=== PATIENT | female | born 1985 | race Caucasian/White ===

== ENCOUNTER 2016-05-09 12:03 | Emergency (ER) | payer OTHER, BC ==
[~2016-05-09] VITALS: Ht 167.6 cm; Wt 66.0 kg
[~2016-05-09 12:03] MED LIST: HYDR-3989 PO; IBUP-1547 PO; LEVO25TA49 PO; PREN1TAB53 PO
[2016-05-09 12:05] VITALS: Ht 167.6 cm; Wt 66.0 kg
--- NOTE | 2016-05-09 13:12 | NUR ---
PROVIDER Piper MATOS AMORTIZATION CLERK IN TO SEE PATIENT.
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
[2016-05-09 13:30] VITALS: BP 124/77; PULSE 70; RESP 14; TEMP 98; O2SAT 98
== END 2016-05-09 13:30 | disposition home or self-care (01) ==
LOC: ED 12:03
DX: Z04.1 Encounter for examination and observation following transport accident (principal); V49.40XA Driver injured in collision with unspecified motor vehicles in traffic accident, initial encounter; Y93.89 Activity, other specified; Y92.410 Unspecified street and highway as the place of occurrence of the external cause; Y99.8 Other external cause status

== ENCOUNTER → 2016-06-22 | Outpatient (CLI) | payer BC ==
[~2016-06-22] MED LIST changes: -HYDR-3989 PO; -IBUP-1547 PO; -LEVO25TA49 PO
[2016-06-22 16:14] LABS: HCG-QUANTITATIVE 328.94 mIU/mL
[2016-06-22 17:38] LABS: ALBUMIN 4.5 G/DL (3.5-5.0); ALBUMIN/GLOBULIN RATIO 1.6 RATIO (1.1-2.2); ALKALINE PHOSPHATASE 51 U/L (38-126); ALT (SGPT) 37 U/L (9-52); ANION GAP 14 MEQ/L (5-15); AST (SGOT) 19 U/L (14-36); BUN/CREATININE RATIO 13 RATIO (6-26); CALCIUM 9.6 MG/DL (8.4-10.2); CHLORIDE 108 MEQ/L (98-107); CO2 - CARBON DIOXIDE 19 MEQ/L (22-30); CREATININE 0.8 MG/DL (0.7-1.2); GLOMERULAR FILTRATION RATE 85; GLUCOSE 104 MG/DL (65-110); POTASSIUM 3.6 MEQ/L (3.6-5); SODIUM 141 MEQ/L (134-144); TOTAL PROTEIN 7.4 G/DL (6.3-8.2)
== END ==
LOC: LAB 15:28
PROVIDERS: ATTEND Obstetrics & Gynecology
DX: R10.30 Lower abdominal pain, unspecified (principal)
CPT/HCPCS: 36415; 80053; 84702

== ENCOUNTER 2017-10-08 05:00 | Inpatient (IN) ==
[2017-10-08] MEDS ORDERED: ACETAMINOPHEN 500 MG TABLET PO PRN (05:24)
[2017-10-08] MEDS ORDERED: MAG-AL + SIM ORAL LIQUID 30ml PO PRN (05:24)
[2017-10-08] MEDS ORDERED: LIDOCAINE 1% (10mg/ml) 2mL INJ PF SDV ID PRN (05:24)
[2017-10-08] MEDS ORDERED: D5LR 1,000 ML IV PRN (05:24)
[2017-10-08] MEDS ORDERED: SALINE FLUSH 10ml SYRINGE IV PRN (05:24)
[2017-10-08] MEDS ORDERED: METHYLERGONOVINE 0.2 MG/ML INJECTION IM PRN (05:24)
[2017-10-08] MEDS ORDERED: OXYTOCIN DRIP 30 UNIT/500 ML ML IV PRN (05:24)
[2017-10-08] MEDS ORDERED: CARBOPROST 250 MCG/ML INJECTION IM PRN (05:24)
[2017-10-08] MEDS ORDERED: CALCIUM CARBONATE Chewable 500mg TABLET PO PRN (05:24)
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
--- OUTSIDE RECORDS SUMMARY | 2017-10-08 05:24 | External Medical Summary | Continuity of Care Document ---
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) - (routine) w/o 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 Encounter for suprvsn of normal - , third trimester 31 weeks gestation of - Encounter for suprvsn of normal - , second trimester 23 weeks gestation of - Other specified hypothyroidism Other specified hypothyroidism - Acute upper respiratory infection, - unspecified Encounter for suprvsn of normal - , second trimester 15 weeks gestation of - Irregular Menses Threatened Lower abdominal pain, unspecified Pari Encounter for ot general cnsl and advice on procreation Unspec [...] third tri 33 weeks gestation of - Endo, nutritional and [...] third trimester 29 weeks gestation of - Personal history of comp of preg, chldbrth and the puerp Personal history of comp of preg, chldbrth and the puerp Hypothroidism, Unspecified - Active Abdominal Pain LLQ - Active Active Procedures Procedure Date Immuniz admnin, 1 vac, sngl/combo 19 Yrs + TDAP VACCINE >7 IM OB Visit No Charge Results Test Name Date and Time Measure Units Reference Range Abnormal Flag Comments Unknown Advance Directives Directive Yes / No Effective Date File Name Unknown Encounters Encounter Practice Location Reason(s) Diagnoses Date Provider Care Team Description For Visit [facility] [facility]aternal care for Denilson-0 Nj Referring In Womens excess 5-201 Gabbi. Provider: Fili CHUA, growth, third [address], [address] trimester, [id number] Medical [address], weeks gestation [facility], of , [place], [place], 120, [facility], [id number], [place], [address]. [place], tel:+ tel:+ [phone] , [place]. tel: [phone] Brock [place] Maternal care for Denilson-0 Nj Referring In Womens Ultrasound excess 5-201 Gabbi. Provider: Fili CHUA, growth, third [address], PO Box trimester, Medical [address], unspEndo, [facility], nutritional and , [place], metab diseases 120, [facility], , comp [place], [place], [address]. [place] tri33 weeks [place], tel:+ tel:+ gestation of [phone] , [place]. tel: [phone] Brock [place] Encounter for Joshua-2 Nj Referring In Womens suprvsn of normal 6-201 Gabbi. Provider: Fili CHUA, , third [address], PO Box weeks Medical [address], gestation of [facility], [place], 120, [facility], , [place], [address]. [place], tel:+ tel:+ [phone] , [place]. tel: [phone] Brock [place] Encounter for Joshua-1 Nj Referring In Womens suprvsn of normal 2-201 Gabbi. Provider: Fili CHUA, , third [address], PO Box [id number] weeks Medical [address], gestation of [facility], [place], 120, [facility], , [place], [address]. [place], tel:+ tel: [phone] , [place]. tel: [phone] [facility] May-2 Nj In Womens 5-201 Gabbi. [facility], 8 700 [address] Medical [address]22, Ronald [facility], Dr [facility], 120, [id number], [place], tel: [phone] , [place]. tel: [phone] [facility] Benson, nutritional May-2 Nj Referring In Womens and metab 4-201 Gabbi. Provider: [facility], diseases comp [address], PO Box preg, second Medical [address], triEncounter for [facility], [place] of normal [place], , second 120, [facility], [id number], [id number] [place], [address]. [place] gestation of [place], tel: tel: [phone] , [place]. tel: [phone] [facility] Green for May-0 Nj Referring In Womens suprvsn of normal 1-201 Gabbi. Provider: Health PA, , second [address], PO Box [id number] weeks Medical [address], gestation of [facility], [place], 120, [facility], [id number], [place], [address]. [place], tel: tel:[phone] , [place]. tel: [phone] [facility] Benson nutritional Apr-0 Nj Referring In Womens and metab 4-201 Gabbi. Provider: [facility], diseases comp [address], PO Box preg, second Medical [address], [facility], louisen of normal [place], , second 120, [facility], [id number], [id number] [place], [address]. [place] gestation of [place], tel:+ tel: [phone] , [place]. tel:[phone] [facility] Maternal care for Apr-0 Nj Referring In Womens Ultrasound excess 4-201 Gabbi. Provider: Health HARSHIL, growth, second [address], PO Box tri, unspEndo, Medical [address], nutritional and [facility], metab diseases [place], comp preg, second 120, [facility], [id number], tri20 [place], [address]. [place] gestation of [place], tel: tel: [phone] , [place]. tel: [phone] [facility] Acute upper Mar-0 Nj Referring In Womens respiratory 5-201 Gabbi. Provider: Health HARSHIL, infection, [address], PO Box unspecifiedEncoun Medical [address], ter for suprvsn [facility], of normal [place], , second 120, [facility], [id number], [id number] [place], [address]. [place] gestation of [place], tel: tel: [phone] , [place]. tel: [phone] Brock [place] Maternal care for Feb-2 Nj Referring In Womens excess 6-201 Gabbi. Provider: Fili CHUA, growth, second [address], PO Box tri, [id number] weeks Medical [address], gestation of [facility], [place], 120, [facility], [id number], [place], [address]. [place], tel: tel: [phone] , [place]. tel: [phone] [facility] Encounter for Regino-3 Nj Referring In Womens suprvsn of normal 0-201 Gabbi. Provider: Health HARSHIL, , first [address], PO Box [id number] weeks Medical [address], gestation of [facility], [place], 120, [facility], [id number], [place], [address]. [place], tel: tel: [phone] , [place]. tel: [phone] [facility] Encounter for Regino-0 Nj Referring In Womens suprvsn of normal 2-201 Gabbi. Provider: Health HARSHIL, , first [address], PO Box trimesterLess Medical [address], than 8 weeks [facility], gestation of , [place], 120, [facility], , [place], [address]. [place], tel: tel: [phone] , [place]. tel: [phone] [facility] Suprvsn of preg w Jan- Nj Referring In Womens history of ect or 0-201 Gabbi. Provider: Fili CHUA, molar preg, first [address], PO Box tri Medical [address], [facility] Dr Alyssia, [place], 120, [facility], , [place], [address]. [place], tel: tel:[phone] , [place]. tel: [phone] [facility] Personal history Jan- Nj In Womens of comp of preg, 1-201 Gabbi. Health HARSHIL, natali and the 7 700 [address] Box puerp Medical 15[address], [address] Dr Alyssia, [facility], 120, [id number], [place], [place], tel: [phone] , [place]. tel: [phone] [facility] MittelschmerzEnmn Sep-2 Nj Referring In Womens unter for oth 9-201 Gabbi. Provider: Health HARSHIL, general cnsl and [address], PO Box advice on Medical [address], procreation [facility] A[facility], [place], 120, [facility], , [place], [address]. [place], tel: tel: [phone] , [place]. tel: [phone] Brock [place] Pelvic and Aug-2 Nj In Womens perineal pain 1-201 Gabbi. Fili CHUA, 7 700 [address] Medical [address], [address] Dr Alyssia, [facility], 120, [id number], [place], [place], tel:+ [phone] , [place]. tel: [phone] [facility] Personal history Joshua-1 Curiel Referring In Womens of comp of preg, 5-201 Luz. Provider: Fili CHUA, rick and the [address], PO Box puerp Medical [address], [facility] [address] Alyssia, [place], [place], 120, [facility], , [place], [address]. [place], tel: tel: [phone] , [place]. tel: [phone] [facility] Unspec ectopic May-2 Curiel In Womens preg w/out 3-201 Luz. Fili CHUA, intrauterine preg 7 700 PO [facility] [address], [address] Alyssia, [facility], 120, [id number], [place], tel:+ [phone] , [place]. tel: [phone] [facility] Unspec ectopic May-1 Curiel In Womens preg w/out 7-201 Luz. Fili CHUA, intrauterine preg 7 700 PO [facility] [address], [address] Dr Alyssia, [facility], 120, [id number], [place], [place], tel: [phone] , [place]. tel: [phone] [facility] Encounter for May-0 Curiel Referring In Womens test, 9-201 Luz. Provider: Fili CHUA, result unknown 7 [address], PO Box Medical [address], [facility] [address] Alyssia, [place], [place], 120, [facility], , [place], [address]. [place], tel:+ tel:+ [phone] , [place]. tel: [phone] [facility] Unspec ectopic May-0 Curiel In Womens preg w/out 9-201 Luz. Health PA, intrauterine preg 7 700 PO Box Medical 1522, Center Dr Alyssia, [facility], 120, [id number], [place], [place], tel: [phone] , [place]. tel: [phone] [facility] Unspec ectopic May-0 Curiel Referring In Womens preg w/out 4-201 Luz. Provider: Health PA, intrauterine preg [address], PO Box Medical [address], [facility] [address] Alyssia, [place], [place], 120, [facility], [id number], [place], [address]. [place], tel: tel:[phone] , [place]. tel: [phone] [facility] Unspec ectopic May-0 Curiel Referring In Womens preg w/out 1-201 Luz. Provider: Health HARSHIL, intrauterine [address], PO Box preg Medical [address], state, incidental [facility] Alyssia, [place], [place], 120, [facility], [id number], [place], [address]. [place], tel: tel:[phone] , [place]. tel: [phone] [facility] Threatened May-0 Curiel Referring In Womens Ultrasound abortionLower 1-201 Luz. Provider: Health HARSHIL, abdominal pain, 7 [address], PO Box unspecified Medical [address], [facility] [address] Alyssia, [place], [place], 120, [facility], [id number], [place], [address]. [place] tel: tel: [phone] , [place]. tel: [phone] [facility] Lower abdominal Apr-2 Curiel In Womens pain, unspecified 8-201 Luz. Health HARSHIL, 7 700 PO Box Medical [address], [address] Alyssia, [facility], 120, [id number], [place], tel: [phone] , [place]. tel: [phone] Brock [place] Threatened Apr-2 Curiel Referring In Womens 7-201 Luz. Provider: Fili CHUA, 7 [address], PO Box Medical [address], [facility] [address] Alyssia, [place], [place], 120, [facility], , [place], [address]. [place], tel: tel: [phone] , [place]. tel: [phone] Brock [place] Irregular Apr-2 Curiel Referring In Womens MensesThreatened 5-201 Luz. Provider: Fili CHUA, abortionLower 7 [address], PO Box abdominal pain, Medical [address], unspecified [facility] [address] Alyssia, [place], [place], 120, [facility], , [place], [address]. [facility], tel: tel: [phone] , [place]. tel: [phone] Brock [place] Other specified Nov-1 Curiel Referring In Womens hypothyroidism 4-201 Luz. Provider: Fili CHUA, 6 [address], PO Box Medical [address], [facility] [address] Alyssia, [place], [place], 120, [facility], , [place], [address]. [place], tel:+ tel: [phone] , [place]. tel: [phone] Brock [place] Other specified Oct-2 Curiel In Womens hypothyroidism 7-201 Luz. Fili CHUA, 6 700 PO Box Medical [address], [address], [facility], 120, , [place], [place], tel: [phone] , [place]. tel: [phone] Brock [place] Encntr for manager membership Denilson-1 Curiel Referring In Womens exam (general) 9-201 Luz. Provider: Fili CHUA, (routine) w/o abn 6 [address], PO Box findings Medical [address], [facility] [address] Alyssia, [place], [place], 120, [facility], [id number], [place], [address]. [place], tel: tel: [phone] , [place]. tel: [phone] Brock [place] Dec-2 [place] Referring In Womens 2-201 Tamera. Provider: Health HARSHIL, [address], [facility] Medical [address], [facility] [address] Alyssia, [place], [place], 120, [facility], [id number], [place], [address]. [place], tel:+ tel: [phone] , [place]. tel: [phone] Brock [place] Oct-2 [place] Referring In Womens 0-201 Tamera. Provider: Health HARSHIL, 4 700 [address] Box Medical [place] 1522, Center S, [address], [facility], 120, Ronald , [facility], [place], tel: [phone] [place], , [place]. [id number]. tel: tel: [phone] Brock [place] Sep-1 [place] Referring In Womens 9-201 Tamera. Provider: Health HARSHIL, 4 700 [address] Box Medical [place] 1522, Center S, [address] Dr [address]lyssia, [facility], 120, Ronald [id number], [facility] 120, [place], tel:[phone] [place], , [place]. [id number]. tel: tel: [phone] Brock [place] Apr-2 [place] In Womens 1-201 Tamera. Health [facility], 4 700 [facility] Medical 1522, [address] Alyssia, [facility], 120, [id number], [place], [place], tel: [phone] , [place]. tel: [phone] Family History Family Member Diagnosis Age At [...] name Insurance type Covered republican ID Authorization(s) [facility] [id number] [facility] [id number] [facility] [id number] [facility] [id number] Social History Type Description Quantity Date Captured Alcohol Use Details No Caffeine Use Details Unknown Tobacco Use Status Unknown Smoking Status Never smoker Vital Signs Date / Height Weight BMI Pulse Blood Temperature Respiratory Body Head BMI Time: Rate Pressure Rate Surface Circumference percentile Area 169.90 29.1 -2018 lbs 6 8:49 kg/m AM eter (2) 169.90 29.1 107/69 -2018 lbs 6 mm[Hg] 8:49 kg/m AM eter (2) Chief Complaint And Reason For Visit Unknown Chief Complaint And Reason For Visit Reason For Referral Reason For Referral Unknown Plan Of Care Date Type Action Status Goal Lifestyle education regarding completed diet Goal Lifestyle education regarding completed diet Goal Lifestyle education regarding completed diet Appointment Francesca Sanders BOOKED Future Order: Radiology Order Complete OB Ultrasound > 14 Weeks Ordered ([id number]) Future Order: Radiology Order Ultrasound OB Follow-up ([id number]) Ordered Future Order: Lab Order hCG,Beta Subunit, Qnt, Serum Ordered ([id number]) Date Type Problem Goal Intervention Status Start [...]
--- OUTSIDE RECORDS SUMMARY | 2017-10-08 05:24 | External Medical Summary | Continuity of Care Document ---
:1985 Author Organization [facility] Address [address] [place], [place] [id number] Phone Care Team Providers Name Role Phone [...] (start - stop) Clinical Status Encntr for die forger exam (general) - (routine) w/o 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 Maternal care for excess growth, - third trimester, unsp 33 weeks gestation of - Other specified hypothyroidism Other specified hypothyroidism - Acute upper respiratory infection, - unspecified Encounter for suprvsn of normal - , second trimester 15 weeks gestation of - Irregular Menses Threatened Lower abdominal pain, unspecified [facility] Encounter for ot general cnsl and advice [...] third tri 33 weeks gestation of - Maternal care [...] LLQ - Active Active Procedures Procedure Date OB Visit No Charge Results Test Name [...] [address], unspEncounter for [facility] [place], suprvsn of normal Drive, [place], [place], , third [address] [place], [id number], [email or web address] weeks 120, [place], [address]. [place] gestation of [place], tel:+ tel:+ [phone], [place]. tel: [phone] [facility] Maternal care for Denilson-0 Nj Referring In Womens excess 5-201 Gabbi. Provider: Fili CHUA, growth, third [address], PO Box trimester, unsp33 Medical [address], weeks gestation [facility] [place], of [place], 120, [place], , [place], [address]. [place], tel:+ tel: [phone] , [place]. tel: [phone] [facility] Maternal care for Denilson-0 Nj Referring In Womens Ultrasound excess 5-201 Gabbi. Provider: Fili CHUA, growth, third [address], PO Box trimester, Medical [address], unspEndo, [facility] [place], nutritional and [place], metab diseases 120, [place], , comp preg, [place], [address]. [place] tri33 weeks [place], tel:+ tel:+ gestation of [phone] , [place]. tel: [phone] [facility] Encounter for Joshua-2 Nj Referring In Womens suprvsn of normal 6-201 Gabbi. Provider: Fili CHUA, , third [address], PO Box [email or web address] weeks Medical [address], gestation of [facility] [place], [place], 120, [place], , [place], [address]. [place], tel: tel: [phone] , [place]. tel: [phone] Brock [place] Encounter for Joshua-1 Nj Referring In Womens suprvsn of normal 2-201 Gabbi. Provider: Health PA, , third [address], PO Box [email or web address] weeks Medical [address], gestation of [facility] [place], [place], 120, [place], [id number], [place], [address]. [place], tel:+ tel: [phone] , [place]. tel: [phone] Brock [place] May-2 Nj In Womens 5-201 Gabbi. Health PA, 8 700 [address] Medical [address]22, [place], , [facility], 120, [id number], [place], tel: [phone] , [place]. tel: [phone] Brock Benson nutritional May-2 Nj Referring In Womens and metab 4-201 Gabbi. Provider: Health [place], diseases comp [address], PO Box preg, second Medical [address], triEncounter for [facility] [place], suprvsn of normal [place], , second 120, [place], [id number], [place], [address]. [place] gestation of [place], tel: tel: [phone] , [place]. tel: [phone] Brock [place] Encounter for May-0 Nj Referring In Womens suprvsn of normal 1-201 Gabbi. Provider: Health [facility], , second [address], PO Box [id number] weeks Medical [address], gestation of [facility] [place], [place], [place], 120, [place], [id number], [place], [address]. [place], tel: tel: [phone] , [place]. tel: [phone] [facility] [place] End[facility], nutritional Apr-0 Nj Referring In Womens and metab 4-201 Gabbi. Provider: Health HARSHIL, diseases comp [address], PO Box preg, second Medical [address], triEncounter for [facility] [place], suprvsn of normal [place], , second 120, [place], [id number], [id number] [place], [address]. [place] gestation of [place], tel:+ tel:+ [phone] , [place]. tel: [phone] Brock [place] Maternal care for Apr-0 Nj Referring In Womens Ultrasound excess 4-201 Gabbi. Provider: Health HARSHIL, growth, second [address], PO Box tri, unspEndo, Medical [address], nutritional and [facility] [place], metab diseases , [place], comp preg, second 120, [place], [id number], tri20 [place], [address]. [place] gestation of [place], tel:+ tel:+ [phone] , [place]. tel: [phone] Brock [place] Acute upper Mar-0 Nj Referring In Womens respiratory 5-201 Gabbi. Provider: Fili CHUA, infection, [address], PO Box unspecifiedEncoun Medical [address], ter for suprvsn [facility] [place], of normal [place], , second 120, [place], [id number], [id number] [place], [address]. [place] gestation of [place], tel:+ tel:[phone] , [place]. tel: [phone] [facility] Maternal care for Feb-2 Nj Referring In Womens excess 6-201 Gabbi. Provider: Health PA, growth, second [address], PO Box tri, [email or web address] weeks Medical [address], gestation of [facility] [place], [place], 120, [place], [id number], [place], [address]. [place], tel:+ tel: [phone] , [place]. tel: [phone] Brock [place] Encounter for Feb-3 Nj Referring In Womens suprvsn of normal 0-201 Gabbi. Provider: Fili CHUA, , first [address], PO Box [email or web address] weeks Medical [address], gestation of [facility] [place], [place], 120, [place], , [place], [address]. [place], tel: tel: [phone] , [place]. tel: [phone] Brock [place] Encounter for Feb-0 Nj Referring In Womens suprvsn of normal 2-201 Gabbi. Provider: Fili CHUA, , first [address], PO Box trimesterLess Medical [address], than 8 weeks [facility] [place], gestation [place], 120, [place], , [place], [address]. [place], tel: tel: [phone] , [place]. tel: [phone] Brock [place] Suprvsn of preg w Jan- Nj Referring In Womens history of ect or 0-201 Gabbi. Provider: Fili CHUA, molar preg, first [address], PO Box tri Medical [address], Center [address]riage Dr Alyssia, [place], 120, [place], , [place], [address]. [place], tel: tel: [phone] , [place]. tel: [phone] Brock [place] Personal history Dec- Nj In Womens of comp of preg, 1-201 Gabbi. rick Keating and the 7 700 [address] Box puerp Medical [address], [place] [address], [facility], 120, , [place], [place], tel: [phone] , [place]. tel: [phone] [facility]-2 Nj Referring In Womens unter for oth 9-201 Gabbi. Provider: Health HARSHIL, general cnsl and [address], PO Box advice on Medical [address], procreation [facility] [address] Alyssia, [facility], [place], 120, [place], [id number], [place], [address]. [place], tel:+ tel:+ [phone] , [place]. tel: [phone] [facility] Pelvic and Sep-2 Nj In Womens perineal pain 1-201 Gabbi. Fili CHUA, 7 700 [address] Medical [address], [place] [address], [facility], 120, , [facility] [place], tel:+ [phone] , [place]. tel: [phone] [facility] Personal history Joshua-1 Curiel Referring In Womens of comp of preg, 5-201 Luz. Provider: Fili CHUA, rick and the [address], PO Box puerp Medical [address], Center [facility] [address] Alyssia, [place], [place], 120, [place], [id number], [place], [address]. [place], tel:+ tel:+ [phone] , [place]. tel: [phone] [facility] Unspec ectopic May-2 Curiel In Womens preg w/out 3-201 Luz. Health HARSHIL, intrauterine preg 7 700 [address] Medical [address], [place] [address], [facility], 120, [id number], [place], [place], tel:+ [phone] , [place]. tel:[phone] [facility] Unspec ectopic May-1 Curiel In Womens preg w/out 7-201 Luz. Fili CHUA, intrauterine preg 7 700 [address] Medical [address], [place] [address], [facility] [place], 120, [id number], [place], [place], tel:+ [phone] , [place]. tel: [phone] [facility] Encounter for May-0 Curiel Referring In Womens test, 9-201 Luz. Provider: Fili CHUA, result unknown [address], PO Box Medical [address], [facility] [address] [address], [place], [place], 120, [place], [id number], [place], [address]. [place], tel:+ tel:+ [phone] , [place]. tel: [phone] [facility] Unspec ectopic May-0 Curiel In Womens preg w/out 9-201 Luz. Fili CHUA, intrauterine preg 7 700 [address] Medical [address], [address], [facility], 120, [id number], [place], tel: [phone] , [place]. tel: [phone] [facility] Unspec ectopic May-0 Curiel Referring In Womens preg w/out 4-201 Luz. Provider: Fili CHUA, intrauterine preg [address], PO Box Medical [address], Center [address]lyss[place], [facility] [place], [place], 120, [place], [id number], [place], [address]. [place], tel:+ tel: [phone] , [place]. tel: [phone] [facility] Unspec ectopic May-0 Curiel Referring In Womens preg w/out 1-201 Luz. Provider: Fili CHUA, intrauterine [address], PO Box preg Medical [address], state, incidental [facility] [address], [place], [place], 120, [place], [id number], [place], [address]. [place], tel:+ tel: [phone] , [place]. tel: [phone] [facility] Threatened May-0 Curiel Referring In Womens Ultrasound abortionLower 1-201 Luz. Provider: Flii CHUA, abdominal pain, [address], PO Box unspecified Medical [address], [facility] [address] [address], [place], [place], 120, [place], , [place], [address]. [place], tel: tel: [phone] , [place]. tel: [phone] [facility] Lower abdominal Apr-2 Curiel In Womens pain, unspecified 8-201 Luz. Fili CHUA, 7 700 PO [address] Medical [address], Center Dr [address]lyssia, [facility], 120, [id number], [place], [place], tel: [phone] , [place]. tel: [phone] [facility] Threatened Apr-2 Curiel Referring In Womens 7-201 Luz. Provider: Fili CHUA, [address], PO Box Medical [address], [address]lyss[address], [place], [place], 120, [place], , [place], [address]. [place], tel: tel:[phone] , [place]. tel: [phone] [facility] Irregular Apr-2 Curiel Referring In Womens MensesThreatened 5-201 Luz. Provider: Fili CHUA, abortionLower 7 [address], PO Box abdominal pain, Medical [address], unspecified [facility] [address], [place], [place], 120, [place], , [place], [address]. [facility], tel: tel:[phone] , [place]. tel: [phone] [facility] Other specified Nov-1 Curiel Referring In Womens hypothyroidism 4-201 Luz. Provider: Fili CHUA, [address], PO Box Medical [address], [address]lyss[address], [place], [place], 120, [place], , [place], [address]. [facility], tel:+ tel:[phone] , [place]. tel: [phone] [facility] Other specified Oct-2 Curiel In Womens hypothyroidism 7-201 Luz. Health HARSHIL, 6 700 [address] Medical [address], [address] Dr [address]lyss[address], [facility] [place], 120, [id number], [place], [place], tel: [phone] , [place]. tel: [phone] [facility] Encntr for die forger Denilson-1 Curiel Referring In Womens exam (general) 9-201 Luz. Provider: Health HARSHIL, (routine) w/o abn [address], PO Box [facility] Medical [address], [address]lyss[address], [place], [place], 120, [place], [id number], [place], [address]. [place], tel:+ tel: [phone] , [place]. tel: [phone] Brock [place] Dec-2 Holdj[place] c Referring In Womens 2-201 Tamera. Provider: Health HARSHIL, [address], PO Box Medical [address], Center [facility] [address], [place], [place], 120, [place], [id number], [place], [address]. [place], tel: tel:[phone] , [place]. tel: [phone] Brock [place] Oct-2 [place] Referring In Womens 0-201 Tamera. Provider: Fili CHUA, 4 700 [place] PO Box Medical [place] [address], Center S, [address], Psychiatric, 120, [place] [id number], [facility], [place], tel: [phone] [place], , [place]. [id number]. tel: tel: [phone] Brock [place] Sep-1 Marc Referring In Womens 9-201 Tamera. Provider: Health HARSHIL, 4 700 [place] [address] Box Medical [place] [address], Center S, [address], [facility] [place], 120, [place] [id number], [facility], [place], tel:[phone] [place], , [place]. [id number]. tel: tel: [phone] Brock [place] Marc In Womens 1-201 Tamera. [facility], 4 700 PO [facility] 15[address], [place] [address], [facility], 120, [id number], [place], [place], tel:[phone] , [place]. tel: [phone] Family History Family Member Diagnosis Age At [...] older Payers Payer name Insurance type Covered libertarian ID Authorization(s) [facility] [id number] [facility] [id number] [facility] [id number] [facility] [id number] Social History Type Description Quantity Date Captured Alcohol Use Details No Caffeine Use Details Unknown Tobacco Use Status Unknown Smoking Status Never smoker Vital Signs Date / Height Weight BMI Pulse Blood Temperature Respiratory Body Head BMI Time: Rate Pressure Rate Surface Circumference percentile Area 171.30 29.4 107/69 2018 lbs 0 mm[Hg] 9:16 kg/m AM eter (2) 6 9:10 kg/m AM eter (2) Chief Complaint And [...] Complete OB Ultrasound > 14 Weeks Ordered ([id number]) Future Order: Radiology Order Ultrasound OB Follow-up ([id number]) Ordered Future Order: Lab Order hCG,Beta Subunit, Qnt, Serum Ordered ([id number]) Date Type Problem Goal Intervention Status Start [...]
--- OUTSIDE RECORDS SUMMARY | 2017-10-08 05:24 | External Medical Summary | Continuity of Care Document ---
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 Maternal care for excess growth, - third trimester, unsp Encounter for suprvsn of normal - , third trimester 35 weeks gestation of - Other specified hypothyroidism Other specified hypothyroidism - Acute upper respiratory infection, - unspecified Encounter for suprvsn of normal - , second trimester 15 weeks gestation of - Irregular Menses Threatened Lower abdominal pain, unspecified Mitteludy Encounter for oth general cnsl and advice [...] for excess growth, - third trimester, unsp 36 weeks gestation of - Maternal care for excess growth, - third trimester, unsp Endo, nutritional and metab diseases - comp preg, third tri 33 weeks gestation of - Maternal care for excess growth, - third trimester, unsp Encounter for suprvsn of normal - , third trimester 37 weeks gestation of - Endo, nutritional and [...] Procedures Procedure Date OB Visit No Charge lupis Burksnsm, screen Results Test Name Date and Time Measure Units Reference Range Abnormal Flag Comments Panel Description: Strep Gp B Culture Strep Gp B Negative Negative Centers for Disease Control Culture 10:57:00 and Prevention (CDC) and [place] Congressof Obstetricians and Gynecologists (ACOG) guidelines for prevention ofperinatal group B streptococcal (GBS) disease specify co-collection ofa vaginal and rectal swab specimen to maximize sensitivity of GBSdetection. Per the CDC and ACOG, swabbing both the lower vagina andrectum substantially increases the yield of detection compared withsampling the vagina alone. .Penicillin G, ampicillin, or cefazolin are indicated for intrapartumprophylaxis of GBS colonization. Reflex susceptibilitytesting should be performed prior to use of clindamycin only on GBSisolates from penicillin-allergic women who are considered a high riskfor anaphylaxis. Treatment with vancomycin without additional testingis warranted if resistance to clindamycin is noted. Advance Directives Directive Yes / No Effective Date File Name Unknown Encounters Encounter Practice Location Reason(s) Diagnoses Date Provider Care Team Description For Visit Members Brock [place] Maternal care for Nj Referring In Womens excess 3-201 Gabbi. Provider: Fili CHUA growth, third 8 [address], PO Box trimester, Medical [address], unspEncounter for Center Carriage [place] of normal [place], , third 120, [place], [id number], [email or web address] [place], [address]. [place] gestation of [place], tel: tel: [phone] , [place]. tel: [phone] Brock [place] Maternal care for Nj Referring In Womens excess 6-201 Gabbi. Provider: Fili CHUA, growth, third [address], PO Box trimester, [email or web address] Medical [address], weeks gestation Center Carriage [place], of [place], 120, [place], [id number], [place], [address]. [place], tel: tel:[phone] , [place]. tel: [phone] [facility] Maternal care for Denilson-1 Sobbing Referring In Womens excess 9-201 Brady. Provider: Fili CHUA, growth, third [address], PO Box trimester, Medical [address], unspEncounter for Center Carriage [place], suprvsn of normal Drive, [place], [place], , third Suite [employer] [place], [id number], [email or web address] weeks [facility] [place], [address]. [place] gestation of [place], tel: tel: [place], [phone], [place]. tel: [phone] [facility] Maternal care for Denilson-0 Nj Referring In Womens excess 5-201 Gabbi. Provider: Fili CHUA, growth, third [address], PO Box trimester, [email or web address] Medical [address] 15[address], weeks gestation Center Carriage [place], of Dr, [facility] [place] [place], 120, [place], [id number], [place], [address]. [place], tel: tel:[phone] , [place]. tel: [phone] [facility] Maternal care for Denilson-0 Nj Referring In Womens Ultrasound excess 5-201 Gabbi. Provider: Fili CHUA, growth, third [address], PO Box trimester, Medical [address], unspEndo, Center Carriage [place], nutritional and Reji [place], [place], metab diseases 120, [place], [id number], comp preg, [place], [address]. [place] tri33 weeks [place], tel:+ tel: gestation of [phone] , [place]. tel: [phone] [facility] Encounter for Joshua-2 Nj Referring In Womens suprvsn of normal 6-201 Gabbi. Provider: Fili CHUA, , third [address], PO Box [email or web address] weeks Medical [address], gestation of Center Carriage [place], Re[place], 120, [place], [id number], [place], [address]. [place], tel: tel: [phone] , [place]. tel: [phone] Brock [place] Encounter for Joshua-1 Nj Referring In Womens suprvsn of normal 2-201 Gabbi. Provider: Health HARSHIL, , third [address], PO Box [email or web address] weeks Medical [address], gestation of Center Carriage [place], Reji [place]avez [place], 120, [place], [id number], [place], [address]. [place], tel: tel: [phone] , [place]. tel: [phone] Brock Parn[place] May-2 Nj In Womens 5-201 Gabbi. Fili CHUA, 8 700 PO Box Medical 1522, [place], , [facility], 120, [id number], [place], tel: [phone] , [place]. tel: [phone] [facility] Endo, nutritional May-2 Nj Referring In Womens and metab 4-201 Gabbi. Provider: Fili CHUA, diseases comp [address], PO Box preg, second Medical [address], triEncounter for Center Carriage [place], suprvsn of normal [place], , second 120, [place], [id number], [email or web address] [place], [address]. [place] gestation of [place], tel: tel: [phone] , [place]. tel: [phone] Brock [place] Encounter for May-0 Nj Referring In Womens suprvsn of normal 1-201 Gabbi. Provider: Fili CHUA, , second [address], PO Box [email or web address] weeks Medical [address], gestation of Center Carriage [place], [place], 120, [place], [id number], [place], [address]. [place], tel:+ tel:+ [phone] , [place]. tel: [phone] [facility] Endo, nutritional Apr-0 Nj Referring In Womens and metab 4-201 Gabbi. Provider: Health HARSHIL, diseases comp [address], PO Box preg, second Medical [address], triEncounter for Center Carriage [place], suprvsn of normal [place], [place], , second 120, [place], [id number], [id number] [place], [address]. [place] gestation of [place], tel:+ tel:+ [phone] , [place]. tel: [phone] [facility] Maternal care for Apr-0 Nj Referring In Womens Ultrasound excess 4-201 Gabbi. Provider: Fili CHUA, growth, second [address], PO Box tri, unspEndo, Medical [address], nutritional and Center Carriage [place], metab diseases , [place], comp preg, second 120, [place], [id number], [id number] [place], [address]. [place] gestation of [place], tel:+ tel: [phone] , [place]. tel: [phone] [facility] Acute upper Mar-0 Nj Referring In Womens respiratory 5-201 Gabbi. Provider: Fili CHUA, infection, [address], PO Box unspecifiedEncoun Medical [address], ter for suprvsn Center Carriage [place], of [place], [place], , second 120, [place], [id number], [email or web address] [place], [address]. [place] gestation of [place], tel:+ tel:+ [phone] , [place]. tel: [phone] [facility] Maternal care for Feb-2 Nj Referring In Womens excess 6-201 Gabbi. Provider: Health HARSHIL, growth, second [address], PO Box tri, [email or web address] weeks Medical [address], gestation of Center Carriage [place], [place], 120, [place], [id number], [place], [address]. [place], tel:+ tel: [phone] , [place]. tel: [phone] Brock Parn[place] Encounter for Feb-3 Nj Referring In Womens suprvsn of normal 0-201 Gabbi. Provider: Fili CHUA, , first [address], PO Box [email or web address] weeks Medical [address], gestation of Center Carriage [place], [place], 120, [place], [id number], [place], [address]. [place], tel:+ tel: [phone] , [place]. tel: [phone] Brock Parnell Encounter for Regino-0 Nj Referring In Womens suprvsn of normal 2-201 Gabbi. Provider: Fili CHUA, , first [address], PO Box trimesterLess Medical [address] 15[address], than 8 weeks Center Carriage [place], gestation of [place], 120, [place], , [place], [address]. [place], tel:+ tel: [phone] , [place]. tel: [phone] Brock Parnell Suprvsn of preg w Dec-2 Nj Referring In Womens history of ect or 0-201 Gabbi. Provider: Fili CHUA, molar preg, first [address], PO Box tri Medical [address], Center [facility] [address] [place], 120, [place], , [place], [address]. [place], tel:+ tel: [phone] , [place]. tel: [phone] Brock Parn[place] Personal history Dec-1 Nj In Womens of comp of preg, 1-201 Gabbi. Fili CHUA, rick and the 7 700 PO Box puerp Medical 1522, [place] [address] Alyssia [place], 120, [id number], [place], [place], tel: [phone] , [place]. tel: [phone] [facility] MittelschmerzEnco Aug-2 Nj Referring In Womens unter for oth 9-201 Gabbi. Provider: Health HARSHIL, general cnsl and [address], PO Box advice on Medical [address], procreation Center [facility] Dr Alyssia, [place], [place], 120, [place], , [place], [address]. [place], tel: tel: [phone] , [place]. tel: [phone] [facility] Pelvic and Sep-2 Nj In Womens perineal pain 1-201 Gabbi. Fili CHUA, 7 700 PO Box Medical [address]22, [address], [facility], 120, , [facility] [place], tel:[phone] , [place]. tel: [phone] [facility] Personal history Joshua-1 Curiel Referring In Womens of comp of preg, 5-201 Luz. Provider: Fili CHUA, rick and the [address], PO Box puerp Medical [address], Center [address], [place], [place], 120, [place], , [place], [address]. [facility], tel: tel:[phone] , [place]. tel: [phone] [facility] Unspec ectopic May-2 Curiel In Womens preg w/out 3-201 Luz. Health HARSHIL, intrauterine preg 7 700 PO Box Medical [address]22, [address], [facility], 120, , [facility] [place], tel:[phone] , [place]. tel: [phone] [facility] Unspec ectopic May-1 Curiel In Womens preg w/out 7-201 Luz. Fili CHUA, intrauterine preg 7 700 PO Box Medical 1522, Center Dr Alyssia, [facility], 120, [id number], [place], tel:+ [phone] , [place]. tel: [phone] [facility] Encounter for May-0 Curiel Referring In Womens test, Luz. Provider: Fili CHUA, result unknown [address], PO Box Medical [address], Center Carriage Dr Alyssia, [facility] [place], [place], 120, [place], [id number], [place], [address]. [place], tel:+ tel:+ [phone] , [place]. tel: [phone] [facility] Unspec ectopic May-0 Curiel In Womens preg w/out 9- Luz. Fili CHUA, intrauterine preg 7 700 PO Box Medical 1522, Center Dr Alyssia, [facility], 120, [id number], [place], tel:+ [phone] , [place]. tel: [phone] [facility] Unspec ectopic May-0 Curiel Referring In Womens preg w/out 4- Luz. Provider: Fili CHUA, intrauterine preg [address], PO Box Medical [address], Center Carriage Dr Alyssia, [place], 120, [place], , [place], [address]. [place], tel:+ tel:+ [phone] , [place]. tel: [phone] [facility] Unspec ectopic May-0 Curiel Referring In Womens preg w/out -201 Luz. Provider: Fili CHUA, intrauterine [address], PO Box preg Medical [address], state, incidental Center Carriage Dr Alyssia, [place], 120, [place], , [place], [address]. [place], tel:+ tel:+ [phone] , [place]. tel: [phone] [facility] Threatened May-0 Curiel Referring In Womens Ultrasound abortionLower 1-201 Luz. Provider: Health HARSHIL, abdominal pain, [address], PO Box unspecified Medical [address], Center Carriage Dr Alyssia, [place], [place], 120, [place], [id number], [place], [address]. [place], tel: tel: [phone] , [place]. tel: [phone] [facility] Lower abdominal Apr-2 Curiel In Womens pain, unspecified 8-201 Luz. Health HARSHIL, 7 700 PO Box Medical 1522, Center Dr Alyssia, [facility], 120, [id number], [place], [place], tel: [phone] , [place]. tel: [phone] [facility] Threatened Apr-2 Curiel Referring In Womens 7-201 Luz. Provider: Fili CHUA, [address], PO Box Medical [address], Center [address]riage Dr Alyssia, [place], [place], 120, [place], , [place], [address]. [place], tel: tel: [phone] , [place]. tel: [phone] [facility] Irregular Apr-2 Curiel Referring In Womens MensesThreatened 5-201 Luz. Provider: Fili CHUA, abortionLower [address], PO Box abdominal pain, Medical [address], unspecified Center [address] Alyssia, [place], [place], 120, [place], , [place], [address]. [place], tel: tel: [phone] , [place]. tel: [phone] [facility] Other specified Nov-1 Curiel Referring In Womens hypothyroidism 4-201 Lzu. Provider: Fili CHUA, [address], PO Box Medical [address], Center [address]riage Dr Alyssia, [place], [place], 120, [place], [id number], [place], [address]. [place], tel: tel: [phone] , [place]. tel: [phone] [facility] Other specified Oct-2 Curiel In Womens hypothyroidism 7-201 Luz. Health HARSHIL, 6 700 PO Box Medical 1522, Center Dr Alyssia, [facility] [place], 120, [id number], [place], [place], tel:+ [phone] , [place]. 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 Provider: Health HARSHIL, (routine) w/o abn [address], PO Box [facility] Medical [address], Center Carriage Dr Alyssia, [place], [place], 120, [place], [id number], [place], [address]. [place], tel:+ tel: [phone] , [place]. tel: [phone] Brock Parn[place] Dec-2 [place] Referring In Womens 2-201 Tamera. Provider: Health HARSHIL, [address], PO Box Medical [address], Center Carriage Dr Alyssia, [place], [place], 120, [place], [id number], [place], [address]. [place], tel:+ tel: [phone] , [place]. tel: [phone] Brock Parnell Oct-2 [place] Referring In Womens 0-201 Tamera. Provider: Health HARSHIL, 4 700 [place] PO Box Medical [place] 1522, Center S, [address] Dr [address]lyssia, [facility], 120, [place] [id number], [facility] 120, [place], [place], tel: [phone] [place], , [place]. [id number]. tel: tel: [phone] Brock Parnell Sep-1 [place] Referring In Womens 9-201 Tamera. Provider: Health HARSHIL, 4 700 [place] PO Box Medical [place] 1522, Center S, [address] Dr [address]lyssia, [facility] [place], [address] [id number], Reji [place] 120, [place], [place], tel: [phone] [place], , [place]. [id number]. tel: tel: [phone] [facility] May- Marc In Womens 1-201 Tamera. [facility], 4 700 PO [facility] 1522, [place] [address] Alyssia, [place], 120, [id number], [place], [facility], tel: [phone] , . tel: [phone] Family History Family Member Diagnosis Age At [...] older Payers Payer name Insurance type Covered green party ID Authorization(s) [facility] [id number] [facility] [place] [id number] [facility] [id number] [facility] BL [id number] Social History Type Description Quantity Date Captured Alcohol Use Details No Caffeine Use Details Unknown Tobacco Use Status Unknown Smoking Status Never smoker Vital Signs Date / Height Weight BMI Pulse Blood Temperature Respiratory Body Head BMI Time: Rate Pressure Rate Surface Circumference percentile Area 171.00 29.3 / lbs 5 mm[Hg] 10:46 kg/m AM eter (2) Chief Complaint And [...] Complete OB Ultrasound > 14 Weeks Ordered ([id number]) Future Order: Radiology Order Ultrasound OB Follow-up ([id number]) Ordered Future Order: Lab Order hCG,Beta Subunit, Qnt, Serum Ordered ([id number]) Date Type Problem Goal Intervention Status Start [...]
--- OUTSIDE RECORDS SUMMARY | 2017-10-08 05:24 | External Medical Summary | Continuity of Care Document ---
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 Maternal care for excess growth, - third trimester, unsp 36 weeks gestation of - Other specified hypothyroidism Other specified hypothyroidism - Acute upper respiratory infection, - unspecified Encounter for suprvsn of normal - , second trimester 15 weeks gestation of - Irregular Menses Threatened Lower abdominal pain, unspecified [facility] Encounter for ot general cnsl and [...] third trimester 37 weeks gestation of - Maternal care for [...] suprvsn of normal - , third trimester 38 weeks gestation of - Encounter for suprvsn [...] Team Description For Visit Members Brock [place] Encounter for Nj Referring In Womens suprvsn of normal 0-201 Gabbi. Provider: Health HARSHIL, , third [address], [address] [id number] weeks Medical [address], gestation of [facility] [place], [place], 120, [place], [id number], [place], [address]. [place], tel: tel:[phone] , [place]. tel: [phone] Brock [place] Maternal care for Sep-0 Nj Referring In Womens excess 3-201 Gabbi. Provider: Fili CHUA, growth, third [address], PO Box trimester, Medical [address], unspEncounter for [facility] [place], suprvsn of normal [place], , third 120, [place], [id number], [email or web address] [place], [address]. [place] gestation of [place], tel: tel: [phone] , [place]. tel: [phone] Brock [place] Maternal care for Nj Referring In Womens excess 6-201 Gabbi. Provider: Fili CHUA, growth, third [address], PO Box trimester, unsp36 Medical [address], weeks gestation [facility] [place], of [place], 120, [place], [id number], [place], [address]. [place], tel: tel: [phone] , [place]. tel:[phone] [facility] Maternal care for Denilson-1 Sobbing Referring In Womens excess 9-201 Brady. Provider: Fili CHUA, growth, third [address], PO Box trimester, Medical [address], unspEncounter for [facility] [place], suprvsn of normal Drive, [place], [place], , third [address] [place], [id number], [email or web address] weeks 120, [place], [address]. [place] gestation of [place], tel: tel: [phone], [place]. tel: [phone] [facility] Maternal care for Denilson-0 Nj Referring In Womens excess 5-201 Gabbi. Provider: Fili CHUA, growth, third [address], PO Box trimester, [email or web address] Medical [address], weeks gestation [facility] [place], of [place], 120, [place], , [place], [address]. [place], tel: tel: [phone] , [place]. tel: [phone] [facility] Maternal care for Denilson-0 Nj Referring In Womens Ultrasound excess 5-201 Gabbi. Provider: Fili CHUA, growth, third [address], PO Box trimester, Medical [address], unspEndo, [facility] [place], nutritional and [place], [place], metab diseases 120, [place], [id number], comp preg, [place], [address]. [place] tri33 weeks [place], tel: tel: gestation of [phone] , [place]. tel: [phone] [facility] Encounter for Joshua-2 Nj Referring In Womens suprvsn of normal 6-201 Gabbi. Provider: Fili CHUA, , third [address], PO Box [id number] weeks Medical [address], gestation of [facility] [place], [place], 120, [place], , [place], [address]. [place], tel:+ tel: [phone] , [place]. tel: [phone] Brock [place] Encounter for Joshua-1 Nj Referring In Womens suprvsn of normal 2-201 Gabbi. Provider: Health PA, , third [address], PO Box weeks Medical [address], gestation of [facility] [place], [place], 120, [place], [id number], [place], [address]. [place], tel:+ tel:+ [phone] , [place]. tel: [phone] Brock [place] May-2 Nj In Womens 5-201 Gabbi. Health PA, 8 700 PO Box Medical 1522, [place], [facility], 120, [id number], [place], [place], tel: [phone] , [place]. tel: [phone] Brock Benson nutritional May-2 Nj Referring In Womens and metab 4-201 Gabbi. Provider: Health [place], diseases comp [address], PO Box preg, second Medical [address], triEncounter for [facility] [place], suprvsn of normal [place], , second 120, [place], [id number], [id number] [place], [address]. [place] gestation of [place], tel: tel: [phone] , [place]. tel: [phone] Brock [place] Encounter for May-0 Nj Referring In Womens suprvsn of normal 1-201 Gabbi. Provider: Health PA, , second [address], PO Box [id number] weeks Medical [address], gestation of [facility] [place], [place], 120, [place], [id number], [place], [address]. [place], tel:+ tel: [phone] , [place]. tel: [phone] Brock Benson nutritional Apr-0 Nj Referring In Womens and metab 4-201 Gabbi. Provider: Health HARSHIL, diseases comp [address], PO Box preg, second Medical [address], triEncounter for [facility] [place], suprvsn of normal [place], , second 120, [place], [id number], [id number] [place], [address]. [place] gestation of [place], tel:+ tel:+ [phone] , [place]. tel: [phone] Brock [place] Maternal care for Apr-0 Nj Referring In Womens Ultrasound excess 4-201 Gabbi. Provider: Health PA, growth, second [address], PO Box tri, unspEndo, Medical [address], nutritional and [facility] [place], metab diseases [place], comp preg, second 120, [place], [id number], tri20 [place], [address]. [place] gestation of [place], tel: tel:+ [phone] , [place]. tel: [phone] Brock Parn[place] Acute upper Mar-0 Nj Referring In Womens respiratory 5-201 Gabbi. Provider: Health HARSHIL, infection, [address], PO Box unspecifiedEncoun Medical [address], ter for suprvsn [facility] [place], of normal [place], , second 120, [place], [id number], [id number] [place], [address]. [place] gestation of [place], tel:+ tel:+ [phone] , [place]. tel: [phone] Brock Parn[place] Maternal care for Feb-2 Nj Referring In Womens excess 6-201 Gabbi. Provider: Health HARSHIL, growth, second [address], PO Box tri, [email or web address] weeks Medical [address], gestation of [facility] [place], [place], 120, [place], [id number], [place], [address]. [place], tel:+ tel:+ [phone] , [place]. tel: [phone] Brock Parn[place] Encounter for Feb-3 Nj Referring In Womens suprvsn of normal 0-201 Gabbi. Provider: Fili CHUA, , first [address], PO Box [id number] weeks Medical [address], gestation of [facility] [place], [place], [place], 120, [place], [id number], [place], [address]. [place], tel: tel: [phone] , [place]. tel: [phone] Brock Parn[place] Encounter for Regino-0 Nj Referring In Womens suprvsn of normal 2-201 Gabbi. Provider: Fili CHUA, , first [address], PO Box trimesterLess Medical [address] 15[address], than 8 weeks [facility] [place], gestation of [place], [place], 120, [place], [id number], [place], [address]. [place], tel: tel: [phone] , [place]. tel: [phone] Brock Parn[place] Suprvsn of preg w Dec-2 Nj Referring In Womens history of ect or 0-201 Gabbi. Provider: Fili CHUA, molar preg, first [address], PO Box tri Medical [address], Center [facility] Dr Alyssia, [facility] [place], [place], 120, [place], , [place], [address]. [place], tel: tel: [phone] , [place]. tel: [phone] Brock Parn[place] Personal history Dec-1 Nj In Womens of comp of preg, 1-201 Gabbi. Fili CHUA, rick and the 7 700 PO Box puerp Medical [address], [place] [address], [facility], 120, [id number], [place], [place], tel: [phone] , [place]. tel: [phone] Brock Parnell MittelschmerzEnco Aug-2 Nj Referring In Womens unter for oth 9-201 Gabbi. Provider: Fili CHUA, general cnsl and [address], PO Box advice on Medical [address], procreation [facility] [address], [facility] [place], [place], 120, [place], [id number], [place], [address]. [place], tel:+ tel:+ [phone] , [place]. tel: [phone] [facility] Pelvic and Sep-2 Nj In Womens perineal pain 1-201 Gabbi. Fili CHUA, 7 700 [address] Box Medical [address], [place] [address], [facility], 120, , [facility] [place], tel:[phone] , [place]. tel: [phone] [facility] Personal history Joshua-1 Curiel Referring In Womens of comp of preg, 5-201 Luz. Provider: Fili CHUA, rick and the [address], PO Box puerp Medical [address], Center [address], [facility] [place], [place], 120, [place], [id number], [place], [address]. [place], tel: tel:[phone] , [place]. tel: [phone] [facility] Unspec ectopic May-2 Curiel In Womens preg w/out 3-201 Luz. Fili CHUA, intrauterine preg 7 700 PO Box Medical [address], [place] [address], [facility], 120, [id number], [place], [place], tel:+ [phone] , [place]. tel: [phone] [facility] Unspec ectopic May-1 Curiel In Womens preg w/out 7-201 Luz. Fili CHUA, intrauterine preg 7 700 PO Box Medical [address]22, Center Dr Alyssia, [facility], 120, [id number], [place], [place], tel:[phone] , [place]. tel: [phone] [facility] Encounter for May-0 Curiel Referring In Womens test, 9-201 Luz. Provider: Fili CHUA, result unknown [address], PO Box Medical [address], [facility] [address], [place], [place], 120, [place], [id number], [place], [address]. [place], tel:+ tel:+ [phone] , [place]. tel: [phone] [facility] Unspec ectopic May-0 Curiel In Womens preg w/out 9-201 Luz. Health HARSHIL, intrauterine preg 7 700 PO Box Medical [address]22, Center Dr Alyssia, [facility], 120, [id number], [place], [place], tel: [phone] , [place]. tel: [phone] [facility] Unspec ectopic May-0 Curiel Referring In Womens preg w/out 4-201 Luz. Provider: Fili CHUA, intrauterine preg [address], PO Box Medical [address], [facility] [address] [address], [place], [place], 120, [place], , [place], [address]. [place], tel:+ tel: [phone] , [place]. tel: [phone] [facility] Unspec ectopic May-0 Curiel Referring In Womens preg w/out 1-201 Luz. Provider: Fili CHUA, intrauterine [address], PO Box preg Medical [address], state, incidental [facility] [address] Alyssia, [place], [place], 120, [place], , [place], [address]. [place], tel:+ tel: [phone] , [place]. tel: [phone] [facility] Threatened May-0 Curiel Referring In Womens Ultrasound abortionLower 1-201 Luz. Provider: Fili CHUA, abdominal pain, [address], PO Box unspecified Medical [address], [facility] [address] [address], [facility] [place], [place], 120, [place], [id number], [place], [address]. [place], tel: tel: [phone] , [place]. tel: [phone] [facility] Lower abdominal Apr-2 Curiel In Womens pain, unspecified 8-201 Luz. Health HARSHIL, 7 700 PO Box Medical 1522, Center Dr Alyssia, [facility], 120, [id number], [place], [place], tel: [phone] , [place]. tel: [phone] [facility] Threatened Apr-2 Curiel Referring In Womens 7-201 Luz. Provider: Fili CHUA, [address], PO Box Medical [address], [address], [place], [place], 120, [place], , [place], [address]. [place], tel: tel:[phone] , [place]. tel: [phone] [facility] Irregular Apr-2 Curiel Referring In Womens MensesThreatened 5-201 Luz. Provider: Fili CHUA, abortionLower 7 [address], PO Box abdominal pain, Medical [address], unspecified [facility] [address] Alyss[address], [place], [place], 120, [place], [id number], [place], [address]. [place], tel: tel: [phone] , [place]. tel: [phone] [facility] Other specified Nov-1 Curiel Referring In Womens hypothyroidism 4-201 Luz. Provider: Fili CHUA, [address], PO Box Medical [address], [address], [place], [place], 120, [place], , [place], [address]. [place], tel: tel: [phone] , [place]. tel: [phone] [facility] Other specified Oct-2 Curiel In Womens hypothyroidism 7-201 Luz. Health HARSHIL, 6 700 PO Box Medical 1522, Center Dr Alyssia, [facility] [place], 120, [id number], [place], [place], tel: [phone] , [place]. 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 Provider: Fili CHUA, (routine) w/o abn 6 [address], PO Box [facility] Medical [address], Center [facility] Dr Alyssia, [place], [place], 120, [place], [id number], [place], [address]. [place], tel: tel: [phone] , [place]. tel: [phone] Brock Parn[place] Dec-2 Holdeman Referring In Womens 2-201 Tamera. Provider: Fili CHUA, [address], PO Box Medical [address], Center [facility] Dr Alyssia, [place], [place], 120, [place], [id number], [place], [address]. [place], tel: tel:[phone] , [place]. tel: [phone] Brock Parn[place] Oct-2 [place] Referring In Womens 0-201 Tamera. Provider: Fili CHUA, 4 700 [place] PO Box Medical [place] 1522, Center S, [address], [facility], 120, [place] [id number], [facility], [place], tel:[phone] [place], , [place]. [id number]. tel: tel: [phone] Brock Parnell Sep-1 Holdeman Referring In Womens 9-201 Tamera. Provider: Fili CHUA, 4 700 [place] PO Box Medical [place] [address], Center S, [address]lyss[address], [facility], 120, [place] [id number], [place], [facility] 120, [place], tel:[phone] [place], , [place]. [id number]. tel: tel: [phone] Brock Parnell Marc In Womens 1-201 Tamera. [facility], 4 700 PO [facility] [address], [place] [address], [facility] [place], 120, [id number], [place], [place], tel:[phone] , [place]. tel: [phone] Family History Family Member Diagnosis Age At [...] name Insurance type Covered libertarian ID Authorization(s) [facility] [id number] [facility] [id number] [facility] [id number] [facility] [id number] Social History Type Description Quantity Date Captured Alcohol Use Details No Caffeine Use Details Unknown Tobacco Use Status Unknown Smoking Status Never smoker Vital Signs Date / Height Weight BMI Pulse Blood Temperature Respiratory Body Head BMI Time: Rate Pressure Rate Surface Circumference percentile Area 172.30 29.5 110/69 2018 lbs 7 mm[Hg] 10:43 kg/m AM eter (2) Chief Complaint And [...] Complete OB Ultrasound > 14 Weeks Ordered ([id number]) Future Order: Radiology Order Ultrasound OB Follow-up ([id number]) Ordered Future Order: Lab Order hCG,Beta Subunit, Qnt, Serum Ordered ([id number]) Date Type Problem Goal Intervention Status Start [...]
--- OUTSIDE RECORDS SUMMARY | 2017-10-08 05:25 | External Medical Summary | Continuity of Care Document ---
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 Provider: Health PA, , third 8 700 Mir[address]AN[address]ON[address] Vanessa Box [email or web address] weeks Medical [address], gestation of [facility] [place], Dr, Reji Blanton [place], 120, [place], [id number], [place], [address]. [place], tel: tel: [phone] , [place]. tel: [phone] Brock [place] Encounter for Joshua-1 Nj Referring In Womens suprvsn of normal 2-201 Gabbi. Provider: Health PA, , third [address], PO Box [id number] weeks Medical [address], gestation of [facility] [place], [place], [place], [place], [id number], [place], [address]. [place], tel:+ tel: [phone] , [place]. tel: [phone] Brock [place] May-2 Nj In Womens 5-201 Gabbi. Health PA, 8 700 PO Box Medical 1522, [place], , [facility], 120, [id number], [place], tel: [phone] , [place]. tel: [phone] Brock Benson nutritional May-2 Nj Referring In Womens and metab 4-201 Gabbi. Provider: Health PA, diseases comp [address], PO Box preg, second Medical [address], triEncounter for [facility] [place], suprvsn of normal Reji Chavez [place], , second 120, [place], [id number], [id number] [place], [address]. [place] gestation of [place], tel: tel: [phone] , [place]. tel: [phone] Brock [place] Encounter for May-0 Nj Referring In Womens suprvsn of normal 1-201 Gabbi. Provider: Health PA, , second [address], PO Box [email or web address] weeks Medical [address], gestation of [facility] [place], Reji Chavez, [place], 120, [place], [id number], [place], [address]. [place], tel: tel: [phone] , [place]. tel: [phone] [facility] [place] Endo, nutritional Apr-0 Nj Referring In Womens and metab 4-201 Gabbi. Provider: Health HARSHIL, diseases comp [address], PO Box preg, second Medical [address], triEncounter for [facility] [place], suprvsn of normal Reji Chavez [place], , second 120, [place], [id number], [email or web address] [place], [address]. [place] gestation of [place], tel:+ tel:[phone] , [place]. tel: [phone] [facility] [place] Maternal care for Apr-0 Nj Referring In Womens Ultrasound excess 4-201 Gabbi. Provider: Health HARSHIL, growth, second [address], PO Box tri, unspEndo, Medical [address], nutritional and [facility] [place], metab diseases Reji Chavez [place], comp preg, second 120, [place], [id number], tri20 [place], [address]. [place] gestation of [place], tel:+ tel:+ [phone] , [place]. tel: [phone] [facility] Acute upper Mar-0 Nj Referring In Womens respiratory 5-201 Gabbi. Provider: Health HARSHIL, infection, [address], PO Box unspecifiedEncoun Medical [address], ter for suprvsn [facility] [place], of normal Reji Chavez [place], , second 120, [place], [id number], [place], [address]. [place] gestation of [place], tel:+ tel:[phone] , [place]. tel: [phone] [facility] Maternal care for Feb-2 Nj Referring In Womens excess 6-201 Gabbi. Provider: Health HARSHIL, growth, second [address], PO Box tri, [email or web address] weeks Medical [address], gestation of [facility] [place], Reji Chavez [place], 120, [place], [id number], [place], [address]. [place], tel:+ tel: [phone] , [place]. tel: [phone] Brock [place] Encounter for Feb-3 Nj Referring In Womens suprvsn of normal 0-201 Gabbi. Provider: Fili CHUA, , first [address], PO Box [email or web address] weeks Medical [address], gestation of [facility] [place], Reji [place], 120, [place], , [place], [address]. [place], tel:+ tel: [phone] , [place]. tel: [phone] Brock [place] Encounter for Feb-0 Nj Referring In Womens suprvsn of normal 2-201 Gabbi. Provider: Fili CHUA, , first [address], PO Box trimesterLess Medical [address] 15[address], than 8 weeks [facility] [place], [place], 120, [place], , [place], [address]. [place], tel: tel: [phone] , [place]. tel: [phone] Brock [place] Suprvsn of preg w Jan- Nj Referring In Womens history of ect or 0-201 Gabbi. Provider: iFli CHUA, molar preg, first [address], PO Box tri Medical [address], [address] Dr Alyssia, [place], 120, [place], , [place], [address]. [place], tel: tel: [phone] , [place]. tel: [phone] Brock [place] Personal history Dec- Nj In Womens of comp of preg, 1-201 Gabbi. rick Keating and the 7 700 PO Box puerp Medical 1522, [place] Dr Alyssia, [facility], 120, [id number], [place], [place], tel: [phone] , [place]. tel: [phone] Brock Madsenco Sep-2 Nj Referring In Womens unter for oth 9-201 Gabbi. Provider: Fili CHUA, general cnsl and [address], PO Box advice on Medical [address], procreation [facility] Dr Alyssia, [place], [place], 120, [place], [id number], [place], [address]. [place], tel:+ tel:+ [phone] , [place]. tel: [phone] Brock [place] Pelvic and Sep-2 Nj In Womens perineal pain 1-201 Gabbi. Fili CHUA, 7 700 PO Box Medical [address], [place] Dr Alyssia, [facility], 120, , [place], [place], tel:+ [phone] , [place]. tel: [phone] Brock [place] Personal history Joshua-1 Curiel Referring In Womens of comp of preg, 5-201 Luz. Provider: Fili CHUA, rick and the [address], PO Box puerp Medical [address], Center [facility] Dr Alyssia, [place], [place], 120, [place], [id number], [place], [address]. [place], tel:+ tel:+ [phone] , [place]. tel: [phone] Brock [place] Unspec ectopic May-2 Curiel In Womens preg w/out 3-201 Luz. Health HARSHIL, intrauterine preg 7 700 PO Box Medical [address], [place] Dr Alyssia, [facility], 120, [id number], [place], [place], tel:+ [phone] , [place]. tel:[phone] Brock [place] Unspec ectopic May-1 Curiel In Womens preg w/out 7-201 Luz. Fili CHUA, intrauterine preg 7 700 PO Box Medical 1522, [place] Dr Alyssia, [facility], 120, [id number], [place], [place], tel:+ [phone] , [place]. tel: [phone] Brock [place] Encounter for May-0 Curiel Referring In Womens test, 9-201 Luz. Provider: Fili CHUA, result unknown [address], PO Box Medical [address], [address] [address] Alyssia, [facility], [place], 120, [place], [id number], [place], [address]. [place], tel:+ tel:+ [phone] , [place]. tel: [phone] [facility] Unspec ectopic May-0 Curiel In Womens preg w/out 9-201 Luz. Fili CHUA, intrauterine preg 7 700 PO Box Medical [address], [place] Dr Alyssia, [facility], 120, [id number], [place], [place], tel: [phone] , [place]. tel: [phone] [facility] Unspec ectopic May-0 Curiel Referring In Womens preg w/out 4-201 Luz. Provider: Fili CHUA, intrauterine preg [address], PO Box Medical [address], [address] [address] Alyssia, [facility], [place], 120, [place], [id number], [place], [address]. [place], tel: tel: [phone] , [place]. tel: [phone] [facility] Unspec ectopic May-0 Curiel Referring In Womens preg w/out 1-201 Luz. Provider: Fili CHUA, intrauterine [address], PO Box preg Medical [address], state, incidental [facility] [address] Alyssia, [place], [place], 120, [place], [id number], [place], [address]. [place], tel:+ tel: [phone] , [place]. tel: [phone] [facility] Threatened May-0 Curiel Referring In Womens Ultrasound abortionLower 1-201 Luz. Provider: Fili CHUA, abdominal pain, [address], PO Box unspecified Medical [address], [facility] [address] Alyssia, [place], [place], 120, [place], [id number], [place], [address]. [place], tel: tel: [phone] , [place]. tel: [phone] [facility] Lower abdominal Apr-2 Curiel In Womens pain, unspecified 8-201 Luz. Fili CHUA, 7 700 PO Box Medical [address], Center Dr Alyssia, [facility], 120, [id number], [place], [place], tel: [phone] , [place]. tel: [phone] [facility] Threatened Apr-2 Curiel Referring In Womens 7-201 Luz. Provider: Fili CHUA, 7 [address], PO Box Medical [address], [address] Alyssia, [place], [place], 120, [place], , [place], [address]. [place], tel: tel:[phone] , [place]. tel: [phone] [facility] Irregular Apr-2 Curiel Referring In Womens MensesThreatened 5-201 Luz. Provider: Fili CHUA, fernandaLower 7 [address], PO Box abdominal pain, Medical [address], unspecified [facility] [address] [address] Alyssia, [place], [place], 120, [place], , [place], [address]. [place], tel: tel:[phone] , [place]. tel: [phone] [facility] Other specified Nov-1 Curiel Referring In Womens hypothyroidism 4-201 Luz. Provider: Fili CHUA, 6 700 [address], PO Box Medical [address], [address] Alyssia, [place], [place], 120, [place], , [place], [address]. [place], tel:+ tel:[phone] , [place]. tel: [phone] [facility] Other specified Oct-2 Curiel In Womens hypothyroidism 7-201 Luz. Health HARSHIL, 6 700 PO Box Medical [address], Center Dr Alyssia, [facility], 120, [id number], [place], [place], tel: [phone] , [place]. tel: [phone] [facility] Encntr for clothes marker Denilson-1 Curiel Referring In Womens exam (general) 9-201 Luz. Provider: Health HARSHIL, (routine) w/o abn 6 700 [address], PO Box [facility] Medical [address], Center [facility] Dr Alyssia, [place], [place], 120, [place], [id number], [place], [address]. [place], tel:+ tel: [phone] , [place]. tel: [phone] Brock [place] Dec-2 Holdjose c Referring In Womens 2-201 Tamera. Provider: Health HARSHIL, 4 700 [address], PO Box Medical [address], [facility] Dr Alyssia, [place], [place], 120, [place], [id number], [place], [address]. [place], tel: tel:[phone] , [place]. tel: [phone] Brock [place] Oct-2 Holdeman Referring In Womens 0-201 Tamera. Provider: Health HARSHIL, 4 700 Tamera PO Box Medical [place] 1522, Center S, [address] Dr Alyssia, [facility], 120, [place] [id number], [facility], [place], tel: [phone] [place], , [place]. [id number]. tel: tel: [phone] Brock [place] Sep-1 Marc Referring In Womens 9-201 Tamera. Provider: Health HARSHIL, 4 700 Tamera PO Box Medical [place] 1522, Center S, [address] Dr Alyssia, [facility] [place], 120, [place] [id number], [place] [facility] 120, [place], tel:[phone] [place], , [place]. [id number]. tel: tel: [phone] Brock [place] May- Marc In Womens 1-201 Tamera. [facility], 4 700 PO [facility] 1522, [place] Dr Alyssia, [facility], 120, [id number], [place], [place], tel:[phone] , [place]. tel: [phone] Family History Family Member Diagnosis Age At [...] older Payers Payer name Insurance type Covered alliance party ID Authorization(s) [facility] [id number] [facility] [id number] [facility] [id number] [facility] [id number] Social History Type Description Quantity Date Captured Alcohol Use Details No Caffeine Use Details Unknown Tobacco Use Status Unknown Smoking Status Never smoker Vital Signs Date / Height Weight BMI Pulse Blood Temperature Respiratory Body Head BMI Time: Rate Pressure Rate Surface Circumference percentile Area 167.00 28.6 /64 2018 lbs 6 mm[Hg] 11:11 kg/m AM eter (2) Chief Complaint And Reason For Visit Unknown Chief Complaint And Reason For Visit Reason For Referral Reason For Referral Unknown Plan Of Care Date Type Action Status Goal Lifestyle education regarding completed diet Goal Lifestyle education regarding completed diet Goal Lifestyle education regarding completed diet Appointment Francesca Sanders BOOKED Appointment Francesca Sanders BOOKED Future Order: Radiology Order Complete OB Ultrasound > 14 Weeks Ordered ([id number]) Future Order: Lab Order hCG,Beta Subunit, Qnt, Serum Ordered ([id number]) Date Type Problem Goal Intervention Status Start [...]
--- OUTSIDE RECORDS SUMMARY | 2017-10-08 05:25 | External Medical Summary | Continuity of Care Document ---
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) w/o 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 Encounter for suprvsn of normal - , first trimester 10 weeks gestation of - Other specified hypothyroidism Other specified hypothyroidism - Irregular Menses Threatened Lower abdominal pain, unspecified [facility] Encounter for ot general cnsl and advice on procreation Unspec ectopic preg w/out intrauterine preg Unspec ectopic preg w/out intrauterine preg Unspec ectopic preg w/out intrauterine preg Unspec ectopic preg w/out intrauterine preg state, incidental Unspec ectopic preg w/out intrauterine preg Suprvsn of preg w history of ect or molar preg, first tri Threatened - Lower abdominal pain, unspecified - Threatened - Pelvic and perineal pain Lower abdominal pain, unspecified Encounter for test, result unknown Encounter for suprvsn of normal - , first trimester Less than 8 weeks gestation of - Personal history of [...] first [address], PO Box weeks Medical [address], gestation of [facility] [place], [place], 120, [place], [id number], [place], [address]. [place], tel:+ tel: [phone] , [place]. tel: [phone] [facility] [place] Encounter for Nj Referring In Womens suprvsn of normal 2-201 Gabbi. Provider: Fili CHUA, , first [address], PO Box trimesterLess Medical [address] 15[address], than 8 weeks [facility] [place], gestation of [place], 120, [place], [id number], [place], [address]. [place], tel:+ tel: [phone] , [place]. tel: [phone] Brock [place] Suprvsn of preg w Jan- Nj Referring In Womens history of ect or 0-201 Gabbi. Provider: Fili CHUA, molar preg, first [address], PO Box tri Medical [address], [address] [place], 120, [place], [id number], [place], [address]. [place], tel: tel: [phone] , [place]. tel: [phone] Brock [place] Personal history Dec-1 Nj In Womens of comp of preg, 1-201 Gabbi. rick Keating and the 7 700 PO Box puerp Medical 1522, Center Dr Alyssia, [facility], 120, [id number], [place], [place], tel: [phone] , [place]. tel: [phone] [facility] MittelschmerzEnco Aug-2 Nj Referring In Womens unter for oth 9-201 Gabbi. Provider: Fili CHUA, general cnsl and [address], PO Box advice on Medical [address], procreation [facility], [facility] [place], 120, [place], [id number], [place], [address]. [place], tel: [phone] , [place]. tel: [phone] [facility] Pelvic and Aug-2 Nj In Womens perineal pain 1-201 Gabbi. Fili CHUA, 7 700 PO Box Medical [address], [place] [address] Alyssia, [facility], 120, , [facility] [place], tel:[phone] , [place]. tel: [phone] [facility] Personal history Joshua-1 Curiel Referring In Womens of comp of preg, 5-201 Luz. Provider: Fili CHUA, rick and the [address], PO Box puerp Medical [address], [address] [address] Alyssia, [facility] [place], 120, [place], , [place], [address]. [place], tel: tel:[phone] , [place]. tel: [phone] [facility] Unspec ectopic May-2 Curiel In Womens preg w/out 3-201 Luz. Fili CHUA, intrauterine preg 7 700 PO Box Medical 1522, [place] [address] Alyssia, [facility], 120, [id number], [place], [place], tel:[phone] , [place]. tel: [phone] Brock [place] Unspec ectopic May-1 Curiel In Womens preg w/out 7-201 Luz. Health HARSHIL, intrauterine preg 7 700 PO Box Medical [address], Center Dr Alyssia, [facility], 120, [id number], [place], [place], tel:+ [phone] , [place]. tel: [phone] [facility] Encounter for May-0 Curiel Referring In Womens test, 9-201 Luz. Provider: Health HARSHIL, result unknown 7 [address], PO Box Medical [address], [address] Alyssia, [facility], [place], 120, [place], [id number], [place], [address]. [place], tel:+ tel:+ [phone] , [place]. tel:[phone] [facility] Unspec ectopic May-0 Curiel In Womens preg w/out 9-201 Luz. Health HARSHIL, intrauterine preg 7 700 PO Box Medical 1522, [place] [address] Alyssia, [facility], 120, [id number], [place], [place], tel:[phone] , [place]. tel: [phone] [facility] Unspec ectopic May-0 Curiel Referring In Womens preg w/out 4-201 Luz. Provider: Fili CHUA, intrauterine preg 7 [address], PO Box Medical [address], [address] Alyssia, [place], [place], 120, [place], , [place], [address]. [place], tel:+ tel: [phone] , [place]. tel: [phone] [facility] Unspec ectopic May-0 Curiel Referring In Womens preg w/out 1-201 Luz. Provider: Health HARSHIL, intrauterine 7 700 [address], PO Box preg Medical [address], state, incidental [facility] [address] Alyssia, [facility] [place], [place], 120, [place], [id number], [place], [address]. [place], tel:+ tel:[phone] , [place]. tel: [phone] [facility] Threatened May-0 Curiel Referring In Womens Ultrasound abortionLower 1-201 Luz. Provider: Fili CHUA, abdominal pain, [address], PO Box unspecified Medical [address], [address] Alyssia, [place], [place], 120, [place], [id number], [place], [address]. [place], tel:+ tel:+ [phone] , [place]. tel: [phone] [facility] Lower abdominal Apr-2 Curiel In Womens pain, unspecified 8-201 Luz. Health HARSHIL, 7 700 PO Box Medical [address], Center Dr Alyssia, [facility], 120, [id number], [place], [place], tel: [phone] , [place]. tel: [phone] [facility] [place] Threatened Apr-2 Curiel Referring In Womens 7-201 Luz. Provider: Fili CHUA, [address], PO Box Medical [address], [address] Alyssia, [place], [place], 120, [place], , [place], [address]. [place], tel: tel: [phone] , [place]. tel: [phone] [facility] Irregular Apr-2 Curiel Referring In Womens MensesThreatened 5-201 Luz. Provider: Fili CHUA, abortionLower [address], PO Box abdominal pain, Medical [address], unspecified [address] Alyssia, [place], [place], 120, [place], [id number], [place], [address]. [place], tel: tel: [phone] , [place]. tel: [phone] [facility] Other specified Nov-1 Curiel Referring In Womens hypothyroidism 4-201 Luz. Provider: Fili CHUA, [address], PO Box Medical [address], [address] Alyssia, [facility] [place], [place], 120, [place], [id number], [place], [address]. [place], tel:+ tel: [phone] , [place]. tel: [phone] [facility] Other specified Oct-2 Curiel In Womens hypothyroidism 7-201 Luz. Health HARSHIL, 6 700 PO Box Medical [address], Center Dr Alyssia, [facility], 120, [id number], [place], [place], tel: [phone] , [place]. 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 Provider: Health HARSHIL, (routine) w/o abn 6 700 [address] Jacob, PO Box [facility] Medical [address], [place] [address], [place], [place], 120, [place], [id number], [place], [address]. [place], tel: tel: [phone] , [place]. tel: [phone] Brock [place] Dec-2 Holdeman Referring In Womens 2-201 Tamera. Provider: Fili CHUA, 4 700 [address], PO Box Medical [address], [place] [address], [place], [place], 120, [place], [id number], [place], [address]. [place], tel:+ tel:[phone] , [place]. tel: [phone] Brock [place] Oct-2 [place] Referring In Womens 0-201 Tamera. Provider: Health HARSHIL, 4 700 Tamera PO Box Medical [place] 1522, Center S, [address] Dr [address]lyss[address], [facility], 120, [place] [id number], [facility] 120, [place], [place], tel:[phone] [place], , [place]. [id number]. tel: tel: [phone] Brock [place] Sep-1 Holdeman Referring In Womens 9-201 Tamera. Provider: Health HARSHIL, 4 700 Tamera PO Box Medical [place] 1522, Center S, [address] Dr Alyssia, [facility], 120, [place] [id number], [facility] 120, [place], [place], tel:[phone] [place], [id number] , . [id number]. tel: tel:[phone] Brock [place] May-2 Marc In Womens 1-201 Tamera. [facility], 4 700 [facility] 1522, [place] [address] Alyssia, [facility], 120, [id number], [place], [facility], tel:[phone] , . tel: [phone] Family History Family Member Diagnosis Age At Onset Maternal Grandmother Cancer, breast No family history of Colon Cancer No family history of Ovarian Cancer No family history of Venous Thrombosis No family history of Stroke No family history of Uterine Cancer No family history of Pulmonary Embolism No family history of Cardiovascular Disease Immunizations Vaccine Date Status Comments Influenza, seasonal, injectable, completed Source: Other Provider preservative free, 3 yrs or older Tdap completed Source: New Immunization Record Influenza, injectable, completed Source: New Immunization Record quadrivalent, preservative free, 3 yrs or older Payers Payer name Insurance type Covered democrat ID Authorization(s) [facility] [id number] [facility] [id number] [facility] [id number] Social History Type Description Quantity Date Captured Alcohol Use Details No Caffeine Use Details Unknown Tobacco Use Status Unknown Smoking Status Never smoker Vital Signs Date / Height Weight BMI Pulse Blood Temperature Respiratory Body Head BMI Time: Rate Pressure Rate Surface Circumference percentile Area 153.30 26.3 125/74 2018 lbs 1 mm[Hg] 4:21 kg/m PM eter (2) Chief Complaint And Reason For Visit Unknown Chief Complaint And Reason For Visit Reason For Referral Reason For Referral Unknown Plan Of Care Date Type Action Status Goal Lifestyle education regarding diet completed Goal Lifestyle education regarding diet completed Goal Lifestyle education regarding diet completed Appointment Francesca Sanders BOOKED Future Order: Lab Order Pap Smear With HPV Reflex If ASCUS Ordered ([id number]), Collected on: Future Order: Lab Order hCG,Beta Subunit, Qnt, Serum ([id number]) Ordered Date Type Problem Goal Intervention Status Start Date Unknown. History Of Present Illness Encounter Date Complaint History Of Present Illness This patient has no known history of present illness Functional Status Encounter Date Functional Assessment Cognitive Assessment Unknown Medications Administered Medication Instructions Dosage Effective Dates (start - stop) Status Comments Drug Treatment Unknown Instructions Date Instruction Additional Information nutrition and weight gain counseling, special diet [...]
--- OUTSIDE RECORDS SUMMARY | 2017-10-08 05:25 | External Medical Summary | Continuity of Care Document ---
:1985 Author Organization [facility] Address [address] [place], [place] [id number] Phone Care Team Providers Name Role Phone Amirah Adams DO Unavailable Unavailable Allergies, Adverse Reactions, Alerts Substance Reaction Severity Status No Known Drug Allergies Unknown Active Medications Medication Instructions Dosage Effective Dates Status Comments (start - stop) Vitamin take 1 tablet by Not Available - Active tablet oral route every day Vitamin B-6 100 mg - Active tablet Mucinex D 60 take 1 tablet by Not Available - Active mg-600 mg oral route every 12 tablet,extended hours as needed release Problems Condition Effective Dates (start - stop) Clinical Status 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) - (routine) w/o 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 Encounter for suprvsn of normal - , first trimester 10 weeks gestation of - Acute upper respiratory infection, - unspecified Encounter for suprvsn of normal - , second trimester 15 weeks gestation of - Other specified hypothyroidism Other specified hypothyroidism - Irregular Menses Threatened Lower abdominal pain, unspecified Mittelschmerz Encounter for oth general cnsl and advice [...] tri, unsp 14 weeks gestation of - Pelvic and perineal [...] LLQ - Active Active Procedures Procedure Date Unknown Results Test Name Date and Time Measure Units Reference Range Abnormal Flag Comments Unknown Advance Directives Directive Yes / No Effective Date File Name Unknown Encounters Encounter Practice Location Reason(s) Diagnoses Date Provider Care Team Description For Visit Members Brock [place] Acute upper Apr-0 Nj Referring In Womens respiratory 5-201 Gabbi. Provider: Fili CHUA, infection, [address], [address] unspecifiedEncoun Medical [address], ter for suprvsn [facility] [place], [place], , second 120, [place], [id number], [place], [address]. [place] gestation of [place], tel: tel: [phone] , [place]. tel: [phone] Brock Parn[place] Maternal care for Mar-2 Nj Referring In Womens excess 6-201 Gabbi. Provider: Fili CHUA, growth, second [address], PO Box tri, unsp14 weeks Medical [address], gestation of [facility] [place], [place], 120, [place], [id number], [place], [address]. [place], tel: tel: [phone] , [place]. tel: [phone] Brock P[place] Feb-1 Nj In Womens 5-201 Gabbi. Fili CHUA, 8 700 [address] Medical [address], [place], Dr [facility], 120, [id number], [place], tel: [phone] , [place]. tel: [phone] Brock [place] Encounter for Feb-3 Nj Referring In Womens suprvsn of normal 0-201 Gabbi. Provider: Fili CHUA, , first [address], PO Box [id number] weeks Medical [address], gestation of [facility] [place], , [place], 120, [place], [id number], [place], [address]. [place], tel: tel:[phone] , [place]. tel: [phone] Brock [place] Encounter for Feb-0 Nj Referring In Womens suprvsn of normal 2-201 Gabbi. Provider: Fili CHUA, , first [address], PO Box trimesterLess Medical [address], than 8 weeks [facility] [place], gestation [place], 120, [place], , [place], [address]. [place], tel: tel:[phone] , [place]. tel: [phone] Brock [place] Suprvsn of preg w Jan- Nj Referring In Womens history of ect or 0-201 Gabbi. Provider: Fili CHUA, molar preg, first [address], PO Box tri Medical [address], Center [facility] Dr Alyssia, [place], 120, [place], , [place], [address]. [place], tel: tel:[phone] , [place]. tel: [phone] Brock [place] Personal history Dec-1 Nj In Womens of comp of preg, 1-201 Gabbi. Fili CHUA, rick and the 7 700 [address] puerp Medical [address], [place] [address]lyss[address], [facility], 120, [id number], [place], [place], tel: [phone] , [place]. tel: [phone] Brock Parnell MittelschmerzEnco Sep-2 Nj Referring In Womens unter for oth 9-201 Gabbi. Provider: Fili CHUA, general cnsl and [address], PO Box advice on Medical [address], procreation [address], [facility], [place], 120, [place], [id number], [place], [address]. [place], tel:+ tel:+ [phone] , [place]. tel: [phone] [facility] [place] Pelvic and Aug-2 Nj In Womens perineal pain Gabbi. Fili CHUA, 7 700 [address] Medical [address], Center Dr Alyssia, [facility], 120, , [place], [place], tel: [phone] , [place]. tel: [phone] [facility] [place] Personal history Joshua-1 Curiel Referring In Womens of comp of preg, - Luz. Provider: Fili CHUA, rick and the [address], PO Box puerp Medical [address], Center [address], [facility], [place], 120, [place], [id number], [place], [address]. [place], tel: tel: [phone] , [place]. tel: [phone] [facility] [place] Unspec ectopic May-2 Curiel In Womens preg w/out 3-201 Luz. Fili CHUA, intrauterine preg 7 700 [address] Medical [address], [address], [facility], 120, , [place], [place], tel:+ [phone] , [place]. tel: [phone] [facility] [place] Unspec ectopic May-1 Curiel In Womens preg w/out - Luz. Fili CHUA, intrauterine preg 7 700 [address] Medical [address], [address], [facility], 120, [id number], [place], [place], tel:+ [phone] , [place]. tel: [phone] Brock [place] Encounter for May-0 Curiel Referring In Womens test, -201 Luz. Provider: Health HARSHIL, result unknown [address], PO Box Medical [address], [address] Alyssia, [place], [place], 120, [place], [id number], [place], [address]. [place], tel:+ tel:+ [phone] , [place]. tel: [phone] [facility] [place] Unspec ectopic May-0 Curiel In Womens preg w/out 9-201 Luz. Health [place], intrauterine preg 7 700 PO Box Medical [address], Center Dr Alyssia, [facility], 120, [id number], [place], tel: [phone] , [place]. tel: [phone] [facility] [place] Unspec ectopic May-0 Curiel Referring In Womens preg w/out 4-201 Luz. Provider: Fili CHUA, intrauterine preg [address], PO Box Medical [address], Center [address] Alyssia, [facility] [place], [place], 120, [place], , [place], [address]. [place], tel:+ tel: [phone] , [place]. tel: [phone] [facility] [place] Unspec ectopic May-0 Curiel Referring In Womens preg w/out 1-201 Luz. Provider: Fili CHUA, intrauterine [address], PO Box preg Medical [address], state, incidental [facility] [address] Alyssia, [place], [place], 120, [place], , [place], [address]. [place], tel:+ tel: [phone] , [place]. tel: [phone] [facility] [place] Threatened May-0 Curiel Referring In Womens Ultrasound abortionLower 1-201 Luz. Provider: Fili CHUA, abdominal pain, [address], PO Box unspecified Medical [address], [address] Alyssia, [place], 120, [place], , [place], [address]. [place], tel:+ tel:+ [phone] , [place]. tel: [phone] [facility] [place] Lower abdominal Apr-2 Curiel In Womens pain, unspecified 8-201 Luz. Health HARSHIL, 7 700 [address] Medical [address], Center Dr Alyssia, [facility], 120, [id number], [place], [place], tel:+ [phone] , [place]. tel: [phone] [facility] [place] Threatened Apr-2 Curiel Referring In Womens 7-201 Luz. Provider: Fili CHUA, [address], PO Box Medical [address], [address] Alyssia, [place], [place], 120, [place], , [place], [address]. [place], tel:+ tel: [phone] , [place]. tel: [phone] [facility] Irregular Apr-2 Curiel Referring In Womens MensesThreatened 5-201 Luz. Provider: Fili CUHA, abortionLower [address], PO Box abdominal pain, Medical [address], unspecified [address] Alyssia, [place], [place], 120, [place], [id number], [place], [address]. [place], tel:+ tel: [phone] , [place]. tel: [phone] [facility] [place] Other specified Nov-1 Curiel Referring In Womens hypothyroidism 4-201 Luz. Provider: Fili CHUA, [address], PO Box Medical [address], [address] Alyssia, [place], [place], 120, [place], , [place], [address]. [place], tel:+ tel:+ [phone] , [place]. tel: [phone] [facility] [place] Other specified Oct-2 Curiel In Womens hypothyroidism 7-201 Luz. Fili CHUA, 6 700 [address] Medical [address], [address], [place], 120, [id number], [place], [place], tel: [phone] , [place]. tel: [phone] Brock [place] Encntr for adjuster and inspector Denilson-1 Curiel Referring In Womens exam (general) 9-201 Luz. Provider: Health HARSHIL, (routine) w/o abn [address], PO Box [facility] Medical [address], [address]lyssia, [place], [place], 120, [place], [id number], [place], [address]. [place], tel:+ tel: [phone] , [place]. tel: [phone] Brock Parn[place] Dec-2 [place] Referring In Womens 2-201 Tamera. Provider: Fili CHUA, [address], PO Box Medical [address], [address]lyssia, [place], [place], 120, [place], [id number], [place], [address]. [place], tel: tel:[phone] , [place]. tel: [phone] Brock P[place] Oct-2 [place] Referring In Womens 0-201 Tamera. Provider: Fili CHUA, 4 700 [place] PO Box Medical [place] 1522, Center S, [address], [facility], 120, [place] [id number], [facility] 120, [place], tel:[phone] [place], , [place]. [id number]. tel: tel: [phone] Brock Parnell Sep-1 [place] Referring In Womens 9-201 Tamera. Provider: Fili CHUA, 4 700 [place] PO Box Medical [place] 1522, Center S, [address]lyss[address], [facility], 120, [place] [id number], [facility] 120, [place], tel: [phone] [place], , [place]. [id number]. tel: tel: [phone] Brock [place] Apr-2 [place] In Womens 1-201 Tamera. Health [place], 4 700 PO [facility] 1522, [place] [address], [facility] [place], 120, [id number], [place], [place], tel:[phone] , [place]. tel: [phone] Family History Family Member Diagnosis Age At [...] name Insurance type Covered libertarian ID Authorization(s) [facility] [id number] [facility] [id number] [facility] [id number] Social History Type Description Quantity Date Captured [...] Order: Lab Order hCG,Beta Subunit, Qnt, Serum ([id number]) Ordered Date Type Problem Goal Intervention Status [...]
--- OUTSIDE RECORDS SUMMARY | 2017-10-08 05:25 | External Medical Summary | Continuity of Care Document ---
:1985 Author Organization [facility] Address [address] [place], [place] [id number] Phone Care Team Providers Name Role Phone Amirah Adams DO Unavailable Unavailable Allergies, Adverse Reactions, Alerts Substance Reaction Severity Status No Known Drug Allergies Unknown Active Medications Medication Instructions Dosage Effective Dates Status Comments (start - stop) Vitamin take 1 tablet by Not Available - Active tablet oral route every day Mucinex D 60 take 1 tablet by Not Available - Active mg-600 mg oral route every 12 tablet,extended hours as needed release Problems Condition Effective Dates (start - stop) Clinical Status 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) - (routine) w/o 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 Endo, nutritional and metab diseases - comp preg, second tri Encounter for suprvsn of normal - , second trimester 20 weeks gestation of - Acute upper respiratory infection, - unspecified Encounter for suprvsn of normal - , second trimester 15 weeks gestation of - Other specified hypothyroidism Other specified hypothyroidism - Irregular Menses Threatened Lower abdominal pain, unspecified Mittelsdebbiez Encounter for oth general cnsl and advice [...] first trimester 10 weeks gestation of - Personal history of comp of preg, chldbrth and the puerp Personal history of comp of preg, chldbrth and the puerp Hypothroidism, Unspecified - Active Abdominal Pain LLQ - Active Active Procedures Procedure Date 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 Provider: Fili CHUA diseases comp [address], PO Box preg, second Medical [address], triEncounter for [facility] [place], suprvsn of normal Reji Ch[place], , second 120, [place], , [id number] [place], [address]. [place] gestation of [place], tel: tel: [phone] , [place]. tel: [phone] Brock [place] Maternal care for Apr-0 Nj Referring In Womens Ultrasound excess 4-201 Gabbi. Provider: Fili CHUA growth, second [address], PO Box tri, unspEndo, Medical [address], nutritional and [facility] [place], metab diseases [place], comp preg, second 120, [place], [id number], tri20 [place], [address]. [place] gestation of [place], tel:+ tel: [phone] , [place]. tel: [phone] Brock P[place] Acute upper Mar-0 Nj Referring In Womens respiratory 5-201 Gabbi. Provider: Fili CHUA, infection, [address], PO Box unspecifiedEncoun Medical [address], ter for suprvsn [facility] [place], of normal Reji Ch[place], , second 120, [place], [id number], [id number] [place], [address]. [place] gestation of [place], tel:+ tel: [phone] , [place]. tel: [phone] Brock Parn[place] Maternal care for Feb-2 Nj Referring In Womens excess 6-201 Gabbi. Provider: Fili CHUA, growth, second [address], PO Box tri, unsp14 weeks Medical [address], gestation of [facility] [place], Reji Chavez [place], 120, [place], [id number], [place], [address]. [place], tel:+ tel: [phone] , [place]. tel: [phone] Brock [place] Encounter for Regino-3 Nj Referring In Womens suprvsn of normal 0-201 Gabbi. Provider: Fili CHUA, , first [address], PO Box [id number] weeks Medical [address], gestation of [facility] [place], Reji Chavez [place], 120, [place], [id number], [place], [address]. [place], tel:+ tel: [phone] , [place]. tel: [phone] Brock [place] Encounter for Regino-0 Nj Referring In Womens suprvsn of normal 2-201 Gabbi. Provider: Fili CHUA, , first [address], PO Box trimesterLess Medical [address], than 8 weeks [facility] [place], gestation of Reji Chavez [place], 120, [place], , [place], [address]. [place], tel: tel: [phone] , [place]. tel: [phone] [facility] Suprvsn of preg w Dec-2 Nj Referring In Womens history of ect or 0-201 Gabbi. Provider: Fili CHUA, molar preg, first [address], PO Box tri Medical [address], [address] Alyssia, [place], [place], 120, [place], , [place], [address]. [place], tel:+ tel:[phone] , [place]. tel: [phone] [facility] [place] Personal history Dec-1 Nj In Womens of comp of preg, 1-201 Gabbi. Fili CHUA, rick and the 7 700 PO Box puer Medical [address], [address], [facility], 120, , [place], [place], tel:[phone] , [place]. tel: [phone] [facility] [place] MittelschmerzEnco Aug-2 Nj Referring In Womens unter for oth 9-201 Gabbi. Provider: Fili CHUA, cnsl and [address], PO Box advice on Medical [address], procreation [facility] [address] [address] Alyssia, [facility] [place], 120, [place], , [place], [address]. [place], tel: tel: [phone] , [place]. tel: [phone] [facility] Pelvic and Aug-2 Nj In Womens perineal pain 1-201 Gabbi. Fili CHUA, 7 700 [address] Box Medical [address], [place] [address], [facility], 120, , [place], [place], tel:+ [phone] , [place]. tel: [phone] [facility] [place] Personal history Joshua-1 Curiel Referring In Womens of comp of preg, 5-201 Luz. Provider: Fili CHUA rick and the [address], PO Box [facility] Medical [address], [address] Alyssia, [place], [place], 120, [place], [id number], [place], [address]. [place], tel:+ tel:+ [phone] , [place]. tel: [phone] [facility] [place] Unspec ectopic May-2 Curiel In Womens preg w/out 3-201 Luz. Fili CHUA, intrauterine preg 7 700 PO Box Medical [address], Center Dr Alyssia, [facility], 120, [id number], [facility] [place], tel:+ [phone] , [place]. tel: [phone] [facility] [place] Unspec ectopic May-1 Curiel In Womens preg w/out 7-201 Luz. Fili CHUA, intrauterine preg 7 700 PO Box Medical [address], Center Dr Alyssia, [facility], 120, [id number], [place], [place], tel:+ [phone] , [place]. tel: [phone] [facility] [place] Encounter for May-0 Curiel Referring In Womens test, 9-201 Luz. Provider: Fili CHUA, result unknown [address], PO Box Medical [address], [address], [facility] [place], 120, [place], [id number], [place], [address]. [place], tel: tel: [phone] , [place]. tel: [phone] [facility] Unspec ectopic May-0 Curiel In Womens preg w/out 9-201 Luz. Fili CHUA, intrauterine preg 7 700 PO Box Medical [address], [address], [facility], 120, [id number], [place], [place], tel:+ [phone] , [place]. tel: [phone] [facility] Unspec ectopic May-0 Curiel Referring In Womens preg w/out 4-201 Luz. Provider: Health [place], intrauterine preg [address], PO Box Medical [address], [address]lyssia, [place], [place], 120, [place], [id number], [place], [address]. [place], tel: tel: [phone] , [place]. tel: [phone] [facility] [place] Unspec ectopic May-0 Curiel Referring In Womens preg w/out 1-201 Luz. Provider: Health HARSHIL, intrauterine [address], PO Box preg Medical [address], state, incidental Center [address] Alyssia, [place], [place], 120, [place], , [place], [address]. [place], tel: tel: [phone] , [place]. tel: [phone] [facility] Threatened May-0 Curiel Referring In Womens Ultrasound abortionLower 1-201 Luz. Provider: Fili CHUA, abdominal pain, [address], PO Box unspecified Medical [address], [address]lyss[address], [place], [place], 120, [place], , [place], [address]. [place], tel: tel: [phone] , [place]. tel: [phone] [facility] Lower abdominal Apr-2 Curiel In Womens pain, unspecified 8-201 Luz. Health HARSHIL, 7 700 PO Box Medical [address], [address], [facility], 120, [id number], [place], [place], tel: [phone] , [place]. tel: [phone] [facility] Threatened Apr-2 Curiel Referring In Womens 7-201 Luz. Provider: Fili CHUA, [address], PO Box Medical [address], [address] Alyssia, [facility] [place], [place], 120, [place], [id number], [place], [address]. [place], tel: tel: [phone] , [place]. tel: [phone] Brock [place] Irregular Apr-2 Curiel Referring In Womens MensesThreatened 5-201 Luz. Provider: Fili CHUA, abortionLower 7 [address], PO Box abdominal pain, Medical [address], unspecified [address] Alyss[address], [place], [place], 120, [place], [id number], [place], [address]. [place], tel: tel: [phone] , [place]. tel: [phone] [facility] Other specified Nov-1 Curiel Referring In Womens hypothyroidism 4-201 Luz. Provider: Fili CHUA, [address], PO Box Medical [address], [address]lyssia, [place], [place], 120, [place], [id number], [place], [address]. [place], tel: tel:[phone] , [place]. tel: [phone] Brock [place] Other specified Oct-2 Curiel In Womens hypothyroidism 7-201 Luz. Fili CHUA, 6 700 PO [facility] [address], [address], [facility], 120, [id number], [place], [place], tel: [phone] , [place]. 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 Provider: Fili CHUA, (routine) w/o abn [address], PO Box findings Medical [address], [address]lyssia, [place], [place], 120, [place], [id number], [place], [address]. [place], tel: tel:[phone] , [place]. tel: [phone] Brock [place] Dec-2 [place] Referring In Womens 2-201 Tamera. Provider: Fili CHUA, [address], PO Box Medical [address], [address]lyssia, [place], [place], 120, [place], [id number], [place], [address]. [place], tel: tel: [phone] , [place]. tel: [phone] Brock [place] Nov-2 [place] Referring In Womens 0-201 Tamera. Provider: Health [place], 4 700 [place] PO Box Medical [place] 1522, Center S, [address], [facility] [place], 120, [place] [id number], [facility] 120, [place], [place], tel:+ [phone] [place], , . [id number]. tel: tel: [phone] Brock [place] Oct- [place] Referring In Womens 9-201 Tamera. Provider: Health [place], 4 700 [place] PO Box Medical [place] [address], [facility], [facility] Dr Alyssia, [facility], 120, [place] [id number], [facility] 120, [place], [place], tel: [phone] [place], , [place]. [id number]. tel: tel: [phone] Brock [place] May-2 [place] In Womens 1-201 Tamera. Health [place], 4 700 Box Medical [address], [address], [facility] [place], 120, [id number], [place], [place], tel: [phone] , [place]. tel: [phone] Family History Family Member Diagnosis Age At [...] name Insurance type Covered republican ID Authorization(s) [employer] [place] BL [id number] [facility] [id number] [facility] [id number] Social History Type Description Quantity Date Captured Alcohol Use Details No Caffeine Use Details Unknown Tobacco Use Status Unknown Smoking Status Never smoker Vital Signs Date / Height Weight BMI Pulse Blood Temperature Respiratory Body Head BMI Time: Rate Pressure Rate Surface Circumference percentile Area 156.20 26.8 110/74 -2018 lbs 1 mm[Hg] 4:15 kg/m PM eter (2) Chief Complaint And [...] Complete OB Ultrasound > 14 Weeks Ordered ([id number]) Future Order: Lab Order hCG,Beta Subunit, Qnt, Serum Ordered ([id number]) Date Type Problem Goal Intervention Status Start [...] routine tests risk factors identified by history Regino-02-2018 anticipated course of care Zika virus assessment [...]
--- OUTSIDE RECORDS SUMMARY | 2017-10-08 05:25 | External Medical Summary | Continuity of Care Document ---
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) w/o 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 [facility] Encounter for oth general cnsl and advice on procreation Other specified hypothyroidism Other specified hypothyroidism - Irregular Menses Threatened Lower abdominal pain, unspecified Unspec ectopic preg w/out intrauterine preg Threatened - Lower abdominal pain, unspecified Threatened - Lower abdominal pain, unspecified - Unspec ectopic preg w/out intrauterine preg state, incidental Unspec ectopic preg w/out intrauterine preg Unspec ectopic preg w/out intrauterine preg Unspec ectopic preg w/out intrauterine preg Pelvic and perineal pain Encounter for test, result unknown Personal history of comp of preg, chldbrth and the puerp Hypothroidism, Unspecified - Active Abdominal Pain LLQ - Active Active Procedures Procedure Date Office/outpatient visit,est, mod Results Test Name Date and Time Measure Units Reference Range Abnormal Flag Comments Unknown Advance Directives Directive Yes / No Effective Date File Name Unknown Encounters Encounter Practice Location Reason(s) Diagnoses Date Provider Care Team Description For Visit Members Office/outpa Brock [place] LLQ pain MittelschmerzEnco Sep-2 [place] Referring tient In Womens (chief unter for oth 9-201 Gabbi. Provider: visit,est, Health HARSHIL, complaint) general cnsl and [address], mod PO Box advice on Medical [address], procreation [facility] Dr Alyssia, [facility] [place], [address], [place], [id number], [place], [address]. [place], tel: tel: [phone] , [place]. tel: [phone] [facility] Pelvic and Sep-2 Nj In Womens perineal pain -201 Gabbi. [facility], [address], [place] [address], [facility], 120, , [facility] [place], tel:[phone] , [place]. tel: [phone] [facility] [place] Personal history Joshua-1 Curiel Referring In Womens of comp of preg, 5-201 Luz. Provider: Health HARSHIL, rick and the [address], PO Box puerp Medical [address], Center [facility] [address] Alyssia, [place], [place], [address], [place], , [place], [address]. [place], tel: [phone] , [place]. tel: [phone] [facility] [place] Unspec ectopic May-2 Curiel In Womens preg w/out 3-201 Luz. Health [place], intrauterine preg 7 700 [address], [place] [address], [facility] [place], 120, [id number], [place], [place], tel: [phone] , [place]. tel: [phone] [facility] [place] Unspec ectopic May-1 Curiel In Womens preg w/out 7-201 Luz. Health [place], intrauterine preg 7 700 [address], [place] [address], [facility], 120, , [place], [place], tel: [phone] , [place]. tel: [phone] [facility] [place] Encounter for May-0 Curiel Referring In Womens test, 9-201 Luz. Provider: Fili CHUA, result unknown [address], PO [address] Medical [address], [address], [place], [place], [address], [place], [id number], [place], [address]. [place], tel: tel: [phone] , [place]. tel: [phone] [facility] [place] Unspec ectopic May-0 Curiel In Womens preg w/out 9-201 Luz. Fili CHUA, intrauterine preg 7 700 [address], [address]lyssia, [facility], 120, [id number], [place], [place], tel: [phone] , [place]. tel: [phone] [facility] [place] Unspec ectopic May-0 Curiel Referring In Womens preg w/out 4-201 Luz. Provider: Fili CHUA, intrauterine preg [address], PO Box Medical [address], [address], [place], [place], [address], [place], [id number], [place], [address]. [place], tel: tel: [phone] , [place]. tel: [phone] [facility] [place] Unspec ectopic May-0 Curiel Referring In Womens preg w/out 1-201 Luz. Provider: Fili CHUA, intrauterine [address], PO Box preg Medical [address], state, incidental [address]lyssia, [place], [place], [address], [place], [id number], [place], [address]. [place], tel: tel: [phone] , [place]. tel: [phone] [facility] [place] Threatened May-0 Curiel Referring In Womens Ultrasound abortionLower 1-201 Luz. Provider: Fili CHUA, abdominal pain, [address], PO Box unspecified Medical [address], [address], [place], [place], [address], [place], [id number], [place], [address]. [place], tel:+ tel:[phone] , [place]. tel: [phone] [facility] [place] Lower abdominal Apr-2 Curiel In Womens pain, unspecified 8-201 Luz. Fili CHUA, 7 700 [address], [address]lyssia, [facility], 120, [id number], [place], [place], tel:[phone] , [place]. tel: [phone] [facility] Threatened Apr-2 Curiel Referring In Womens 7-201 Luz. Provider: Fili CHUA, [address], PO [address] Medical [address], [address], [place], [place], [address], [place], , [place], [address]. [place], tel: tel:[phone] , [place]. tel: [phone] [facility] [place] Irregular Apr-2 Curiel Referring In Womens MensesThreatened 5-201 Luz. Provider: Fili CHUA, abortionLower [address], PO Box abdominal pain, Medical [address], unspecified [address], [place], [place], [address], [place], [id number], [place], [address]. [place], tel: tel:[phone] , [place]. tel: [phone] [facility] [place] Other specified Nov-1 Curiel Referring In Womens hypothyroidism 4-201 Luz. Provider: Fili CHUA, [address], PO [address] Medical [address], [address], [place], [place], [address], [place], [id number], [place], [address]. [place], tel:+ tel:[phone] , [place]. tel: [phone] Brock [place] Other specified Oct-2 Curiel In Womens hypothyroidism 7-201 Luz. Fili CHUA, 6 700 [facility] Medical [address], [address] Dr [address]lyssia, [facility] [place], 120, [id number], [place], [place], tel:+ [phone] , [place]. 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 Provider: Fili CHUA, (routine) w/o abn [address], PO Box [facility] Medical [address], [address], [place], [place], [address], [place], [id number], [place], [address]. [place], tel:+ tel: [phone] , [place]. tel: [phone] Brock [place] Dec-2 [place] Referring In Womens 2-201 Tamera. Provider: Fili CHUA, [address], PO Box Medical [address], [address], [place], [place], 120, [place], [id number], [place], [address]. [place], tel: tel: [phone] , [place]. tel: [phone] Brock [place] Oct-2 [place]eman Referring In Womens 0-201 Tamera. Provider: Fili CHUA, 4 700 [place] PO [address] Medical [place] [address], Center S, [address], [facility], 120, [place] [id number], [facility] 120, [place], tel: [phone] [place], , [place]. [id number]. tel: tel: [phone] Brock [place] Sep-1 Holdeman Referring In Womens 9-201 Tamera. Provider: Fili CHUA, 4 700 [place] [address] Medical [place] [address], Center S, [address]lyss[address], [facility], 120, [place] [id number], [place], [facility] 120, [place], tel:[phone] [place], , [place]. [id number]. tel: tel:[phone] Associates [place] May- Marc In Womens 1-201 Tamera. [facility], 4 700 [facility] [address], [place] [address], [place], [place], [id number], [place], [facility], tel:[phone] , . tel: [phone] Family History Family Member Diagnosis Age At Onset Maternal Grandmother Cancer, breast No family history of Colon Cancer No family history of Ovarian Cancer No family history of Stroke No family history of Uterine Cancer No family history of Cardiovascular Disease Immunizations Vaccine Date Status Comments Tdap completed Source: New Immunization Record Influenza, injectable, completed Source: New Immunization Record quadrivalent, preservative free, 3 yrs or older Payers Payer name Insurance type Covered green party ID Authorization(s) [facility] [id number] [facility] [id number] [facility] [id number] Social History Type Description Quantity Date Captured Alcohol Use Details Caffeine Use Details No Tobacco Use Status Never smoked tobacco Smoking Status Never smoker Vital Signs Date / Height Weight BMI Pulse Blood Temperature Respiratory Body Head BMI Time: Rate Pressure Rate Surface Circumference percentile Area 162.30 75 119/83 -2017 lbs /min mm[Hg] 3:36 PM Chief Complaint And Reason For Visit Most recent encounter only, dated '10/20/2016 15:30'. LLQ pain (chief complaint). Description: She was given methotrexate on 06/22 for an ectopic. Her menses are regular every 28 days. In July, August, and September she's had LLQ pain mid cycle that resembles the pain from the ectopic. She gets mild dysmenorrhea. She's concerned about having another ectopic. Reason For Referral Reason For Referral Unknown Plan Of Care Date Type Action Status Goal Lifestyle education regarding diet completed Goal Lifestyle education regarding diet completed Goal Lifestyle education regarding diet completed Date Type Problem Goal Intervention Status Start Date Unknown. History Of Present Illness Encounter Date Complaint History Of Present Illness LLQ pain She was given methotrexate on 06/22 for an ectopic. Her menses are regular every 28 days. In July, August, and September she's had LLQ pain mid cycle that resembles the pain from the ectopic. She gets mild dysmenorrhea. She's concerned about having another ectopic. Functional Status Encounter Date Functional Assessment Cognitive Assessment Unknown Medications Administered Medication Instructions Dosage Effective Dates (start - stop) Status Comments Drug Treatment Unknown Instructions Date Instruction Additional Information Giving encouragement to exercise Related to Body mass index 25.0- 25.9 Lifestyle education regarding diet Related to Body mass index 25.0-25.9 Lifestyle education regarding diet Related to Body mass index 25.0-25.9 Giving encouragement to exercise Related to Body mass index 25.0- 25.9 Giving encouragement to exercise Related to Body mass index 25.0- 25.9 Lifestyle education regarding diet Related to Body mass index 25.0-25.9
--- OUTSIDE RECORDS SUMMARY | 2017-10-08 05:25 | External Medical Summary | Continuity of Care Document ---
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 Other specified hypothyroidism Other specified hypothyroidism - Irregular Menses Lower abdominal pain, unspecified Threatened Unspec ectopic preg w/out intrauterine preg Unspec ectopic preg w/out intrauterine preg Threatened - Lower abdominal pain, unspecified Lower abdominal pain, unspecified - Threatened - Unspec ectopic preg w/out intrauterine preg [...] Team Description For Visit Members [facility] Pozo and Nj In [facility] perineal pain 1-201 [facility] i2we [place], 7 700 [address], [address], [place], [address], [id number], [place], [place], tel: [phone] , [place]. tel: [phone] Brock [place] Aug- Nj In Womens 1-201 Gabbi. Fili CHUA, 7 700 [address], [address], [facility], 120, [id number], [facility] [place], tel: [phone] , [place]. tel: [phone] Brock [place] Personal history Joshua-1 Curiel Referring In Womens of comp of preg, 5-201 Luz. Provider: Fili CHUA, rick and the [address], PO Box [facility] Medical [address], [address], [place], [place], 120, [place], , [place], [address]. [place], tel: tel:[phone] , [place]. tel: [phone] Brock [place] Unspec ectopic May-2 Curiel In Womens preg w/out 3-201 Luz. Fili CHUA, intrauterine preg 7 700 PO [place] Medical [address], [address], [facility], 120, , [facility] [place], tel:[phone] , [place]. tel: [phone] Brock [place] Unspec ectopic May-1 Curiel In Womens preg w/out 7-201 Luz. Fili CHUA, intrauterine preg 7 700 PO [place] Medical [address], [address], [facility], 120, [id number], [facility] [place], tel: [phone] , [place]. tel: [phone] Brock [place] Encounter for May-0 Curiel Referring In Womens test, 9-201 Luz. Provider: Fili CHUA, result unknown [address], PO [address] Medical [address], [address], [place], [place], [place], , [place], [address]. [place], tel: tel: [phone] , [place]. tel: [phone] [facility] [place] Unspec ectopic May-0 Curiel In Womens preg w/out 9-201 Luz. Health HARSHIL, intrauterine preg 7 700 [address], [address]lyssia, [facility], 120, [id number], [place], [place], tel: [phone] , [place]. tel: [phone] [facility] [place] Unspec ectopic May-0 Curiel Referring In Womens preg w/out 4-201 Luz. Provider: Health HARSHIL, intrauterine preg [address], PO [address] Medical [address], [address], [place], [place], [address], [place], , [place], [address]. [place], tel: tel: [phone] , [place]. tel: [phone] [facility] [place] Unspec ectopic May-0 Curiel Referring In Womens preg w/out 1-201 Luz. Provider: Health HARSHIL, intrauterine [address], PO Box preg Medical [address], state, incidental [address] Alyssia, [place], [place], 120, [place], , [place], [address]. [place], tel: tel: [phone] , [place]. tel: [phone] [facility] [place] Lower abdominal May-0 Curiel Referring In Womens Ultrasound pain, 1-201 Luz. Provider: Health HARSHIL, unspecifiedThreat [address], PO Box ened Medical [address], [address], [place], [place], [place], , [place], [address]. [place], tel: tel: [phone] , [place]. tel: [phone] [facility] [place] Lower abdominal Apr-2 Curiel In Womens pain, unspecified 8-201 Luz. Health [facility], 7 700 [address], [address]lyss[address], [facility], 120, [id number], [place], [place], tel: [phone] , [place]. tel: [phone] Brock [place] Threatened Apr-2 Curiel Referring In Womens 7-201 Luz. Provider: Health [place], [address], [address] Medical [address], [address], [place], [place], 120, [place], [id number], [place], [address]. [place], tel:+ tel:[phone] , [place]. tel: [phone] Brock [place] Irregular Apr-2 Curiel Referring In Womens MensesLower 5-201 Luz. Provider: Health PA, abdominal pain, [address], PO Box unspecifiedThreat Medical [address], ened [address], [place], [place], 120, [place], , [place], [address]. [place], tel: tel:[phone] , [place]. tel: [phone] Brock [place] Other specified Nov-1 Curiel Referring In Womens hypothyroidism 4-201 Luz. Provider: Health HARSHIL, [address], [address] Medical [address], [address], [facility] [place], [place], [place], [place], , [place], [address]. [place], tel: tel:[phone] , [place]. tel: [phone] Brock [place] Other specified Oct-2 Curiel In Womens hypothyroidism 7-201 Luz. Health [facility], 6 700 [address], [place] [address]lyss[address], [facility], 120, [id number], [place], [place], tel:+ [phone] , [place]. 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 Provider: Fili CHUA, (routine) w/o abn [address], PO Box [facility] Medical [address], [address], [place], [place], 120, [place], [id number], [place], [address]. [place], tel:+ tel: [phone] , [place]. tel: [phone] Brock [place] Dec-2 Holdeman Referring In Womens 2-201 Tamera. Provider: Fili CHUA, [address], [address] Medical [address], [address], [place], [place], 120, [place], [id number], [place], [address]. [place], tel:+ tel:[phone] , [place]. tel: [phone] Brock [place] Oct-2 [place] Referring In Womens 0-201 Tamera. Provider: Fili CHUA, 4 700 [place] [address] Medical [place] [address], Center S, [address], [facility], 120, [place] [id number], [facility] 120, [place], tel: [phone] [place], , [place]. [id number]. tel: tel: [phone] Brock [place] Sep-1 [place]eman Referring In Womens 9-201 Tamera. Provider: Fili CHUA, 4 700 [place] [address] Medical [place] [address], Center S, [address], [facility], 120, [place] [id number], [place], [facility] 120, [place], [place], tel: [phone] [place], , [place]. [id number]. tel: tel: [phone] Brock [place] Apr-2 [place] In Womens 1-201 Tamera. Fili CHUA, 4 700 [address], [address]lyss[address], [facility] [place], 120, [id number], [place], [place], tel:[phone] , [place]. tel: [phone] Family History Family Member Diagnosis Age At [...] Insurance type Covered alliance party ID Authorization(s) [facility] [id number] [facility] [id number] [facility] [id number] Social History Type Description Quantity Date Captured [...]
--- OUTSIDE RECORDS SUMMARY | 2017-10-08 05:25 | External Medical Summary | Continuity of Care Document ---
:1985 Author Organization [facility] Address [address] [place], [place] [id number] Phone Care Team Providers Name Role Phone Amirah Adams DO Unavailable Unavailable Allergies, Adverse Reactions, Alerts Substance Reaction Severity Status No Known Drug Allergies Unknown Active Medications Medication Instructions Dosage Effective Dates Status Comments (start - stop) Women's + - Active DHA 28 mg-975 mcg-200 mg oral pack Vitamin take 1 tablet by Not Available - Active tablet oral route every day Problems Condition Effective Dates (start - stop) Clinical Status Encntr for gynecological assistant exam (general) - (routine) w/o 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 Encounter for suprvsn of normal - , second trimester 23 weeks gestation of - Other specified hypothyroidism Other specified hypothyroidism - Acute upper respiratory infection, - unspecified Encounter for suprvsn of normal - , second trimester 15 weeks gestation of - Irregular Menses Threatened Lower abdominal pain, unspecified [place] Encounter for ot general cnsl and advice [...] suprvsn of normal 1-201 Gabbi. Provider: Health HARSHIL, , second [address], [address] [id number] weeks Medical [address], gestation of [facility] [place], Reji [place], 120, [place], , [place], [address]. [facility], tel:+ tel:+ [phone] , . tel: [phone] Brock [place] Endo, nutritional May- Nj Referring In Womens and metab -201 Gabbi. Provider: Health PA, diseases comp [address], PO Box preg, second Medical [address], triEncounter for [facility] [place], suprvsn of normal Reji [place], , second 120, [place], [id number], [id number] [place], [address]. [place] gestation of [place], tel:+ tel:+ [phone] , [place]. tel: [phone] Brock [place] Maternal care for Apr-0 Nj Referring In Womens Ultrasound excess 4-201 Gabbi. Provider: Health PA, growth, second [address], PO Box tri, unspEndo, Medical [address], nutritional and [facility] [place], metab diseases Reji Chavez [place], comp preg, second 120, [place], [id number], [id number] [place], [address]. [place] gestation of [place], tel:+ tel:+ [phone] , [place]. tel: [phone] Brock [place] Acute upper Mar-0 Nj Referring In Womens respiratory 5-201 Gabbi. Provider: Health HARSHIL, infection, [address], PO Box unspecifiedEncoun Medical [address], ter for suprvsn [facility] [place], of normal Reji [place], , second 120, [place], [id number], [id number] [place], [address]. [place] gestation of [place], tel:+ tel: [phone] , [place]. tel: [phone] Brock [place] Maternal care for Feb-2 Nj Referring In Womens excess 6-201 Gabbi. Provider: Health HARSHIL, growth, second [address], PO Box tri, unsp14 weeks Medical [address], gestation of [facility] [place], Reji [place]avez [place], 120, [place], [id number], [place], [address]. [place], tel:+ tel: [phone] , [place]. tel: [phone] Brock [place] Encounter for Regino-3 Nj Referring In Womens suprvsn of normal 0-201 Gabbi. Provider: Health PA, , first [address], PO Box [id number] weeks Medical [address], gestation of [facility] [place], Dr [place], [place], 120, [place], [id number], [place], [address]. [place], tel:+ tel: [phone] , [place]. tel: [phone] Brock [place] Encounter for Regino-0 Nj Referring In Womens suprvsn of normal 2-201 Gabbi. Provider: Fili CHUA, , first [address], PO Box trimesterLess Medical [address], than 8 weeks [facility] [place], gestation of [place], 120, [place], , [place], [address]. [place], tel:+ tel: [phone] , [place]. tel: [phone] Brock [place] Suprvsn of preg w Dec-2 Nj Referring In Womens history of ect or 0-201 Gabbi. Provider: Fili CHUA, molar preg, first [address], PO Box tri Medical [address], Center [address]riage Dr Alyssia, [place], [place], 120, [place], , [place], [address]. [place], tel:+ tel: [phone] , [place]. tel: [phone] Brock [place] Personal history Dec-1 Nj In Womens of comp of preg, 1-201 Gabbi. rick Keating and the 7 700 [address] Box puerp Medical [address], [place] [address] Alyssia, [facility], 120, [id number], [place], [place], tel: [phone] , [place]. tel: [phone] Brock [place] MittelschmerzEnco Aug-2 Nj Referring In Womens unter for oth 9-201 Gabbi. Provider: Fili CHUA, general cnsl and [address], PO Box advice on Medical [address], procreation [address] Alyssia, [place]ji [place], 120, [place], , [place], [address]. [place], tel:[phone] tel: [phone] , [place]. tel: [phone] [facility] [place] Pelvic and Aug-2 Nj In Womens perineal pain 1-201 Gabbi. Fili CHUA, 7 700 PO Box Medical [address], [address], [facility], 120, [id number], [place], [place], tel: [phone] , [place]. tel: [phone] [facility] [place] Personal history Joshua-1 Curiel Referring In Womens of comp of preg, 5-201 Luz. Provider: Fili CHUA, rick and the [address], PO Box [facility] Medical [address], Center [address], [place], [place], 120, [place], , [place], [address]. [place], tel: tel:[phone] , [place]. tel: [phone] [facility] [place] Unspec ectopic May-2 Curiel In Womens preg w/out 3-201 Luz. Fili CHUA, intrauterine preg 7 700 PO Box Medical [address], [address], [facility], 120, [id number], [facility] [place], tel: [phone] , [place]. tel: [phone] [facility] [place] Unspec ectopic May-1 Curiel In Womens preg w/out 7-201 Luz. Fili CHUA, intrauterine preg 7 700 [address] [place] Medical [address], [address], [facility], 120, [id number], [place], tel: [phone] , [place]. tel: [phone] [facility] [place] Encounter for May-0 Curiel Referring In Womens test, 9-201 Luz. Provider: Fili CHUA, result unknown [address], PO Box Medical [address], [address], [place], [place], 120, [place], , [place], [address]. [facility], tel: tel:[phone] , [place]. tel: [phone] [facility] [place] Unspec ectopic May-0 Curiel In Womens preg w/out 9-201 Luz. Health HARSHIL, intrauterine preg 7 700 PO Box Medical 1522, Center Dr Alyssia, [facility], 120, [id number], [place], tel: [phone] , [place]. tel: [phone] [facility] [place] Unspec ectopic May-0 Curiel Referring In Womens preg w/out 4-201 Luz. Provider: Health HARSHIL, intrauterine preg [address], PO Box Medical [address], [address] Alyssia, [place], [place], 120, [place], , [place], [address]. [place], tel: tel: [phone] , [place]. tel: [phone] [facility] [place] Unspec ectopic May-0 Curiel Referring In Womens preg w/out 1-201 Lzu. Provider: Health HARSHIL, intrauterine [address], PO Box preg Medical [address], state, incidental Center [address] Dr Alyssia, [place], [place], 120, [place], , [place], [address]. [place], tel: tel: [phone] , [place]. tel: [phone] [facility] [place] Threatened May-0 Curiel Referring In Womens Ultrasound abortionLower 1-201 Luz. Provider: Health HARSHIL, abdominal pain, [address], PO Box unspecified Medical [address], [address] Alyssia, [place], [place], 120, [place], , [place], [address]. [place], tel: tel: [phone] , [place]. tel: [phone] [facility] [place] Lower abdominal Apr-2 Curiel In Womens pain, unspecified 8-201 Luz. Health PA, 7 700 PO Box Medical [address]22, Center Dr Alyssia, [facility], 120, [id number], [place], [place], tel:+ [phone] , [place]. tel: [phone] Brock [place] Threatened Apr-2 Curiel Referring In Womens - Luz. Provider: Fili CHUA, [address], PO Box Medical [address], [address] Alyssia, [place], [place], 120, [place], [id number], [place], [address]. [place], tel:+ tel:[phone] , [place]. tel: [phone] Brock [place] Irregular Apr-2 Curiel Referring In Womens MensesThreatened - Luz. Provider: Fili CHUA, abortionLower [address], PO Box abdominal pain, Medical [address], unspecified [address] Alyssia, [place], [place], 120, [place], , [place], [address]. [place], tel:+ tel:[phone] , [place]. tel: [phone] Brock [place] Other specified Nov-1 Curiel Referring In Womens hypothyroidism 4- Luz. Provider: Fili CHUA, [address], PO Box Medical [address], [address] Alyssia, [place], [place], 120, [place], , [place], [address]. [place], tel:+ tel: [phone] , [place]. tel: [phone] Brock [place] Other specified Oct-2 Curiel In Womens hypothyroidism 7-201 Luz. Health HARSHIL, 6 700 PO Box Medical [address], [place] [address]lyss[address], [facility], 120, [id number], [place], [place], tel:+ [phone] , [place]. tel: [phone] Brock [place] Encntr for gynecological assistant Denilson-1 Curiel Referring In Womens exam (general) 9- Luz. Provider: Health PA, (routine) w/o abn [address], PO Box [facility] Medical [address], [address] Alyssia, [place], [place], 120, [place], [id number], [place], [address]. [place], tel:+ tel:+ [phone] , [place]. tel: [phone] Brock [place] Dec-2 [place] Referring In Womens 2-201 Tamera. Provider: Fili CHUA, [address], PO Box Medical [address], [address] Alyssia, [place], [place], 120, [place], [id number], [place], [address]. [place], tel:+ tel:+ [phone] , [place]. tel: [phone] Brock P[place] Oct-2 [place] Referring In Womens 0-201 Tamera. Provider: Fili CHUA, 4 700 [address] PO Box Medical [place] 1522, Center S, [address] Dr [address]lyssia, [facility], 120, [place] [id number], [facility], [place], tel: [phone] [place], , [place]. [id number]. tel: tel: [phone] Brock P[place] Sep-1 [place] Referring In Womens 9-201 Tamera. Provider: Fili CHUA, 4 700 [address] PO Box Medical [place] [address], Center S, [address] Dr [address]lyssia, [facility], 120, [place] [id number], [facility] 120, [place], tel: [phone] [place], , [place]. [id number]. tel: tel: [phone] Brock [place] Apr-2 [place] In Womens 1-201 Tamera. Fili CHUA, 4 700 Box Medical [address], [place] [address] Alyssia, [facility] [place], 120, [id number], [place], [place], tel: [phone] , [place]. tel: [phone] Family History Family Member Diagnosis Age At [...] name Insurance type Covered republican ID Authorization(s) [facility] [id number] [facility] [id number] [facility] [id number] Social History Type Description Quantity Date Captured Alcohol Use Details No Caffeine Use Details Unknown Tobacco Use Status Unknown Smoking Status Never smoker Vital Signs Date / Height Weight BMI Pulse Blood Temperature Respiratory Body Head BMI Time: Rate Pressure Rate Surface Circumference percentile Area 162.10 27.8 120/71 2018 lbs 2 mm[Hg] 3:08 kg/m PM eter (2) Chief Complaint And [...] Complete OB Ultrasound > 14 Weeks Ordered ([id number]) Future Order: Lab Order hCG,Beta Subunit, Qnt, Serum Ordered ([id number]) Date Type Problem Goal Intervention Status Start [...]
--- OUTSIDE RECORDS SUMMARY | 2017-10-08 05:25 | External Medical Summary | Continuity of Care Document ---
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 Provider: Fili CHUA, molar preg, first [address], PO Box tri Medical [address], [address] Alyssia, [place], [place], 120, [place], , [place], [address]. [place], tel:+ tel:+ [phone] , [place]. tel: [phone] [facility] [place] Personal history Dec-1 Nj In Womens of comp of preg, 1-201 Gabbi. rick Keating and the 7 700 PO Box puer Medical [address], [address], [facility], 120, , [place], [place], tel:+ [phone] , [place]. tel: [phone] [facility] [place] MittelschmerzEnco Aug-2 Nj Referring In Womens unter for oth 9-201 Gabbi. Provider: Fili CHUA, general cnsl and [address], PO Box advice on Medical [address], procreation [address] Alyssia, [facility] [place], [place], 120, [place], , [place], [address]. [place], tel:+ tel:+ [phone] , [place]. tel: [phone] Brock [place] Pelvic and Sep-2 Nj In Womens perineal pain 1-201 Gabbi. Fili CHUA, 7 700 PO [address] Medical [address], [address], [facility], 120, , [facility] [place], tel:+ [phone] , [place]. tel:[phone] Brock [place] Personal history Joshua-1 Curiel Referring In Womens of comp of preg, 5-201 Luz. Provider: rick Keating and the [address], PO Box puerp Medical [address], [address] Alyssia, [place], [place], 120, [place], [id number], [place], [address]. [place], tel:+ tel:+ [phone] , [place]. tel: [phone] [facility] [place] Unspec ectopic May-2 Curiel In Womens preg w/out 3-201 Luz. Health HARSHIL, intrauterine preg 7 700 [address] Medical [address], [place]lyss[address], [facility], 120, [id number], [place], [place], tel:+ [phone] , [place]. tel: [phone] [facility] [place] Unspec ectopic May-1 Curiel In Womens preg w/out 7-201 Luz. Health HARSHIL, intrauterine preg 7 700 [address] Medical [address], [place], [facility], 120, [id number], [facility] [place], tel:[phone] , [place]. tel: [phone] [facility] [place] Encounter for May-0 Curiel Referring In Womens test, 9-201 Luz. Provider: Health HARSHIL, result unknown [address], PO Box Medical [address], [facility] Dr Alyssia, [place], [place], 120, [place], , [place], [address]. [facility], tel:+ tel:[phone] , [place]. tel: [phone] [facility] [place] Unspec ectopic May-0 Curiel In Womens preg w/out 9-201 Luz. Health HARSHIL, intrauterine preg 7 700 [address] Box Medical [address], [address]lyss[address], [facility], 120, [id number], [place], [place], tel: [phone] , [place]. tel: [phone] [facility] [place] Unspec ectopic May-0 Curiel Referring In Womens preg w/out 4-201 Luz. Provider: Fili CHUA, intrauterine preg [address], PO Box Medical [address], [facility] Dr Alyssia, [place], [place], 120, [place], [id number], [place], [address]. [place], tel: tel: [phone] , [place]. tel: [phone] [facility] [place] Unspec ectopic May-0 Curiel Referring In Womens preg w/out 1-201 Luz. Provider: Health HARSHIL, intrauterine [address], PO Box preg Medical [address], state, incidental Center [address] Alyssia, [place], [place], 120, [place], [id number], [place], [address]. [place], tel: tel: [phone] , [place]. tel: [phone] [facility] [place] Threatened May-0 Curiel Referring In Womens Ultrasound abortionLower 1-201 Luz. Provider: Health PA, abdominal pain, [address], PO Box unspecified Medical [address], [address] Alyssia, [place], [place], 120, [place], , [place], [address]. [place], tel: tel: [phone] , [place]. tel: [phone] [facility] [place] Lower abdominal Apr-2 Curiel In Womens pain, unspecified 8-201 Luz. Health PA, 7 700 [address] Medical [address], [address] Dr Alyssia, [facility], 120, [id number], [place], [place], tel: [phone] , [place]. tel: [phone] [facility] [place] Threatened Apr-2 Curiel Referring In Womens 7-201 Luz. Provider: Health PA, [address], PO Box Medical [address], [address] Alyssia, [place], [place], 120, [place], [id number], [place], [address]. [place], tel:+ tel: [phone] , [place]. tel: [phone] [facility] [place] Irregular Apr-2 Curiel Referring In Womens MensesThreatened 5-201 Luz. Provider: Health PA, abortionLower [address], PO Box abdominal pain, Medical [address], unspecified [address] Alyssia, [facility] [place], [place], 120, [place], [id number], [place], [address]. [place], tel:+ tel:+ [phone] , [place]. tel: [phone] [facility] [place] Other specified Nov-1 Curiel Referring In Womens hypothyroidism 4-201 Luz. Provider: Fili CHUA, [address], PO Box Medical [address], [address] Alyssia, [facility] [place], [place], 120, [place], , [place], [address]. [place], tel:+ tel: [phone] , [place]. tel: [phone] Brock [place] Other specified Oct-2 Curiel In Womens hypothyroidism 7-201 Luz. Fili CHUA, 6 700 [address] Medical [address], [address] Dr Alyssia, [facility], 120, [id number], [place], [place], tel: [phone] , [place]. tel: [phone] Brock [place] Encntr for fisher dip net Denilson-1 Curiel Referring In Womens exam (general) 9-201 Luz. Provider: Fili CHUA, (routine) w/o abn [address], PO Box findings Medical [address], [address] Alyssia, [facility] [place], [place], 120, [place], , [place], [address]. [place], tel: tel: [phone] , [place]. tel: [phone] Brock [place] Dec-2 [place] Referring In Womens 2-201 Tamera. Provider: Fili CHUA, [address], PO Box Medical [address], [address] Alyssia, [place], [place], 120, [place], [id number], [place], [address]. [place], tel: tel:[phone] , [place]. tel: [phone] Brock [place] Nov-2 [place] Referring In Womens 0-201 Tamera. Provider: Health HARSHIL, 4 700 [place] PO Box Medical [place] [address]22, Center S, [address] Dr [address]lyssia, [facility] [place], 120, Center [id number], [place], [facility] 120, [place], tel: [phone] [place], , [place]. [id number]. tel: tel: [phone] Brock [place] Oct- [place] Referring In Womens 9-201 Tamera. Provider: Fili CHUA, 4 700 [place] PO Box Medical [place] [address], [facility], [facility] Dr Alyssia, [facility], 120, [place] [id number], [place], [facility] 120, [place], tel: [phone] [place], , [place]. [id number]. tel: tel: [phone] Brock P[place] May-2 [place] In Womens 1-201 Tamera. Health HARSHIL, 4 700 [facility] Medical 1522, [address], [facility] [place], 120, [id number], [place], [place], tel: [phone] , [place]. tel: [phone] Family History Family Member Diagnosis Age At [...] name Insurance type Covered democrat ID Authorization(s) [facility] [id number] [facility] [id number] [facility] [id number] Social History Type Description Quantity Date Captured [...] Francesca Sanders BOOKED Future Order: Lab Order hCG,Beta Subunit, Qnt, Serum ([id number]) Ordered Date Type Problem Goal Intervention Status [...]
--- OUTSIDE RECORDS SUMMARY | 2017-10-08 05:26 | External Medical Summary | Continuity of Care Document ---
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 Suprvsn of preg w history of ect or molar preg, first tri Other specified hypothyroidism Other specified hypothyroidism - Irregular Menses Threatened Lower abdominal pain, unspecified Dylan Encounter for oth general cnsl and advice on procreation Unspec ectopic preg w/out intrauterine preg Unspec ectopic preg w/out intrauterine preg Unspec ectopic preg w/out intrauterine preg Unspec ectopic preg w/out intrauterine preg state, incidental Unspec ectopic preg w/out intrauterine preg Threatened - Lower abdominal pain, unspecified - [...] LLQ - Active Active Procedures Procedure Date No Charge Office Visit Results Test Name Date and Time Measure Units Reference Range Abnormal Flag Comments Unknown Advance Directives Directive Yes / No Effective Date File Name Unknown Encounters Encounter Practice Location Reason(s) Diagnoses Date Provider Care Team Description For Visit [facility] [place] Encounter for Nj Referring In Womens suprvsn of normal 2-201 Gabbi. Provider: Fili CHUA, , first [address], [address] [facility] [address], than 8 weeks [facility] [place], gestation of , Reji [place], [address], [place], , [place], [address]. [place], tel:+ tel: [phone] , [place]. tel: [phone] [facility] [place] early OB Suprvsn of preg w Nj Referring In Womens (chief history of ect or 0-201 Gabbi. Provider: Fili CHUA, complaint) molar preg, first [address], PO Box tri Medical [address], [address] Alyssia, [facility] [place], [place], [address], [place], , [place], [address]. [place], tel:+ tel: [phone] , [place]. tel: [phone] Brock [place] Personal history Nj In Womens of comp of preg, 1-201 Gabbi. rick Keating and the 7 700 [address] [facility] [address], [place] [address]lyssia, [facility], 120, , [place], [place], tel: [phone] , [place]. tel: [phone] Brock [place] [facility] Nj Referring In Womens unter for oth 9-201 Gabbi. Provider: Fili CHUA, general cnsl and [address], PO Box advice on Medical [address], procreation [address] Alyssia, [place], 120, [place], [id number], [place], [address]. [place], tel:+ tel: [phone] , [place]. tel: [phone] [facility] Pelvic and Aug-2 Nj In Womens perineal pain 1-201 Gabbi. Fili CHUA, 7 700 [address] Medical [address], [address], [facility], 120, [id number], [place], [place], tel:+ [phone] , [place]. tel: [phone] [facility] [place] Personal history Joshua-1 Curiel Referring In Womens of comp of preg, 5-201 Luz. Provider: Fili CUHA, rick and the [address], PO Box [facility] Medical [address], [address] Alyssia, [place], [place], 120, [place], , [place], [address]. [place], tel:+ [phone] , [place]. tel: [phone] [facility] [place] Unspec ectopic May-2 Curiel In Womens preg w/out 3-201 Luz. Fili CHUA, intrauterine preg 7 700 [facility] [address], [address], [facility], 120, , [place], [place], tel:[phone] , [place]. tel: [phone] [facility] [place] Unspec ectopic May-1 Curiel In Womens preg w/out 7-201 Luz. Fili CHUA, intrauterine preg 7 700 [facility] Medical [address], [address], [facility], 120, [id number], [place], [place], tel: [phone] , [place]. tel: [phone] [facility] [place] Encounter for May-0 Curiel Referring In Womens test, 9- Luz. Provider: Fili CHUA, result unknown [address], PO Box Medical [address], [address] Alyssia, [place], [place], [address], [place], , [place], [address]. [facility] [place], tel:+ tel:[phone] , [place]. tel:[phone] [facility] [place] Unspec ectopic May-0 Curiel In Womens preg w/out 9-201 Luz. Health HARSHIL, intrauterine preg 7 700 PO Box Medical [address], Center Dr Alyssia, [facility], 120, [id number], [place], [place], tel: [phone] , [place]. tel: [phone] [facility] [place] Unspec ectopic May-0 Curiel Referring In Womens preg w/out 4-201 Luz. Provider: Health HARSHIL, intrauterine preg [address], PO Box Medical [address], [address] Alyssia, [place], [place], 120, [place], , [place], [address]. [place], tel: tel: [phone] , [place]. tel: [phone] [facility] [place] Unspec ectopic May-0 Curiel Referring In Womens preg w/out 1-201 Luz. Provider: Health HARSHIL, intrauterine [address], PO Box preg Medical [address], state, incidental Center [address] Dr Alyssia, [place], [place], 120, [place], , [place], [address]. [place], tel: tel: [phone] , [place]. tel: [phone] [facility] [place] Threatened May-0 Curiel Referring In Womens Ultrasound abortionLower 1-201 Luz. Provider: Health HARSHIL, abdominal pain, [address], PO Box unspecified Medical [address], [address] Alyssia, [place], [place], [address], [place], , [place], [address]. [place], tel: tel: [phone] , [place]. tel: [phone] [facility] [place] Lower abdominal Apr-2 Curiel In Womens pain, unspecified 8-201 Luz. Health [facility], 7 700 PO Box Medical [address], Center Dr Alyssia, [facility], 120, [id number], [place], [place], tel:+ [phone] , [place]. tel: [phone] Brock [place] Threatened Apr-2 Curiel Referring In Womens 7-201 Luz. Provider: Fili CHUA, [address], PO Box Medical [address], [address] Alyssia, [place], [place], 120, [place], [id number], [place], [address]. [place], tel: tel:[phone] , [place]. tel: [phone] [facility] [place] Irregular Apr-2 Ucriel Referring In Womens MensesThreatened - Luz. Provider: Fili CHUA, abortionLower 7 [address], PO Box abdominal pain, Medical [address], unspecified [address] Alyssia, [place], [place], 120, [place], , [place], [address]. [place], tel:+ tel:[phone] , [place]. tel: [phone] Brock [place] Other specified Nov-1 Curiel Referring In Womens hypothyroidism 4-201 Luz. Provider: Fili CHUA, [address], PO Box Medical [address], [address] Alyssia, [place], [place], 120, [place], , [place], [address]. [place], tel: tel:[phone] , [place]. tel: [phone] Brock [place] Other specified Oct-2 Curiel In Womens hypothyroidism 7-201 Luz. Fili CHUA, 6 700 [address] Medical [address], [address], [facility], 120, [id number], [place], [place], tel:+ [phone] , [place]. 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 Provider: Fili CHUA, (routine) w/o abn 6 [address] PO Box [facility] Medical [address], [address] Alyssia, [place], [place], 120, [place], [id number], [place], [address]. [place], tel:+ tel:[phone] , [place]. tel: [phone] Brock [place] Dec-2 Holdeman Referring In Womens 2-201 Tamera. Provider: Health HARSHIL, 4 [address] [facility] Medical [address], [address] Alyssia, [place], [place], 120, [place], [id number], [place], [address]. [place], tel: tel: [phone] , [place]. tel: [phone] Brock [place] Oct-2 Holdeman Referring In Womens 0-201 Tamera. Provider: Health HARSHIL, 4 700 [facility], Center S, [facility] [address] Alyssia, [facility], 120, [place] [id number], [facility] 120, [facility] [place], [place], tel: [phone] [place], , [place]. [id number]. tel: tel: [phone] Brock [place] Sep-1 Holdeman Referring In Womens 9-201 Tamera. Provider: Health [place]SH[place], 4 700 Tamera [facility] Medical [place] [address], [place] [address], [address]lyssia, [facility], 120, [place] [id number], [facility] 120, [place], [place], tel: [phone] [place], , [place]. [id number]. tel: tel: [phone] Brock [place] Apr-2 [place] In Womens 1-201 Tamera. Health HARSHIL, 4 700 [facility] Medical [address], [address] Dr Alyssia, [facility], 120, [id number], [place], [place], tel: [phone] , [place]. tel: [phone] Family History Family Member Diagnosis Age At [...] Insurance type Covered green party ID Authorization(s) [facility] [id number] [facility] [id number] [facility] [id number] Social History Type Description Quantity Date Captured Alcohol Use Details Unknown Caffeine Use Details Unknown Tobacco Use Status Unknown Smoking Status Never smoker Vital Signs Date / Height Weight BMI Pulse Blood Temperature Respiratory Body Head BMI Time: Rate Pressure Rate Surface Circumference percentile Area 160.50 92 120/76 -2017 lbs /min mm[Hg] 8:23 AM Chief Complaint And Reason For Visit Unknown [...] Order: Lab Order hCG,Beta Subunit, Qnt, Serum ([id number]) Ordered Date Type Problem Goal Intervention Status Start Date Unknown. History Of Present Illness Encounter Date Complaint History Of Present Illness early OB By LMP, she is 5w0d, EDC 10/13/17. She's nervous due to her recent ectopic. She's starting to have nausea and breast tenderness. No bleeding. She has a small amount of LLQ discomfort, but nothing like what she had with the ectopic. Her quants jcarlos appropriately last week. Functional Status Encounter Date Functional Assessment Cognitive [...]
--- OUTSIDE RECORDS SUMMARY | 2017-10-08 05:26 | External Medical Summary | Continuity of Care Document ---
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 Provider: Fili CHUA, complaint) molar preg, first [address], PO Box tri Medical [address], [address] lAyssia, [place], [place], 120, [place], [id number], [place], [address]. [place], tel:+ tel:[phone] , [place]. tel: [phone] [facility] [place] Personal history Dec- Nj In Womens of comp of preg, 1-201 Gabbi. rick Keating and the 7 700 PO Box puer Medical [address], [place] [address]lyssia, [facility], 120, [id number], [place], [place], tel:[phone] , [place]. tel: [phone] [facility] Sep- Nj Referring In Womens unter for oth 9-201 Gabbi. Provider: Fili CHUA, cnsl and [address], PO Box advice on Medical [address], procreation [address] Alyssia, [facility], [place], 120, [place], , [place], [address]. [facility], tel: tel: [phone] , [place]. tel: [phone] Brock [place] Pelvic and Sep-2 Nj In Womens perineal pain 1-201 Gabbi. Fili CHUA, 7 700 [address] Medical [address], [address]lyssia, [facility], 120, , [place], [place], tel:+ [phone] , [place]. tel:[phone] Brock [place] Personal history Joshua-1 Curiel Referring In Womens of comp of preg, 5-201 Luz. Provider: rick Keating and the [address], PO Box puerp Medical [address], Center [facility] Dr Alyssia, [place], [place], [address], [place], [id number], [place], [address]. [facility], tel:+ tel:[phone] , [place]. tel: [phone] [facility] [place] Unspec ectopic May-2 Curiel In Womens preg w/out 3-201 Luz. Health HARSHIL, intrauterine preg 7 700 [address] Medical [address], [place] Alyssia, [facility], 120, [id number], [place], [place], tel:+ [phone] , [place]. tel: [phone] [facility] [place] Unspec ectopic May-1 Curiel In Womens preg w/out 7-201 Luz. Health HARSHIL, intrauterine preg 7 700 [address] Medical [address], [address]lyssia, [facility], 120, [id number], [place], [place], tel:+ [phone] , [place]. tel: [phone] [facility] [place] Encounter for May-0 Curiel Referring In Womens test, 9-201 Luz. Provider: Fili CHUA, result unknown [address], PO Box Medical [address], [facility] [address] Alyssia, [facility] [place], [place], 120, [place], , [place], [address]. [facility], tel:+ tel:[phone] , [place]. tel: [phone] [facility] [place] Unspec ectopic May-0 Curiel In Womens preg w/out 9-201 Luz. Health [facility], intrauterine preg 7 700 [address] Medical [address], [address] Alyssia, [facility], 120, [id number], [place], [place], tel:+ [phone] , [place]. tel:[phone] [facility] [place] Unspec ectopic May-0 Curiel Referring In Womens preg w/out 4-201 Luz. Provider: Fili CHUA, intrauterine preg [address], PO Box Medical [address], [facility] [address] Alyssia, [place], [place], 120, [place], [id number], [place], [address]. [place], tel: tel: [phone] , [place]. tel: [phone] [facility] [place] Unspec ectopic May-0 Curiel Referring In Womens preg w/out 1-201 Luz. Provider: Health HARSHIL, intrauterine [address], PO Box preg Medical [address], state, incidental Center [address] Dr Alyssia, [facility], [place], 120, [place], [id number], [place], [address]. [place], tel: tel:[phone] , [place]. tel: [phone] [facility] [place] Threatened May-0 Curiel Referring In Womens Ultrasound abortionLower 1-201 Luz. Provider: Health [facility], abdominal pain, [address], PO Box unspecified Medical [address], [address] Alyssia, [place], [place], 120, [place], , [place], [address]. [place], tel: tel:[phone] , [place]. tel: [phone] [facility] [place] Lower abdominal Apr-2 Curiel In Womens pain, unspecified 8-201 Luz. Health [facility], 7 700 [address] Medical [address], [address] Alyssia, [facility], 120, , [place], [place], tel: [phone] , [place]. tel: [phone] [facility] [place] Threatened Apr-2 Curiel Referring In Womens 7-201 Luz. Provider: Health [facility], [address], PO Box Medical [address], [address] Alyssia, [facility] [place], [place], 120, [place], [id number], [place], [address]. [place], tel: tel:[phone] , [place]. tel: [phone] [facility] [place] Irregular Apr-2 Curiel Referring In Womens MensesThreatened 5-201 Luz. Provider: Fili CHUA, abortionLower [address], PO Box abdominal pain, Medical [address], unspecified [address] Alyssia, [facility] [place], [place], [address], [place], [id number], [place], [address]. [place], tel:+ tel:[phone] , [place]. tel: [phone] Brock [place] Other specified Nov-1 Curiel Referring In Womens hypothyroidism 4-201 Luz. Provider: Fili CHUA, [address], PO Box Medical [address], [address] Alyssia, [facility] [place], [place], 120, [place], [id number], [place], [address]. [place], tel:+ tel:[phone] , [place]. tel: [phone] Brock [place] Other specified Oct-2 Curiel In Womens hypothyroidism 7-201 Luz. Fili CHUA, 6 700 [address] Medical [address], [address] Dr Alyssia, [facility], 120, [id number], [place], [place], tel: [phone] , [place]. 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 Provider: Fili CHUA, (routine) w/o abn [address], PO Box findings Medical [address], [address] Alyssia, [place], [place], [address], [place], [id number], [place], [address]. [place], tel:+ tel: [phone] , [place]. tel: [phone] Brock [place] Dec-2 [place] Referring In Womens 2-201 Tamera. Provider: Fili CHUA, [address], PO Box Medical [address], [address] Alyssia, [place], [place], 120, [place], [id number], [place], [address]. [place], tel: tel: [phone] , [place]. tel: [phone] Brock [place] Oct-2 [place] Referring In Womens 0-201 Tamera. Provider: Health HARSHIL, 4 700 [address] Medical [place] [address], Center S, [address], [facility] [place], 120, [place] [id number], [place], [facility] 120, [place], tel: [phone] [place], , [place]. [id number]. tel: tel: [phone] Brock [place] Sep-1 [place] Referring In Womens 9-201 Tamera. Provider: Health HARSHIL, 4 700 [address] Medical [place] [address], Center S, [address]lyss[address], [facility] [place], 120, [place] [id number], [place], [facility] 120, [place], tel: [phone] [place], , . [id number]. tel: tel: [phone] Brock [place] Apr-2 [place]eman In Womens 1-201 Tamera. Health [facility], 4 700 [address] Medical [address], [address]lyss[address], [facility] [place], 120, [id number], [place], [place], tel: [phone] , [place]. tel: [phone] Family History Family Member Diagnosis Age At [...] Insurance type Covered alliance party ID Authorization(s) [facility] [id number] [facility] [place] [id number] [facility] [id number] Social History Type Description Quantity Date Captured Alcohol Use Details Unknown Caffeine Use Details Unknown Tobacco Use Status Unknown Smoking Status Never smoker Vital Signs Date / Height Weight BMI Pulse Blood Temperature Respiratory Body Head BMI Time: Rate Pressure Rate Surface Circumference percentile Area 160.50 92 120/76 -2017 lbs /min mm[Hg] 8:23 AM Chief Complaint And Reason For Visit Most recent encounter only, dated '02/10/2017 08:15'. early OB (chief complaint). Description: By LMP, she is 5w0d, EDC 10/13/17. She's nervous dueto her recent ectopic. She's starting to have nausea and breast tenderness. No bleeding. Shehas a small amount of LLQ discomfort, but nothing like what she had with the ectopic. Her quants jcarlos appropriately last week. Reason For Referral Reason For Referral Unknown Plan Of Care Date Type Action Status Goal Lifestyle education regarding diet completed Goal Lifestyle education regarding diet completed Goal Lifestyle education regarding diet completed Appointment Francesca Sanders BOOKED Future Order: Lab Order hCG,Beta Subunit, Qnt, Serum ([id number]) Ordered Date Type Problem Goal Intervention Status [...]
--- OUTSIDE RECORDS SUMMARY | 2017-10-08 05:26 | External Medical Summary | Continuity of Care Document ---
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 Pelvic and perineal pain Other specified hypothyroidism Other specified hypothyroidism - Irregular Menses Threatened Lower abdominal pain, unspecified Pari Encounter for ot general cnsl and advice on procreation Unspec ectopic preg w/out intrauterine preg Threatened - Lower abdominal pain, unspecified Threatened - Lower abdominal pain, unspecified - Unspec ectopic preg w/out intrauterine preg state, incidental Unspec ectopic preg w/out intrauterine preg Unspec ectopic preg w/out intrauterine preg Unspec ectopic preg w/out intrauterine preg Encounter for test, result unknown Personal history [...] Care Team Description For Visit Members Brock Stone [place] Referring In Womens unter for oth Gabbi. Provider: Fili CHUA, general cnsl and [address], PO Box advice on Medical [address], procreation Center [address], [place], [place], 120, [place], [id number], [place], [address]. [place], tel:+ tel:+ [phone] , [place]. tel: [phone] [facility] [place] Pelvic and Aug-2 Nj In Womens perineal pain - Gabbi. Fili CHUA, 7 700 [address], [address], [facility], 120, , [place], [place], tel: [phone] , [place]. tel: [phone] [facility] [place] Personal history Joshua-1 Curiel Referring In Womens of comp of preg, 5- Luz. Provider: Fili CHUA, rick and the [address], PO Box puerp Medical [address], [address], [place], [place], 120, [place], [id number], [place], [address]. [place], tel: tel: [phone] , [place]. tel: [phone] [facility] [place] Unspec ectopic May-2 Curiel In Womens preg w/out 3-201 Luz. Fili CHUA, intrauterine preg 7 700 PO [address] Medical [address], [address], [facility], 120, , [place], [place], tel: [phone] , [place]. tel: [phone] [facility] [place] Unspec ectopic May-1 Curiel In Womens preg w/out -201 Luz. Fili CHUA, intrauterine preg 7 700 [address] Medical [address], [address], [facility], 120, [id number], [place], [place], tel:+ [phone] , [place]. tel: [phone] Brock [place] Encounter for May-0 Curiel Referring In Womens test, 9- Luz. Provider: Health HARSHIL, result unknown [address], PO Box Medical [address], [address], [place], [place], 120, [place], , [place], [address]. [place], tel:+ tel:+ [phone] , [place]. tel: [phone] [facility] [place] Unspec ectopic May-0 Curiel In Womens preg w/out 9- Luz. Health [place], intrauterine preg 7 700 PO [address] Medical [address], [address], [facility], 120, [id number], [place], tel: [phone] , [place]. tel: [phone] [facility] [place] Unspec ectopic May-0 Curiel Referring In Womens preg w/out 4-201 Luz. Provider: Fili CHUA, intrauterine preg [address], PO Box Medical [address], [address]lyssia, [facility] [place], [place], 120, [place], , [place], [address]. [place], tel:+ tel: [phone] , [place]. tel: [phone] [facility] [place] Unspec ectopic May-0 Curiel Referring In Womens preg w/out -201 Luz. Provider: Fili CHUA, intrauterine [address], PO Box preg Medical [address], state, incidental [address] Alyssia, [facility] [place], [place], 120, [place], , [place], [address]. [place], tel:+ tel: [phone] , [place]. tel: [phone] [facility] [place] Threatened May-0 Curiel Referring In Womens Ultrasound abortionLower Luz. Provider: Health HARSHIL, abdominal pain, [address], PO Box unspecified Medical [address], [address], [place], [place], [address], [place], , [place], [address]. [place], tel:+ tel:+ [phone] , [place]. tel: [phone] [facility] [place] Lower abdominal Apr-2 Curiel In Womens pain, unspecified 8-201 Luz. Health HARSHIL, 7 700 PO [address] Medical [address], [address], [facility], 120, [id number], [place], [place], tel: [phone] , [place]. tel: [phone] [facility] [place] Threatened Apr-2 Curiel Referring In Womens 7-201 Luz. Provider: Fili CHUA, [address], PO Box Medical [address], [address], [place], [place], 120, [place], , [place], [address]. [place], tel: tel: [phone] , [place]. tel: [phone] [facility] [place] Irregular Apr-2 Curiel Referring In Womens MensesThreatened 5-201 Luz. Provider: Fili CHUA, abortionLower 7 [address], PO Box abdominal pain, Medical [address], unspecified [address], [place], [place], 120, [place], , [place], [address]. [place], tel:+ tel: [phone] , [place]. tel: [phone] [facility] [place] Other specified Nov-1 Curiel Referring In Womens hypothyroidism 4-201 Luz. Provider: Fili CHUA, [address], PO Box Medical [address], [address]ia, [facility] [place], [place], [address], [place], , [place], [address]. [place], tel:+ tel:[phone] , [place]. tel: [phone] [facility] [place] Other specified Oct-2 Curiel In Womens hypothyroidism 7-201 Luz. Health HARSHIL, 6 700 [address] Medical [address], [address], [facility] [place], 120, [id number], [place], [place], tel: [phone] , [place]. 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 Provider: Health HARSHIL, (routine) w/o abn 6 [address], PO Box [facility] Medical [address], [address], [place], [place], 120, [place], [id number], [place], [address]. [place], tel:+ tel: [phone] , [place]. tel: [phone] Brock [place] Dec-2 Marc Referring In Womens 2-201 Tamera. Provider: Fili CHUA, [address], PO Box Medical [address], [address], [place], [place], 120, [place], [id number], [place], [address]. [place], tel: tel:[phone] , [place]. tel: [phone] Brock [place] Oct-2 Marc Referring In Womens 0-201 Tamera. Provider: Fili CHUA, 4 700 [address] PO Box Medical [place] [address], Center S, [address], [facility], 120, [place] [id number], [facility], [place], tel:[phone] [place], , [place]. [id number]. tel: tel: [phone] Brock [place] Sep- Marc Referring In Womens 9-201 Tamera. Provider: Fili CHUA, 4 700 [place] PO Box Medical [place] [address], Center S, [address], [facility], 120, [place] [id number], [place] [facility] 120, [place], tel:[phone] [place], , [place]. [id number]. tel: tel: [phone] Brock [place] Apr-2 Marc In Womens 1-201 [place]. Health [place], 4 700 [address] [place] [id number], [place] [address], [facility] [place], 120, [id number], [place], [facility], tel:[phone] , [place]. tel: [phone] Family History Family Member Diagnosis Age At [...] name Insurance type Covered republican ID Authorization(s) [facility] [id number] [facility] [id number] [facility] [id number] Social History Type Description Quantity Date Captured [...]
--- OUTSIDE RECORDS SUMMARY | 2017-10-08 05:26 | External Medical Summary | Continuity of Care Document ---
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 Maternal care for excess growth, - second tri, unsp 14 weeks gestation of - Encounter for suprvsn of normal - , first trimester 10 weeks gestation of - Acute upper respiratory infection, - unspecified Encounter for suprvsn of normal - , second trimester 15 weeks gestation of - Other specified hypothyroidism Other specified hypothyroidism - Irregular Menses Threatened Lower abdominal pain, unspecified Pari Encounter for oth general cnsl and advice [...] N 1522, ter for suprvsn Center Carriage [place], of normal [place], , second 120, [place], [id number], [id number] [place], [address]. [place] gestation of [place], tel:+ tel:[phone] , [place]. tel: [phone] Brock [place] Maternal care for Mar- Nj Referring In Womens excess 6-201 Gabbi. Provider: Fili CHUA, growth, second [address], PO Box tri, unsp14 weeks Medical [address], gestation of Center Carriage [place], [place], 120, [place], [id number], [place], [address]. [place], tel:+ tel:+ [phone] , [place]. tel: [phone] Brock [place] Encounter for Nj Referring In Womens suprvsn of normal 0-201 Gabbi. Provider: Fili CHUA, , first [address], PO Box [id number] weeks Medical [address], gestation of Center Carriage [place], , [place], 120, [place], [id number], [place], [address]. [place], tel:+ tel: [phone] , [place]. tel: [phone] Brock [place] Encounter for Regino-0 Nj Referring In Womens suprvsn of normal 2-201 Gabbi. Provider: Fili CHUA, , first [address], PO Box trimesterLess Medical [address], than 8 weeks Center Carriage [place], gestation of [place], 120, [place], , [place], [address]. [place], tel:+ tel: [phone] , [place]. tel: [phone] [facility] [place] Suprvsn of preg w Dec-2 Nj Referring In Womens history of ect or 0-201 Gabbi. Provider: Fili CHUA, molar preg, first [address], PO Box tri Medical [address], [address], [place], 120, [place], , [place], [address]. [place], tel: tel: [phone] , [place]. tel: [phone] Brock [place] Personal history Dec-1 Nj In Womens of comp of preg, 1-201 Gabbi. rick Keating and the 7 700 PO Box puerp Medical [address], [address], [facility], 120, [id number], [place], [place], tel: [phone] , [place]. tel: [phone] Brock [place] Mittelschmer[place]andana Aug-2 Nj Referring In Womens unter for oth 9-201 Gabbi. Provider: Fili CHUA, general cnsl and [address], PO Box advice on Medical [address], procreation Center [address], [place], 120, [place], , [place], [address]. [place], tel:[phone] tel:[phone] , [place]. tel: [phone] [facility] [place] Pelvic and Aug-2 Nj In Womens perineal pain 1-201 Gabbi. Fili CHUA, 7 700 PO Box Medical [address], [address], [facility], 120, [id number], [place], [place], tel: [phone] , [place]. tel: [phone] [facility] [place] Personal history Joshua-1 Curiel Referring In Womens of comp of preg, 5-201 Luz. Provider: Fili CHUA, rick and the 7 [address], PO Box [facility] Medical [address], [address], [place], [place], 120, [place], , [place], [address]. [place], tel: [phone] , [place]. tel: [phone] [facility] [place] Unspec ectopic May-2 Curiel In Womens preg w/out 3-201 Luz. Fili CHUA, intrauterine preg 7 700 [address] Medical [address], [address], [facility], 120, [id number], [place], [place], tel: [phone] , [place]. tel: [phone] [facility] [place] Unspec ectopic May-1 Curiel In Womens preg w/out 7-201 Luz. Fili CHUA, intrauterine preg 7 700 PO [place] [facility] [address], [address], [facility], 120, [id number], [place], [place], tel: [phone] , [place]. tel: [phone] [facility] [place] Encounter for May-0 Curiel Referring In Womens test, 9-201 Luz. Provider: Fili CHUA, result unknown [address], PO Box Medical [address], [address], [place], [place], 120, [place], [id number], [place], [address]. [facility], tel: tel:[phone] , [place]. tel: [phone] [facility] [place] Unspec ectopic May-0 Curiel In Womens preg w/out 9-201 Luz. Health [place], intrauterine preg 7 700 [address] Medical [address], [address], [facility], 120, [id number], [place], [place], tel: [phone] , [place]. tel: [phone] [facility] [place] Unspec ectopic May-0 Curiel Referring In Womens preg w/out 4-201 Luz. Provider: Health [place], intrauterine preg [address], PO Box Medical [address], [address], [place], [place], 120, [place], , [place], [address]. [place], tel: tel: [phone] , [place]. tel: [phone] [facility] [place] Unspec ectopic May-0 Curiel Referring In Womens preg w/out 1-201 Luz. Provider: Health HARSHIL, intrauterine [address], PO Box preg Medical [address], state, incidental [address]lyssia, [place], [place], 120, [place], , [place], [address]. [place], tel: tel: [phone] , [place]. tel: [phone] [facility] [place] Threatened May-0 Curiel Referring In Womens Ultrasound abortionLower 1-201 Luz. Provider: Health HARSHIL, abdominal pain, [address], PO Box unspecified Medical [address], [address], [facility] [place], 120, [place], , [place], [address]. [place], tel: tel: [phone] , [place]. tel: [phone] [facility] [place] Lower abdominal Apr-2 Curiel In Womens pain, unspecified 8-201 Luz. Health [place], 7 700 PO [address] Medical [address], [address], [facility], 120, [id number], [place], [place], tel:+ [phone] , [place]. tel: [phone] Brock [place] Threatened Apr-2 Curiel Referring In Womens 7- Luz. Provider: Fili CHUA, [address], PO Box Medical [address], [address], [place], [place], 120, [place], [id number], [place], [address]. [place], tel:+ tel:[phone] , [place]. tel: [phone] Brock [place] Irregular Apr-2 Curiel Referring In Womens MensesThreatened - Luz. Provider: Fili CHUA, abortionLower [address], PO Box abdominal pain, Medical [address], unspecified [address], [place], [place], 120, [place], , [place], [address]. [place], tel:+ tel:+ [phone] , [place]. tel: [phone] Brock [place] Other specified Nov-1 Curiel Referring In Womens hypothyroidism 4-201 Luz. Provider: Fili CHUA, [address], PO Box Medical [address], [address], [place], [place], 120, [place], , [place], [address]. [place], tel:+ tel: [phone] , [place]. tel: [phone] Brock [place] Other specified Oct-2 Curiel In Womens hypothyroidism 7- Luz. Health HARSHIL, 6 700 [address] Medical [address], [address], [facility], 120, [id number], [place], [place], tel:+ [phone] , [place]. 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 Provider: Fili CHUA, (routine) w/o abn 6 [address], PO Box [facility] Medical [address], [address], [place], [place], 120, [place], [id number], [place], [address]. [place], tel:+ tel:+ [phone] , [place]. tel: [phone] Brock [place] Dec-2 [place] Referring In Womens 2-201 Tamera. Provider: Fili CHUA, [address], PO Box Medical [address], [address], [place], [place], 120, [place], [id number], [place], [address]. [place], tel:+ tel:+ [phone] , [place]. tel: [phone] Brock [place] Oct-2 [place] Referring In Womens 0-201 Tamera. Provider: Fili CHUA, 4 700 [place] PO Box Medical [place] [address], Center S, [address], [facility], 120, [place] [id number], [facility] 120, [place], tel:[phone] [place], , [place]. [id number]. tel: tel: [phone] Brock [place] Sep-1 [place] Referring In Womens 9-201 Tamera. Provider: Fili CHUA, 4 700 [place] PO Box Medical [address] [address], Center S, [address], [facility], 120, [place] [id number], [facility], [place], tel: [phone] [place], , [place]. [id number]. tel: tel: [phone] Brock [place] Apr-2 [place] In Womens 1-201 Tamera. Fili CHUA, 4 700 [address] Medical [address], [address], [facility] [place], 120, [id number], [place], [place], tel: [phone] , [place]. tel: [phone] Family History Family Member Diagnosis Age At [...] older Payers Payer name Insurance type Covered constitution party ID Authorization(s) [facility] [id number] [facility] [id number] [facility] [id number] Social History Type Description Quantity Date Captured Alcohol Use Details No Caffeine Use Details Unknown Tobacco Use Status Unknown Smoking Status Never smoker Vital Signs Date / Height Weight BMI Pulse Blood Temperature Respiratory Body Head BMI Time: Rate Pressure Rate Surface Circumference percentile Area -2017 1 3:50 kg/m PM eter (2) 153.60 26.3 121/80 -2018 lbs 6 mm[Hg] 3:50 kg/m PM eter (2) Chief Complaint And [...] Order: Lab Order hCG,Beta Subunit, Qnt, Serum ([id number]) Ordered Date Type Problem Goal Intervention Status [...]
--- OUTSIDE RECORDS SUMMARY | 2017-10-08 05:26 | External Medical Summary | Continuity of Care Document ---
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) w/o 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 Encounter for suprvsn of normal - , first trimester Less than 8 weeks gestation of - Other specified hypothyroidism Other specified hypothyroidism - Irregular Menses Threatened Lower abdominal pain, unspecified Dylan Encounter for ot general cnsl and advice [...] Active Active Procedures Procedure Date No Charge Sonogram Initial OB Visit No Charge Infct Antigen, HIV-1/2 Antigen/Antibodies 4th Gen Obstetric profile Assay thyroid stimulating hormone Venpnctr fngr/heel/ear stick routne Cult, bactr, tima colonycnt, urine Results Test Name Date and Time Measure Units Reference Range Abnormal Flag Comments Panel Description: OBSTETRIC PANEL WHITE BLOOD CELL 5.9 Thousand/uL 3.8-10.8 N COUNT 10:42:00 RED BLOOD CELL 4.48 Million/uL 3.80-5.10 N COUNT 10:42:00 HEMOGLOBIN 13.0 g/dL 11.7-15.5 N 10:42:00 HEMATOCRIT 40.1 % 35.0-45.0 N 10:42:00 MCV 89.5 fL 80.0-100.0 N 10:42:00 MCH 29.0 pg 27.0-33.0 N 10:42:00 MCHC 32.4 g/dL 32.0-36.0 N 10:42:00 RDW 12.5 % 11.0-15.0 N 10:42:00 PLATELET COUNT 252 Thousand/uL 140-400 N 10:42:00 MPV 11.7 fL 7.5-12.5 N 10:42:00 ABSOLUTE 4331 cells/uL 5767-4105 N NEUTROPHILS 10:42:00 ABSOLUTE 1015 cells/uL 850-3900 N LYMPHOCYTES 10:42:00 ABSOLUTE 478 cells/uL 200-950 N MONOCYTES 10:42:00 ABSOLUTE 47 cells/uL 15-500 N EOSINOPHILS 10:42:00 ABSOLUTE 30 cells/uL 0-200 N BASOPHILS 10:42:00 NEUTROPHILS 73.4 % N 10:42:00 LYMPHOCYTES 17.2 % N 10:42:00 MONOCYTES 8.1 % N 10:42:00 EOSINOPHILS 0.8 % N 10:42:00 BASOPHILS 0.5 % N 10:42:00 ANTIBODY SCREEN, NO ANTIBODIES N RBC W/REFL ID, 10:42:00 DETECTED Reference range TITER AND AG No antibodies detected This assay is a screening test for the detection of red blood cell antibodies. The test is not to be used for pretransfusion screening or for the medical management of an alloimmunized . ABO GROUP A 10:42:00 RH TYPE RH(D) 10:42:00 POSITIVE RPR (DX) W/REFL NON-REACTIVE NON-REACTIV N TITER AND 10:42:00 E CONFIRMATORY TESTING HEPATITIS B NON-REACTIVE NON-REACTIV N SURFACE ANTIGEN 10:42:00 E RUBELLA ANTIBODY 3.54 index N Index (IGG) 10:42:00 Interpretation ----- <0.90 Not consistent with Immunity 0.90-0.99 Equivocal > or=1.00 Consistent with Immunity The presence of rubella IgG antibody suggests immunization or past or current infection withrubella virus.Test performed at [facility] [id number] [place] [address]Ctdqlgq r: FARZANA DUTTA DO,MPH Panel Description: HIV 1/2 ANTIGEN/ANTIBODY,FOURTH GENERATION W/RFL HIV NON-REACTIVE NON-REACTIVE N HIV-1 antigen and HIV-1/HIV- 2 antibodies were AG/AB, 10:42:00 notdetected. There is no laboratory evidence of 4TH GEN HIVinfection. PLEASE NOTE: This information has been disclosed toyou from records whose confidentiality may beprotected by state law. If your state requires suchprotection, then the state law prohibits you frommaking any further disclosure of the informationwithout the specific written consent of the personto whom it pertains, or as otherwise permitted by law.A general authorization for the release of medical orother information is NOT sufficient for this purpose. For additional information please refer [email or web address].KeVita/faq/NON017(This link is being provided for informational/educational purposes only.) The performance of this assay has not been clinicallyvalidated in patients less than 2 years old. Test performed at [facility] [address] [id number]: FARZANA DUTTA DO,MPH Panel Description: TSH W/REFLEX TO FT4 TSH W/REFLEX TO 10:42:00 1.39 mIU/L N Reference Range FT4 > or=20 Years 0.40-4.50 Ranges First trimester 0.26-2.66 Second trimester 0.55-2.73 Third trimester 0.43-2.91REPORT COMMENT:FASTING:NOTest performed at [facility] [place] [address]Director: FARZANA DUTTA DO,MPH Panel Description: Bacteria identified in Urine by Culture CULTURE, URINE, 10:47:00 SEE NOTE CULTURE, URINE, ROUTINE ROUTINE MICRO NUMBER: [id number] TEST STATUS: FINAL SPECIMEN SOURCE: URINE SPECIMEN QUALITY: ADEQUATE RESULT: No GrowthREPORT COMMENT:RTest performed at [facility] [address] [id number]: FARZANA DUTTA DO,MPH Advance Directives Directive Yes / No Effective Date File Name Unknown Encounters Encounter Practice Location Reason(s) Diagnoses Date Provider Care Team Description For Visit [facility] Encounter for Nj Referring In Womens suprvsn of normal 2-201 Gabbi. Provider: Fili CHUA, , first [address], [address] [facility] [address], than 8 weeks Center Carriage Alyssia [facility] of Reji Chavez MD, 120, [place], , [place], [address]. [place], tel: tel: [phone] , [place]. tel: [phone] [facility] Suprvsn of preg w Jan- Nj Referring In Womens history of ect or 0-201 Gabbi. Provider: Fili CHUA, molar preg, first [address], PO Box tri Medical [address], Center Carriage [place], Reji Chavez MD, 120, [place], [id number], [place], [address]. [place], tel:+ tel:[phone] , [place]. tel: [phone] [facility] Personal history Dec-1 Nj In Womens of comp of preg, - Gabbi. rick Keating and the 7 700 [address] [facility] Medical [address], [place] [address]lyss[address], [facility], 120, , [place], [place], tel:[phone] , [place]. tel: [phone] [facility] MittelschmerzEnco Aug-2 Nj Referring In Womens unter for oth Gabbi. Provider: Fili CHUA, cnsl and [address], PO Box advice on Medical [address], procreation [address] Alyssia, [place], [place], 120, [place], , [place], [address]. [place], tel: tel:[phone] , [place]. tel: [phone] [facility] Pelvic and Sep-2 Nj In Womens perineal pain Gabbi. Fili CHUA, 7 700 [address] Medical [address], [place] [address]lyss[address], [facility], 120, , [place], [place], tel:[phone] , [place]. tel: [phone] Brock [place] Personal history Joshua-1 Curiel Referring In Womens of comp of preg, - Luz. Provider: rick Keating and the [address], PO Box puerp Medical [address], Center [address] Alyssia, [place], [place], 120, [place], , [place], [address]. [place], tel:+ tel:[phone] , [place]. tel: [phone] [facility] Unspec ectopic May-2 Curiel In Womens preg w/out -201 Luz. Health HARSHIL, intrauterine preg 7 700 [address] Medical [address], [address] Alyssia, [facility], 120, [id number], [facility] [place], tel:+ [phone] , [place]. tel:[phone] [facility] Unspec ectopic May-1 Curiel In Womens preg w/out 7-201 Luz. Fili CHUA, intrauterine preg 7 700 PO [address] Medical [address], [address] Alyssia, [facility], 120, [id number], [place], [place], tel:+ [phone] , [place]. tel: [phone] [facility] Encounter for May-0 Curiel Referring In Womens test, 9-201 Luz. Provider: Fili CHUA, result unknown [address], PO Box Medical [address], Center [address] Alyssia, [place], [place], 120, [place], [id number], [place], [address]. [facility], tel:+ tel:[phone] [place] [address] , [place]. tel: [phone] [facility] Unspec ectopic May-0 Curiel In Womens preg w/out 9-201 Luz. Fili CHUA, intrauterine preg 7 700 PO Box Medical [address], [place] [address]lyssia, [facility], 120, [id number], [facility] [place], tel:[phone] , [place]. tel: [phone] [facility] Unspec ectopic May-0 Curiel Referring In Womens preg w/out 4-201 Luz. Provider: Fili CHUA, intrauterine preg [address], PO Box Medical [address], Center [address] Alyssia, [place], [place], 120, [place], [id number], [place], [address]. [facility], tel:+ tel:[phone] , [place]. tel: [phone] [facility] Unspec ectopic May-0 Curiel Referring In Womens preg w/out 1-201 Luz. Provider: Fili CHUA, intrauterine [address], PO Box preg Medical [address], state, incidental Center Carriage Dr Alyssia, [place], [place], 120, [place], [id number], [place], [address]. [place], tel: tel: [phone] , [place]. tel: [phone] [facility] Threatened May-0 Curiel Referring In Womens Ultrasound abortionLower 1-201 Luz. Provider: Health [place], abdominal pain, [address], PO Box unspecified Medical [address], Center [address] Alyssia, [place], [place], 120, [place], [id number], [place], [address]. [place], tel: tel: [phone] , [place]. tel: [phone] [facility] Lower abdominal Apr-2 Curiel In Womens pain, unspecified 8-201 Luz. Health PA, 7 700 PO [address] Medical [address], Center Dr Alyssia, [facility], 120, [id number], [place], [place], tel: [phone] , [place]. tel: [phone] [facility] Threatened Apr-2 Curiel Referring In Womens 7-201 Luz. Provider: Fili CHUA, [address], PO Box Medical [address], Center [address] Alyssia, [facility] [place], [place], 120, [place], , [place], [address]. [place], tel: tel: [phone] , [place]. tel: [phone] [facility] Irregular Apr-2 Curiel Referring In Womens MensesThreatened 5-201 Luz. Provider: Fili CHUA, abortionLower [address], PO Box abdominal pain, Medical [address], unspecified Center [address] Alyssia, [facility] [place], [place], 120, [place], [id number], [place], [address]. [place], tel: tel:[phone] , [place]. tel: [phone] Brock [place] Other specified Nov-1 Curiel Referring In Womens hypothyroidism 4-201 Luz. Provider: Fili CHUA, [address], PO Box Medical [address], Center [address] Alyssia, [place], [place], 120, [place], [id number], [place], [address]. [place], tel:+ tel:[phone] , [place]. tel: [phone] Brock [place] Other specified Oct-2 Curiel In Womens hypothyroidism 7-201 Luz. Fili CHUA, 6 700 [facility] Medical [address], [address] Dr Alyssia, [facility], 120, [id number], [place], [place], tel:+ [phone] , [place]. 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 Provider: Fili CHUA, (routine) w/o abn [address], PO Box [facility] Medical [address], Center [address] Alyssia, [place], [place], 120, [place], [id number], [place], [address]. [place], tel:+ tel: [phone] , [place]. tel: [phone] Brock [place] Dec-2 Holdeman Referring In Womens 2-201 Tamera. Provider: Fili CHUA, [address], PO Box Medical [address], Center [address] Alyssia, [facility] [place], 120, [place], [id number], [place], [address]. [place], tel:+ tel: [phone] , [place]. tel: [phone] Brock [place] Oct-2 Holdeman Referring In Womens 0-201 Tamera. Provider: Fili CHUA, 4 700 [address]era PO Box Medical [place] 1522, Center S, [facility] Dr Alyssia, [facility], 120, [place] [id number], [facility] 120, [place], tel: [phone] MD, , [place]. [id number]. tel: tel: [phone] Brock [place] Oct- Holdeman Referring In Womens Tamera. Provider: Health PA, 4 700 Tamera PO Box Medical [place] [address], [place] [address], [address] Dr [address]lyss[address], [facility] [place], 120, [place] [id number], [facility] 120, [place], [place], tel: [phone] MD, , [place]. [id number]. tel: tel: [phone] Brock [place] May- Marc In Womens Tamera. Health [place], 4 700 [address] Medical [address], [place] [address] Alyssia, [facility] [place], 120, [id number], [place], [place], tel: [phone] , [place]. tel: [phone] Family History Family Member Diagnosis Age At [...] Insurance type Covered green party ID Authorization(s) [facility] [id number] [facility] [place] [id number] [facility] [id number] Social History Type Description Quantity Date Captured Alcohol Use Details No Caffeine Use Details No Tobacco Use Status Never smoked tobacco Smoking Status Never smoker Vital Signs Date / Height Weight BMI Pulse Blood Temperature Respiratory Body Head BMI Time: Rate Pressure Rate Surface Circumference percentile Area 156.10 26.7 / lbs 9 mm[Hg] 10:05 kg/m AM rachel (2) Chief Complaint And Reason For Visit [...] Order: Lab Order hCG,Beta Subunit, Qnt, Serum ([id number]) Ordered Date Type Problem Goal Intervention Status [...]
--- OUTSIDE RECORDS SUMMARY | 2017-10-08 05:26 | External Medical Summary | Continuity of Care Document ---
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) w/o 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 Maternal care for excess growth, - second tri, unsp Endo, nutritional and metab diseases - comp preg, second tri 20 weeks gestation of - Acute upper respiratory infection, - unspecified Encounter for suprvsn of normal - , second trimester 15 weeks gestation of - Other specified hypothyroidism Other specified hypothyroidism - Irregular Menses Threatened Lower abdominal pain, unspecified Tylerdebbie Encounter for oth general cnsl and advice [...] LLQ - Active Active Procedures Procedure Date Ultrasound exam of preg uterus, complete Results Test Name Date and Time Measure [...] [address], triEncounter for Center Carriage [employer] [place], suprvsn of normal Reji Chavez [place], , second 120, [employer] [place], , [id number] [place], [address]. [place] gestation of [place], tel: tel: [phone] , [place]. tel: [phone] Brock [place] Maternal care for Apr-0 Nj Referring In Womens Ultrasound excess 4-201 Gabbi. Provider: Fili CHUA growth, second [address], PO Box tri, unspEndo, Medical [address], nutritional and Center Carriage [place], metab diseases [place]ji [place], comp preg, second 120, [place], [id number], tri20 [place], [address]. [place] gestation of [place], tel:+ tel: [phone] , [place]. tel: [phone] Brock [place] Acute upper Mar-0 Nj Referring In Womens respiratory 5-201 Gabbi. Provider: Fili CHUA, infection, [address], PO Box unspecifiedEncoun Medical [address], ter for suprvsn Center Carriage [place], of normal Reji Chavez [place], , second 120, [place], [id number], [id number] [place], [address]. [place] gestation of [place], tel:+ tel: [phone] , [place]. tel: [phone] Brock [place] Maternal care for Feb-2 Nj Referring In Womens excess 6-201 Gabbi. Provider: Fili CHUA, growth, second [address], PO Box tri, unsp14 weeks Medical [address], gestation of Center Carriage [employer] [place], Reji Chavez [place], 120, [place], [id number], [place], [address]. [place], tel:+ tel: [phone] , [place]. tel: [phone] Brock [place] Encounter for Regino-3 Nj Referring In Womens suprvsn of normal 0-201 Gabbi. Provider: Fili CHUA, , first [address], PO Box [id number] weeks Medical [address], gestation of Center Carriage [employer] [place], Reji Chavez [place], 120, [place], [id number], [place], [address]. [place], tel:+ tel: [phone] , [place]. tel: [phone] Brock [place] Encounter for Regino-0 Nj Referring In Womens suprvsn of normal 2-201 Gbabi. Provider: Fili CHUA, , first [address], PO Box trimesterLess Medical [address], than 8 weeks Center Carriage [employer] [place], gestation of Reji Chavez [place], 120, [place], , [place], [address]. [place], tel: tel: [phone] , [place]. tel: [phone] [facility] Suprvsn of preg w Dec-2 Nj Referring In Womens history of ect or 0-201 Gabbi. Provider: Fili CHUA, molar preg, first [address], PO Box tri Medical [address], Center Car[address] Alyssia, [place], [place], 120, [place], , [place], [address]. [place], tel:+ tel:[phone] , [place]. tel: [phone] [facility] Personal history Dec-1 Nj In Womens of comp of preg, 1-201 Gabbi. Fili CHUA, rick and the 7 700 PO Box puer Medical [address], [address], [facility], 120, , [place], [place], tel:[phone] , [place]. tel: [phone] [facility] MittelschmerzEnco Aug-2 Nj Referring In Womens unter for oth 9-201 Gabbi. Provider: Fili CHUA, cnsl and [address], PO Box advice on Medical [address], procreation Center Carriage Dr Alyssia, [facility] [place], 120, [place], , [place], [address]. [place], tel: tel: [phone] , [place]. tel: [phone] [facility] Pelvic and Aug-2 Nj In Womens perineal pain 1-201 Gabbi. Fili CHUA, 7 700 PO [address] Medical [address], [place] [address] Alyssia, [facility], 120, , [place], [place], tel:+ [phone] , [place]. tel: [phone] [facility] Personal history Joshua-1 Curiel Referring In Womens of comp of preg, 5-201 Luz. Provider: Fili CHUA rick and the [address], PO Box [facility] Medical [address], Center [address] Alyssia, [place], [place], 120, [employer] [place], [id number], [place], [address]. [place], tel:+ tel:[phone] , [place]. tel: [phone] [facility] Unspec ectopic May-2 Curiel In Womens preg w/out 3-201 Luz. Fili CHUA, intrauterine preg 7 700 PO [address] Medical [address], Center Dr Alyssia, [facility], 120, [id number], [facility] [place], tel:+ [phone] , [place]. tel: [phone] [facility] Unspec ectopic May-1 Curiel In Womens preg w/out 7-201 Luz. Fili CHUA, intrauterine preg 7 700 PO [address] Medical [address], Center Dr Alyssia, [facility], 120, [id number], [place], [place], tel:+ [phone] , [place]. tel: [phone] [facility] Encounter for May-0 Curiel Referring In Womens test, 9-201 Luz. Provider: Fili CUHA, result unknown 7 [address], PO Box Medical [address], Center [address], [facility] [place], 120, [employer] [place], [id number], [place], [address]. [place], tel: tel: [phone] , [place]. tel: [phone] [facility] Unspec ectopic May-0 Curiel In Womens preg w/out 9-201 Luz. Fili CHUA, intrauterine preg 7 700 PO Box Medical [address], [address], [facility], 120, [id number], [place], [place], tel:+ [phone] , [place]. tel: [phone] [facility] Unspec ectopic May-0 Curiel Referring In Womens preg w/out 4-201 Luz. Provider: Health PA, intrauterine preg [address], PO Box Medical [address], [address] Alyssia, [place], [place], 120, [place], [id number], [place], [address]. [place], tel: tel: [phone] , [place]. tel: [phone] [facility] Unspec ectopic May-0 Curiel Referring In Womens preg w/out 1-201 Luz. Provider: Health HARSHIL, intrauterine 7 [address], PO Box preg Medical [address], state, incidental Center Carriage Dr Alyssia, [place], [place], 120, [place], , [place], [address]. [place], tel: tel: [phone] , [place]. tel: [phone] [facility] Threatened May-0 Curiel Referring In Womens Ultrasound abortionLower 1-201 Luz. Provider: Fili CHUA, abdominal pain, 7 [address], PO Box unspecified Medical [address], Center [address] Alyssia, [place], [place], 120, [place], , [place], [address]. [place], tel: tel: [phone] , [place]. tel: [phone] [facility] Lower abdominal Apr-2 Curiel In Womens pain, unspecified 8-201 Luz. Health HARSHIL, 7 700 PO Box Medical [address], [address], [facility], 120, [id number], [place], [place], tel: [phone] , [place]. tel: [phone] [facility] Threatened Apr-2 Curiel Referring In Womens 7-201 Luz. Provider: Fili CHUA, 7 [address], PO Box Medical [address], Center [address] Alyssia, [facility] [place], [place], 120, [place], [id number], [place], [address]. [place], tel: tel: [phone] , [place]. tel: [phone] Brock [place] Irregular Apr-2 Curiel Referring In Womens MensesThreatened 5-201 Luz. Provider: Fili CHUA, abortionLower 7 [address], PO Box abdominal pain, Medical [address], unspecified [address] Alyssia, [place], [place], 120, [employer] [place], [id number], [place], [address]. [place], tel: tel: [phone] , [place]. tel: [phone] [facility] Other specified Nov-1 Curiel Referring In Womens hypothyroidism 4-201 Luz. Provider: Fili CHUA, [address], PO Box Medical [address], Center [address] Alyssia, [place], [place], 120, [place], [id number], [place], [address]. [place], tel: tel:[phone] , [place]. tel: [phone] Brock [place] Other specified Oct-2 Curiel In Womens hypothyroidism 7-201 Luz. Fili CHUA, 6 700 PO [address] [facility] Medical [address], [address], [facility], 120, [id number], [place], [place], tel: [phone] , [place]. 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 Provider: Fili CHUA, (routine) w/o abn 6 [address], PO Box findings Medical [address], Center Car[address] Alyssia, [place], [place], 120, [employer] [place], [id number], [place], [address]. [place], tel: tel:[phone] , [place]. tel: [phone] Brock [place] Dec-2 Holdeman Referring In Womens 2-201 Tamera. Provider: Fili CHUA, [address], PO Box Medical [address], Center Car[address] Alyssia, [place], [place], 120, [place], [id number], [place], [address]. [place], tel: tel: [phone] , [place]. tel: [phone] Brock [place] Nov-2 Holdeman Referring In Womens 0-201 Tamera. Provider: Health [place], 4 700 Tamera PO Box Medical [place] 1522, Center S, [address], [facility] [place], 120, [place] [id number], [facility] 120, [place], [place], tel:+ [phone] [place], , . [id number]. tel: tel: [phone] Brock [place] Oct- Holdeman Referring In Womens 9-201 Tamera. Provider: Health [place], 4 700 [place] PO Box Medical [place] [address], [facility], [facility] Dr Alyssia, [facility], 120, [place] [id number], [facility] 120, [place], [place], tel: [phone] [place], , [place]. [id number]. tel: tel: [phone] Brock [place] May-2 Holdeman In Womens 1-201 Tamera. Health [place], 4 700 Box Medical [address], [place] [address]lyssia, [facility] [place], 120, [id number], [place], [place], tel: [phone] , [place]. tel: [phone] Family History Family Member Diagnosis Age At [...] name Insurance type Covered democrat ID Authorization(s) [employer] [place] [id number] [facility] [id number] [facility] [id number] Social History Type Description Quantity Date Captured [...] Complete OB Ultrasound > 14 Weeks Ordered ([id number]) Future Order: Lab Order hCG,Beta Subunit, Qnt, Serum Ordered ([id number]) Date Type Problem Goal Intervention Status Start [...]
--- OUTSIDE RECORDS SUMMARY | 2017-10-08 05:27 | External Medical Summary | Continuity of Care Document ---
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 Provider: Health HARSHIL, diseases comp 8 [address], PO [address] preg, second Medical [address], [facility] supr[facility] of normal Reji [place], [place], , second 120, [place], , [id number] weeks [place]Y [place], [id number]. [place] gestation of [place], tel: tel: [phone] , [place]. tel: [phone] Brock [place] June-0 Nj In Womens 7-201 Gabbi. Health HARSHIL, 8 700 [address] Medical [address], [address] [place] Reji [place], 120, [id number], [place], [place], tel:+ [phone] , [place]. tel: [phone] Brock [place] Encounter for May-0 Nj Referring In Womens suprvsn of normal 201 Gabbi. Provider: Health HARSHIL, , second [address], PO Box [id number] weeks Medical [address], gestation of Center Carriage [place], Reji Chavez, [place], 120, [place], [id number], [place], [address]. [place], tel:+ tel: [phone] , [place]. tel: [phone] [facility], nutritional Apr-0 Nj Referring In Womens and metab Gabbi. Provider: Health HARSHIL, diseases comp [address], PO Box preg, second Medical [address], triEncounter for Center Carriage [place], suprvsn of normal [place]ji [place], [place], , second 120, [place], [id number], [id number] [place], [address]. [place] gestation of [place], tel:+ tel: [phone] , [place]. tel: [phone] Brock [place] Maternal care for Apr-0 Nj Referring In Womens Ultrasound excess Gabbi. Provider: Health HARSHIL, growth, second [address], PO Box tri, unspEndo, Medical [address], nutritional and Center Carriage [place], metab diseases Reji Chavez [place], comp preg, second 120, [place], [id number], [id number] [place], [address]. [place] gestation of [place], tel:+ tel:[phone] , [place]. tel: [phone] Brock [place] Acute upper Mar-0 Nj Referring In Womens respiratory 5-201 Gabbi. Provider: Health HARSHIL, infection, [address], PO Box unspecifiedEncoun Medical [address], ter for suprvsn Center Carriage [place], of normal [place]ji [place], [place], , second 120, [place], [id number], [id number] [place], [address]. [place] gestation of [place], tel:+ tel: [phone] , [place]. tel: [phone] Brock [place] Maternal care for Mar-2 Nj Referring In Womens excess 6-201 Gabbi. Provider: Fili CHUA, growth, second [address], PO Box tri, [id number] weeks Medical [address], gestation of Center Carriage [place], Reji Chavez [place], 120, [place], [id number], [place], [address]. [place], tel:+ tel:[phone] , [place]. tel: [phone] Brock [place] Encounter for Feb-3 Nj Referring In Womens suprvsn of normal 0-201 Gabbi. Provider: Fili CHUA, , first [address], PO Box [id number] weeks Medical [address], gestation of Center Carriage [place], Reji Chavez [place], 120, [place], [id number], [place], [address]. [place], tel: tel:[phone] , [place]. tel: [phone] Brock [place] Encounter for Feb-0 Nj Referring In Womens suprvsn of normal 2-201 Gabbi. Provider: Fili CHUA, , first 8 700 Miriam Ewgina, PO Box trimesterLess Medical [address], than 8 weeks Center Carriage [place], gestation of Reji Chavez [place], 120, [place], [id number], [place], [address]. [place], tel: tel: [phone] , [place]. tel: [phone] Brock [place] Suprvsn of preg w Jan- Nj Referring In Womens history of ect or 0-201 Gabbi. Provider: Fili CHUA, molar preg, first [address], PO Box tri Medical [address], Center Carriage [place], Dr, [place], [place], 120, [place], , [place], [address]. [place], tel:+ tel:[phone] , [place]. tel:[phone] Associates [facility] Personal history Dec- Nj In Womens of comp of preg, - Gabbi. rick Keating and the 7 700 PO Box puerp Medical [address], [address]lyssia, [facility], 120, [id number], [place], [place], tel:+ [phone] , [place]. tel: [phone] [facility] MittelschmerzEnco Sep-2 Nj Referring In Womens unter for oth Gabbi. Provider: Fili CHUA, cnsl and [address], PO Box advice on Medical [address], procreation [address] Alyssia, [place], [place], 120, [place], , [place], [address]. [place], tel:+ tel:[phone] , [place]. tel: [phone] Brock [place] Pelvic and Sep- Nj In Womens perineal pain Gabbi. Fili CHUA, 7 700 PO Box Medical [address], [address], [facility], 120, [id number], [facility] [place], tel:+ [phone] , [place]. tel: [phone] Brock [place] Personal history Joshau-1 Curiel Referring In Womens of comp of preg, 5- Luz. Provider: rick Keating and the 7 [address], PO Box puerp Medical [address], [address], [place], [place], 120, [place], , [place], [address]. [place], tel:+ tel:[phone] , [place]. tel: [phone] [facility] Unspec ectopic May-2 Curiel In Womens preg w/out 3-201 Luz. Health HARSHIL, intrauterine preg 7 700 PO [address] Medical [address], [address]lyssia, [facility], 120, [id number], [place], [place], tel:+ [phone] , [place]. tel:[phone] [facility] Unspec ectopic May-1 Curiel In Womens preg w/out 7-201 Luz. Health HARSHIL, intrauterine preg 7 700 PO Box Medical [address], [address]lyssia, [facility], 120, [id number], [place], [place], tel:[phone] , [place]. tel: [phone] [facility] Encounter for May-0 Curiel Referring In Womens test, 9-201 Luz. Provider: Fili CHUA, result unknown 7 700 Miriam Nidia, PO Box Medical [address], [facility] Dr Alyssia, [facility], [place], [place], 120, [place], , [place], [address]. [place], tel:+ tel:[phone] , [place]. tel: [phone] [facility] Unspec ectopic May-0 Curiel In Womens preg w/out 9-201 Luz. Fili CHUA, intrauterine preg 7 700 PO Box Medical [address], [address]lyssia, [facility], 120, [id number], [place], [place], tel:[phone] , [place]. tel: [phone] [facility] Unspec ectopic May-0 Curiel Referring In Womens preg w/out 4-201 Luz. Provider: Fili CHUA, intrauterine preg [address], PO Box Medical [address], [facility] Dr Alyssia, [place], [place], 120, [place], , [place], [address]. [facility], tel:+ tel:[phone] , [place]. tel: [phone] [facility] Unspec ectopic May-0 Curiel Referring In Womens preg w/out 1-201 Luz. Provider: Health HARSHIL, intrauterine [address], PO Box preg Medical [address], state, incidental [facility] [address] [address] Alyssia, [place], [place], 120, [place], [id number], [place], [address]. [place], tel: tel: [phone] , [place]. tel: [phone] [facility] Threatened May-0 Curiel Referring In Womens Ultrasound abortionLower 1-201 Luz. Provider: Fili CHUA, abdominal pain, [address], PO Box unspecified Medical [address], [address] Alyssia, [facility], [place], [place], 120, [place], , [place], [address]. [place], tel: tel: [phone] , [place]. tel: [phone] [facility] Lower abdominal Apr-2 Curiel In Womens pain, unspecified 8-201 Luz. Fili CHUA, 7 700 PO Box Medical [address], [address] Dr Alyssia, [facility], 120, [id number], [place], [place], tel: [phone] , [place]. tel: [phone] [facility] Threatened Apr-2 Curiel Referring In Womens 7-201 Luz. Provider: Fili CHUA, [address], PO Box Medical [address], [address] Alyssia, [place], [place], 120, [place], , [place], [address]. [place], tel: tel: [phone] , [place]. tel: [phone] [facility] Irregular Apr-2 Curiel Referring In Womens MensesThreatened 5-201 Luz. Provider: Fili CHUA, abortionLower [address], PO Box abdominal pain, Medical [address], unspecified [address] Alyssia, [facility], [place], [place], 120, [place], [id number], [place], [address]. [place], tel: tel: [phone] , [place]. tel: [phone] Brock [place] Other specified Nov-1 Curiel Referring In Womens hypothyroidism 4-201 Luz. Provider: Fili CHUA, 6 700 [address], PO Box Medical [address], [address] Alyssia, [place], [place], 120, [place], [id number], [place], [address]. [place], tel:+ tel:[phone] , [place]. tel: [phone] Brock [place] Other specified Oct-2 Curiel In Womens hypothyroidism 7-201 Luz. Fili CHUA, 6 700 [facility] Medical 15[address], [address] Dr Alyssia, [facility], 120, [id number], [place], [place], tel: [phone] , [place]. tel: [phone] Brock [place] Encntr for nutrition technician Denilson-1 Curiel Referring In Womens exam (general) 9-201 Luz. Provider: Fili CHUA, (routine) w/o abn 6 700 [address]iam [place], PO Box [facility] Medical [address], [address] Alyssia, [place], [place], 120, [place], [id number], [place], [address]. [place], tel:+ tel: [phone] , [place]. tel: [phone] Brock [place] Dec-2 Holdeman Referring In Womens 2-201 Tamera. Provider: Fili CHUA, 4 700 [address], PO Box Medical [address], [address] Alyssia, [place], [place], 120, [place], [id number], [place], [address]. [place], tel:+ tel: [phone] , [place]. tel: [phone] Brock [place] Oct-2 Holdeman Referring In Womens 0-201 Tamera. Provider: Fili CHUA, 4 700 Tamera PO Box Medical [facility], Center S, [address] Dr Alyssia, [facility], 120, [place] [id number], [place], [facility], [place] 120, [place], tel:[phone] [place], , . [id number]. tel: tel:[phone] Brock [place] Oct- Holdeman Referring In Womens -201 Tamera. Provider: Health PA, 4 700 Tamera PO Box Medical [place] [address], [address] [address], [address] Dr [address]lyssia, [facility], 120, [place] [id number], [place], [facility], [place] 120, [place], [place], tel:[phone] [place], , . [id number]. tel: [phone] Brock [place] May- Holdeman In Womens - Tamera. Health PA, 4 700 PO [address] Medical [address], [address]lyss[address], [facility], 120, [id number], [place], [facility], tel:[phone] , [place]. tel: [phone] Family History Family Member Diagnosis Age At [...] name Insurance type Covered democrat ID Authorization(s) [facility] [place] [id number] [facility] [place] [id number] [facility] [id number] Social History Type Description Quantity Date Captured [...] Complete OB Ultrasound > 14 Weeks Ordered ([id number]) Future Order: Lab Order hCG,Beta Subunit, Qnt, Serum Ordered ([id number]) Date Type Problem Goal Intervention Status Start [...]
[2017-10-08] MEDS: LR 1,000 ML IV PRN ×3 (05:30→09:21)
[2017-10-08 05:54] VITALS: BMI 28.3
--- NOTE | 2017-10-08 08:50 | Anesthesia Preoperative Report ---
Anesthesia Epidural/Spinal Rec - Date and Time Date: 10/08/17 Preoperative Diagnosis: induction of labor Procedure: Labor Epidural Plan: Epidural - Vital Signs Vital Signs: Temperature 98.3 F 10/08/17 06:19 Pulse Rate 83 10/08/17 06:19 Respiratory Rate 16 10/08/17 06:19 Blood Pressure 99/64 10/08/17 06:19 /Para: P:1 - Medictaions & Allergies Inpatient Medications: Current Medications Acetaminophen (Tylenol) 500 - 1,000 mg PO Q4H PRN PRN Reason: Pain Al Hydroxide/Mg Hydroxide (Maalox Plus) 30 ml PO Q3H PRN PRN Reason: Indigestion Calcium Carbonate (Tums) 500 - 1,000 mg PO Q2H PRN PRN Reason: Indigestion Carboprost Tromethamine (Hemabate) 250 mcg IM O PRN PRN Reason: .Downtime Dextrose/Lactated Ringer's (Dextrose 5%-Lactated Ringers) 1,000 mls @ 125 mls/ hr IV .Q8H PRN PRN Reason: Labor Oxytocin (Pitocin Drip) 30 unit in 500 mls @ 2 mls/hr IV .Q24H PRN; Protocol PRN Reason: Induction/Augmentation Lactated Ringer's (Lactated Ringers) 1,000 mls @ 999 mls/hr IV .Q1H1M PRN Lidocaine HCl (Xylocaine-Mpf 1% Vial) 0.2 mg ID O PRN PRN Reason: IV Start Methylergonovine Maleate (Methergine) 0.2 mg IM O PRN Misoprostol (Cytotec) 800 mcg IA ONCE PRN Sodium Chloride (Iv Flush) 10 - 80 ml IV PRN PRN PRN Reason: Flushing Allergies/Adverse Reactions: Allergies Allergy/AdvReac Type Severity Reaction Status Date / Time No Known Allergies Allergy Verified 09/23/17 09:25 - Home Medications Home Medications: Home Medications Medication Instructions Recorded Confirmed Type Vits W-Ca,Fe,Fa(<1MG) 1 tab PO DAILY #0 tab 07/16/13 09/23/17 History () Ferrous Sulfate [Iron] 325 mg PO DAILY 09/23/17 09/23/17 History - Medical History Other History: Reports: Now - Surgical History Reproductive Surgery/Treatment: DENIES: Section Anesthesia Reactions: None Hx Family Anesthesia Reaction: No History of Motion Sickness: No - Social History Smoking Status: Never smoker Second Hand Exposure: No Substance Use Type: does not use Alcohol Intake Frequency: does not drink Hx Chewing Tobacco Use: No - Pertinent Findings Lab Data: CBC and BMP 10/08/17 05:48 EKG Rhythm: Normal Sinus Rhythm - Physical Exam Respiratory Exam: lungs clear Cardiovascular Exam: regular rate and rhythm - Airway Assessment Mallampati Score: II TMD: 3 Fingerbreadths Neck Extension: good Overall Assessment: may be difficult intubation - ASA ASA Score: 2 - Discussion Discussion: Discussed risks/options/alternatives of anesthesia and questions answered. Patient consents. Nursing pain assessment noted. Anesthesia Discussion: spouse Attestation Statement: Prior to the delivery of any anesthetic medication, I examined the patient, developed the plan, obtained the patient's consent and discussed the risk and benefits of the procedure with the patient/guardian.
[2017-10-08] MEDS ORDERED: HYDROCODONE/APAP 5mg/325mg TABLET PO PRN (13:42)
[2017-10-08] MEDS ORDERED: HYDROCORTISONE 2.5% CREAM 30gm RECTALLY PRN (13:42)
[2017-10-08] MEDS ORDERED: DiphenhydrAMINE 25 MG CAPSULE PO PRN (13:42)
[2017-10-08] MEDS ORDERED: OXYTOCIN DRIP 30 UNIT/500 ML ML IV SCH (13:45)
[2017-10-08] MEDS ORDERED: NALOXONE 0.4 MG/ML INJECTION IVP PRN (13:46)
[2017-10-08] MEDS ORDERED: ONDANSETRON 4 MG/2 ML INJECTION IVP PRN (13:46)
[2017-10-08] MEDS ORDERED: DiphenhydrAMINE 50 MG/ML INJECTION IVP PRN (13:46)
[2017-10-08] MEDS ORDERED: ROPIVACAINE 1% 10MG/ML INJ 200 MG, SUFentanil 50 MCG in NS 100 ML EPI PRN (13:46)
--- NOTE | 2017-10-08 17:28 | Anesthesia Postoperative Note ---
- Date and Time Date: 10/08/17 Time: 17:28 - Status Patient Participated in Evaluation: Patient Participated in Person Vital Signs: Temperature 98.3 F 10/08/17 06:19 Pulse Rate 83 10/08/17 06:19 Respiratory Rate 16 10/08/17 06:19 Blood Pressure 99/64 10/08/17 06:19 Respiratory Function: Airway Patent Cardiovascular Function: Regular Pulse EKG: Sinus Rhythm Mental Status: Alert and Oriented Pain Intensity: 0 Hydration: Taking PO Fluids Nausea/Vomiting: None Complications During Recover: None Apparent - Follow-Up Instructions Instructions: Per Surgeon
--- NOTE | 2017-10-08 18:09 | Labor and Delivery Note ---
DATE OF DELIVERY 10/08/2017 GERARDO Ma is a 31-year-old 3, para 1 at 39 weeks 2 days gestational age who was brought in for a Pitocin induction this morning due to LGA. Her membranes were ruptured artificially, returning clear fluids. She received an epidural. She progressed nicely throughout labor. She pushed for approximately 45 minutes and then had a spontaneous vaginal delivery in the LOP position of a viable female , Apgars 9/9, weight 4193 g, name "Harjeet." Baby was vigorous at delivery so she was placed on mom's abdomen and the cord clamping was delayed for approximately three minutes. The placenta delivered spontaneously. She had a large second-degree laceration that was repaired with Vicryl. Mom and baby tolerated the delivery well. WINSOME
[2017-10-08] MEDS: IBUPROFEN 800 MG TABLET PO PRN (20:56)
[2017-10-09] MEDS: IBUPROFEN 800 MG TABLET PO PRN (08:19)
[2017-10-09] MEDS ORDERED: DOCUSATE CALCIUM 240 MG CAPSULE PO SCH (09:00)
--- NOTE | 2017-10-09 11:19 | Progress Note ---
OB PP Progress Note Free Text - Date Date: 10/09/17 - Progress Note Progress Note: vss af doing well cont current care q&a-krb
[2017-10-09 13:50] VITALS: O2SAT 98
[2017-10-10 07:23] VITALS: BP 115/74; PULSE 66; RESP 12; TEMP 98
--- NOTE | 2017-10-10 13:12 | Progress Note ---
OB PP Progress Note Free Text - Date Date: 10/10/17 - Progress Note Progress Note: ppd2 desires dc no c/o instructions f/u 5-6wks
== END 2017-10-10 14:01 | disposition home or self-care (01) | DRG 775 ==
LOC: MC 05:20
PROVIDERS: ADMIT Obstetrics & Gynecology; ATTEND Obstetrics & Gynecology